=== PATIENT | female | born 1930 | race Caucasian/White ===

== ENCOUNTER 2017-01-31 10:33 | Emergency (ER) | payer OTHER, MEDICARE ==
[2017-01-31 10:44] VITALS: TEMP 97.4; BMI 20.2
[2017-01-31] MEDS ORDERED: morphine CARPU-JECT 4 MG/1 ML DISP.SYRIN IVPUSH ONE (10:47)
[2017-01-31] MEDS ORDERED: morphine CARPU-JECT 2 MG/1 ML DISP.SYRIN ONE (11:38)
--- NOTE | 2017-01-31 11:46 | PDOC ---
History of Present Illness - History of Present Illness Initial Comments: 01/31/17 11:49 The patient is an 86 year old female with a past medical history of HLD, dementia, presents to the emergency department with a complaint of left arm pain after an unwitnessed fall roughly 30 minutes prior to arrival. Patient deneis dizziness prior to fall. She states she lost her balance, possibly tripping over the table leg. Patients daughter heard the fall and came to her immediately. Daughter states she was found lying on her side. Patient reports difficulty moving her with left arm secondary to pain. Pain is on the left upper arm and upper side. No head trauma or loss of consciousness. Denies heart disease of lung disease. PCP: Prasad Golden Office: Surgical history: hysterectomy, pelvis fracture <Andres Gaitan - Last Filed: 01/31/17 11:53> <Rere Adame - Last Filed: 01/31/17 13:41> <Tennille Gann - Last Filed: 02/01/17 19:48> - General Chief Complaint: Injury Stated Complaint: ? LONG BONE FX FALL Time Seen by Provider: 01/31/17 10:47 Past History <Andres Gaitan - Last Filed: 01/31/17 11:53> <Rere Adame - Last Filed: 01/31/17 13:41> - Past Medical History Anemia: No Asthma: No Cancer: No Cardiac Disorders: No CVA: No COPD: No CHF: No Dementia: No Diabetes: No GI Disorders: Yes (COLONIC POLYPS) Disorders: No HTN: No Hypercholesterolemia: Yes Liver Disease: No Suicide Attempt (Hx): No Seizures: No Thyroid Disease: No Other medical history: GLUCOMA,OP,PLEVIS FX - Surgical History Abdominal Surgery: No Appendectomy: No Cardiac Surgery: No Cholecystectomy: No Lung Surgery: No Orthopedic Surgery: No - Immunization History Immunization Up to Date: No - Psycho/Social/Smoking Cessation Hx Anxiety: No Suicidal Ideation: No Smoking Status: No Smoking History: Never smoked Have you smoked in the past 12 months: No Number of Cigarettes Smoked Daily: 0 Information on smoking cessation initiated: No Hx Alcohol Use: No Drug/Substance Use Hx: No Substance Use Type: None Hx Substance Use Treatment: No <Tennille Gann - Last Filed: 02/01/17 19:48> - Past Medical History Allergies/Adverse Reactions: Allergies Allergy/AdvReac Type Severity Reaction Status Date / Time No Known Allergies Allergy Verified 01/31/17 10:37 Home Medications: Ambulatory Orders Atorvastatin Ca [Lipitor] 20 mg PO HS #0 tablet 06/08/13 Docusate Sodium [Colace -] 100 mg PO BID #0 capsule 06/08/13 Patient's Own Medication [Patient's Own Med (Nf) -] 1 each OU BID #0 med Alendronate Na [Fosamax (Weekly)] 70 mg PO Q7D 04/27/14 Aspirin [ASA -] 81 mg PO DAILY 04/27/14 Review of Systems - Review of Systems Able to Perform ROS?: Yes Comments:: 01/31/17 11:53 GENERAL/CONSTITUTIONAL: No fever or chills. No weakness. HEAD, EYES, EARS, NOSE AND THROAT: No change in vision. No ear pain or discharge. No sore throat. CARDIOVASCULAR: No chest pain or shortness of breath. RESPIRATORY: No cough, wheezing, or hemoptysis. GASTROINTESTINAL: No nausea, vomiting, diarrhea or constipation. GENITOURINARY: No dysuria, frequency, or change in urination. MUSCULOSKELETAL: Yes: left upper arm and shoulder pain. No neck or back pain. SKIN: No rash NEUROLOGIC: No headache, vertigo, loss of consciousness, or change in strength/ sensation. ENDOCRINE: No increased thirst. No abnormal weight change. HEMATOLOGIC/LYMPHATIC: No anemia, easy bleeding, or history of blood clots. ALLERGIC/IMMUNOLOGIC: No hives or skin allergy. Is the patient limited Indonesian proficient: No <Andres Gaitan - Last Filed: 01/31/17 11:53> *Physical Exam - Vital Signs Last Vital Signs Temp Pulse Resp BP Pulse Ox 97.4 F L 74 18 178/86 100 01/31/17 10:40 01/31/17 10:40 01/31/17 10:40 01/31/17 10:40 01/31/17 10:40 <Andres Gaitan - Last Filed: 01/31/17 11:53> - Vital Signs Last Vital Signs Temp Pulse Resp BP Pulse Ox 97.4 F L 74 18 178/86 100 01/31/17 10:40 01/31/17 10:40 01/31/17 10:40 01/31/17 10:40 01/31/17 10:40 - Physical Exam Comments: 01/31/17 12:29 GENERAL: The patient is in no acute distress. HEAD: Normal with no obvious signs of trauma. EYES: PERRLA, EOMI, sclera anicteric, conjunctiva clear. ENT: Ears normal, nares patent, oropharynx clear without exudates. Moist mucous membranes. NECK: Normal range of motion, supple without lymphadenopathy, JVD, or masses. LUNGS: Breath sounds equal, clear to auscultation bilaterally. No wheezes, and no crackles. HEART:Regular rate and rhythm, normal S1 and S2 without murmur, rub or gallop. ABDOMEN: Soft, nontender, normoactive bowel sounds. No guarding, no rebound. EXTREMITIES: Left shoulder appears dislocated, with decerased range of movement of left arm. No edema. No clubbing or cyanosis. No erythema, or tenderness. NEUROLOGICAL: Cranial nerves II through XII grossly intact. Normal speech. No focal neurological deficits. MUSCULOSKELETAL: Back non-tender to palpation, no CVA tenderness SKIN: Warm, Dry, normal turgor, no rashes or lesions noted. <[employer],Rere - Last Filed: 01/31/17 13:41> - Vital Signs Last Vital Signs Temp Pulse Resp BP Pulse Ox 97.4 F L 74 18 178/86 100 01/31/17 10:40 01/31/17 10:40 01/31/17 10:40 01/31/17 10:40 01/31/17 10:40 <Tennille Gann - Last Filed: 02/01/17 19:48> Procedures - Joint Reduction Left Progress: 01/31/17 13:43 Successful reduction with external rotation adduction and slight traction. Axillary intact. AIN, PIN, ulnar intact, radial pulse 2\4. Finger flexion and other hand motion strength 5/5. <Uts,Rere - Last Filed: 01/31/17 13:41> - Joint Reduction Left Joint Reduction Site: left: Shoulder Pre-Procedure NV Exam: normal Conscious Sedation: No Reduction Attempts: 1 Complications: No Post Joint Reduction Film: joint reduced Immobilized: Yes <Tennille Gann - Last Filed: 02/01/17 19:48> Heart Score/ECG Review #1 ECG reviewed & interpreted by me at: 13:19 01/31/17 13:19 Twelve-lead EKG was performed and reviewed by me. There is normal sinus rhythm with a normal rate of 73bpm. The axis is normal. The intervals are abnormal - pr : 138ms, QRS:82ms, QTc:500ms (prolonged). There are no ST elevations or depressions. T wave inversions inferior-laterally. <Tennille Gann - Last Filed: 02/01/17 19:48> ED Treatment Course - Medications Given in the ED: ED Medications Discontinued Medications Generic Name Dose Route Start Last Admin Trade Name Freq PRN Reason Stop Dose Admin Morphine Sulfate 2 mg 01/31/17 10:47 01/31/17 11:43 Morphine Injection - IVPUSH 01/31/17 10:48 2 mg ONCE ONE Administration <Andres Gaitan - Last Filed: 01/31/17 11:53> - LABORATORY CBC & Chemistry Diagram: 01/31/17 11:50 01/31/17 11:50 - ADDITIONAL ORDERS Additional order review: 01/31/17 11:50 RBC 4.41 MCV 91.4 MCHC 33.3 RDW 15.5 MPV 7.4 L Neutrophils % 59.2 Lymphocytes % 32.9 Monocytes % 5.8 Eosinophils % 1.2 D Basophils % 0.9 - RADIOLOGY Radiograph Interpretation: 01/31/17 13:42 Left humerus and shoulder XR impression reported by Dr. Cherry: No acute fracture identified. Findings consistent with anterior dislocation of the left shoulder joint. Head CT impression reported by Dr. Cherry: No significant interval change or acute intracranial pathology is identified - Medications Given in the ED: ED Medications Discontinued Medications Generic Name Dose Route Start Last Admin Trade Name Freq PRN Reason Stop Dose Admin Morphine Sulfate 2 mg 01/31/17 10:47 01/31/17 11:43 Morphine Injection - IVPUSH 01/31/17 10:48 2 mg ONCE ONE Administration <Rere Adame - Last Filed: 01/31/17 13:41> - LABORATORY CBC & Chemistry Diagram: 01/31/17 11:50 01/31/17 11:50 <Tennille Gann - Last Filed: 02/01/17 19:48> Medical Decision Making - Medical Decision Making A portion of this note was documented by scribe services under my direction. I have reviewed the details of the note, within reason, and agree with the documentation with the following case summary and management plan written by me. Nursing documentation reviewed and incorporated into medical decision making this is an 86 yo F h/o dementia and osteopenia She presents to the ER s/p fall Pt states she was in the kitchen and fell She denies chest pain, shortness of breath, palpitations, focal weakness or numbness He daughter was at home and was readily available to assist this patient She noted no seizure like activities and NO alterations in mentation On examination Pt is pleasant RRR Lungs clear Left shoulder dislocation Radial, medial, ulnar motor and sensation intact 2+ RP and UP 01/31/17 13:19 Laboratory Tests 01/31/17 01/31/17 11:50 11:50 WBC 8.1 D Hgb 13.4 Hct 40.3 Plt Count 223 Neutrophils % 59.2 Lymphocytes % 32.9 BUN 8 Creatinine 0.5 L Random Glucose 104 Creatine Kinase 122 Troponin I < 0.02 01/31/17 13:41 Shoulder reduced at bedside WITHOUT sedation Head CT: no acute ICH 01/31/17 13:46 Will repeat X ray Discharge to home in sling Follow up with Ortho Fall from standing Shoulder dislocation and subsequent reduction <Tennille Gann - Last Filed: 02/01/17 19:48> *DC/Admit/Observation/Transfer - Attestations Scribe Attestion: 01/31/17 11:53 Documentation prepared by Andres Gaitan, acting as medical staff services manager for Tennille Gann MD <Andres Gaitan - Last Filed: 01/31/17 11:53> - Attestations Scribe Attestion: 01/31/17 12:30 Documentation prepared by Rere Adame, acting as medical staff services manager for Tennille Gann MD/DO. <Rere Adame - Last Filed: 01/31/17 13:41> - Discharge Dispostion Admit: No <Tennille Gann - Last Filed: 02/01/17 19:48> Diagnosis at time of Disposition: Fall from standing Qualifiers: Encounter type: initial encounter Qualified Code(s): W19.XXXA - Unspecified fall, initial encounter Dislocation, shoulder, anterior Qualifiers: Encounter type: initial encounter Laterality: left Qualified Code(s): S43.015A - Anterior dislocation of left humerus, initial encounter - Discharge Dispostion Disposition: HOME Condition at time of disposition: Stable - Referrals Referrals: Prasad Golden MD [Primary Care Provider] - Saud Fisher MD [Staff Physician] - - Patient Instructions Printed Discharge Instructions: How to Prevent Falls, DI for Shoulder Dislocation Additional Instructions: Angela Thank you for coming in to the ER today Please be careful when walking Please wear sling for the next 48 hours After that please start range of motion exercises You can follow up with orthopedics in 1 week
[2017-01-31 11:58] LABS: BASOPHIL 0.9 % (0-2.0); EOSINOPHIL 1.2 % (0-4.5); MCH 30.4 pg (25.7-33.7); MCHC 33.3 g/dl (32.0-36.0); MEAN CELL VOLUME 91.4 fl (80-96); MEAN PLT VOLUME 7.4 fl (7.5-11.1); NEUTROPHILS 59.2 % (42.8-82.8); PLATELET COUNT 223 K/MM3 (134-434); RDW 15.5 % (11.6-15.6); WHITE BLOOD COUNT 8.1 K/mm3 (4.0-10.0)
[2017-01-31 12:27] LABS: ALBUMIN 3.6 g/dl (3.4-5.0); ALK PHOS 76 U/L (45-117); ANION GAP 11 (8-16); BILIRUBIN,TOTAL 0.8 mg/dL (0.2-1.0); CALCIUM 8.5 mg/dL (8.5-10.1); CO2 24 mmol/L (21-32); COCKROFT - GAULT 57.1285; CREATININE 0.5 mg/dL (0.55-1.02); GLUCOSE,RANDOM 104 mg/dL (74-106); SGOT/AST 26 U/L (15-37); SGPT/ALT 23 U/L (12-78); TOT PROT 7.2 g/dl (6.4-8.2)
[2017-01-31 12:29] LABS: TROPONIN I < 0.02 ng/ml (0.00-0.05)
[2017-01-31 14:48] VITALS: BP 152/85; PULSE 78
--- NOTE | 2017-02-01 13:38 | EKG ---
Test Reason : Blood Pressure : / mmHG Vent. Rate : 073 BPM Atrial Rate : 073 BPM P-R Int : 138 ms QRS Dur : 082 ms QT Int : 454 ms P-R-T Axes : 078 043 -63 degrees QTc Int : 500 ms NORMAL SINUS RHYTHM POSSIBLE LEFT ATRIAL ENLARGEMENT LEFT VENTRICULAR HYPERTROPHY WITH REPOLARIZATION ABNORMALITY PROLONGED QT ABNORMAL ECG WHEN COMPARED WITH ECG OF 08-JUN-2013 09:35, INVERTED T WAVES HAVE REPLACED NONSPECIFIC T WAVE ABNORMALITY IN INFERIOR LEADS T WAVE INVERSION MORE EVIDENT IN ANTERIOR LEADS CLINICAL CORRELATION IS RECOMMENDED Confirmed by KEYONA BENSON, AMY ([id number]) on 02/01/2017 1:38:20 PM Referred By: Confirmed By:AMY RAND MD
== END 2017-01-31 15:03 | disposition home or self-care (01) ==
LOC: JER 10:33
PROC: 0RSKXZZ Reposition Left Shoulder Joint, External Approach (ICD-10-PCS; principal; 2017-01-31)
PROC: 3E033NZ Introduction of Analgesics, Hypnotics, Sedatives into Peripheral Vein, Percutaneous Approach (ICD-10-PCS; 2017-01-31)
DX: S43.015A Anterior dislocation of left humerus, initial encounter (principal); W18.39XA Other fall on same level, initial encounter; Y93.89 Activity, other specified; Y92.018 Other place in single-family (private) house as the place of occurrence of the external cause; E78.00 Pure hypercholesterolemia, unspecified; Z86.010 Personal history of colon polyps
CPT/HCPCS: 23650; 36415; 70450-TC; 73030-TC-LT; 73060-TC-LT; 80053; 82550; 84484; 85025; 93005; 93010; 96374; 99283-25

== ENCOUNTER 2017-02-02 22:40 | Emergency (ER) | payer OTHER, MEDICARE ==
[2017-02-02 22:53] VITALS: BP 136/60; PULSE 88; BMI 20.5
--- NOTE | 2017-02-03 01:52 | PDOC ---
History of Present Illness - General History Source: Patient <Aman Ochoa - Last Filed: 02/03/17 01:52> - General History Source: Patient, Family Exam Limitations: No Limitations - History of Present Illness Initial Comments: 02/03/17 01:59 The patient is a 86 year old female with significant past medical history of dementia and hyperlipidemia who presents to the ED for swelling of the right hand. Patient was seen in the ER on 01/31 for a unwitnessed fall where she was found to have a left shoulder dislocation. At that time, her left shoulder was reduced in the ER. She returned yesterday after she developed significant swelling and pain to the right hand. An x-ray was done, which revealed a metacarpal fracture mildly displaced at base of right hand. Patient is currently in a thumb spica splint. However, family is concern that the splint is on too tight after noting swelling and some discoloration of the right hand. The patient denies fever, chills, cough, SOB, chest pain, and palpitations. The patient denies abdominal pain, nausea, vomiting, and diarrhea. Allergies: NKDA Social History: No alcohol, tobacco, or drug use reported. Past Surgical History: hysterectomy, pelvis fracture s/p repair PCP: Dr. Prasad Golden <Manuela Garcia - Last Filed: 02/03/17 02:00> - General Chief Complaint: Edema Stated Complaint: R HAND SWOLLEN/PAIN Time Seen by Provider: 02/03/17 01:36 Past History - Past Medical History Anemia: No Asthma: No Cancer: No Cardiac Disorders: No CVA: No COPD: No CHF: No Dementia: No Diabetes: No GI Disorders: Yes (COLONIC POLYPS) Disorders: No HTN: No Hypercholesterolemia: Yes Liver Disease: No Suicide Attempt (Hx): No Seizures: No Thyroid Disease: No - Surgical History Abdominal Surgery: No Appendectomy: No Cardiac Surgery: No Cholecystectomy: No Lung Surgery: No Orthopedic Surgery: No - Immunization History Immunization Up to Date: No - Psycho/Social/Smoking Cessation Hx Anxiety: No Suicidal Ideation: No Smoking Status: No Smoking History: Never smoked Have you smoked in the past 12 months: No Number of Cigarettes Smoked Daily: 0 Hx Alcohol Use: No Drug/Substance Use Hx: No Substance Use Type: None Hx Substance Use Treatment: No <Aman Ochoa - Last Filed: 02/03/17 01:52> <Manueal Garcia - Last Filed: 02/03/17 02:00> - Past Medical History Allergies/Adverse Reactions: Allergies Allergy/AdvReac Type Severity Reaction Status Date / Time No Known Allergies Allergy Verified 02/02/17 22:53 Home Medications: Ambulatory Orders Atorvastatin Ca [Lipitor] 20 mg PO HS #0 tablet 06/08/13 Docusate Sodium [Colace -] 100 mg PO BID #0 capsule 06/08/13 Patient's Own Medication [Patient's Own Med (Nf) -] 1 each OU BID #0 med Alendronate Na [Fosamax (Weekly)] 70 mg PO Q7D 04/27/14 Aspirin [ASA -] 81 mg PO DAILY 04/27/14 Review of Systems - Review of Systems Able to Perform ROS?: Yes Comments:: 02/03/17 02:00 CONSTITUTIONAL: Absent: fever, no chills, no fatigue EYES: Absent: visual changes ENT: Absent: ear pain, no sore throat CARDIOVASCULAR: Absent: chest pain, no palpitations RESPIRATORY: Absent: cough, no SOB GI: Absent: abdominal pain, no nausea, no vomiting, no constipation, no diarrhea GENITOURINARY: Absent: dysuria, no frequency, no hematuria MUSCULOSKELETAL: +right hand swelling Absent: back pain SKIN: Absent: rash NEURO: Absent: headache <Manuela Garcia - Last Filed: 02/03/17 02:00> *Physical Exam - Vital Signs Last Vital Signs Temp Pulse Resp BP Pulse Ox 88 18 136/60 99 02/02/17 22:52 02/02/17 22:52 02/02/17 22:52 02/02/17 22:52 <Aman Ochoa - Last Filed: 02/03/17 01:52> - Vital Signs Last Vital Signs Temp Pulse Resp BP Pulse Ox 88 18 136/60 99 02/02/17 22:52 02/02/17 22:52 02/02/17 22:52 02/02/17 22:52 - Physical Exam Comments: 02/03/17 02:00 GENERAL: Well-appearing, well-nourished. No apparent distress. HEENT: Normocephalic, atraumatic. PERRL, EOM intact. CARDIOVASCULAR: Normal S1, S2. Regular rate and rhythm. PULMONARY: Clear to auscultation bilaterally. ABDOMEN: Soft, non-distended, non-tender. EXTREMITIES: Swelling and ecchymosis to the right hand with good ROM. Splint in place, dry and intact SKIN: Warm, dry. No rash NEUROLOGICAL: No focal neurological deficits. <Manuela Garcia - Last Filed: 02/03/17 02:00> Medical Decision Making - Medical Decision Making 02/03/17 01:53 Dr. Ochoa: The scribe's documentation has been prepared under my direction and personally reviewed by me in its entirery. I confirm that the note above accurately reflects all work, treatment, procedures, and medical decision making performed by me. Pt c/o right hand swelling due to tight thumb spica splint place yesterday. Prosper bandage loosened and now pt feels better. Pt to follow up with Ortho. <Aman Ochoa - Last Filed: 02/03/17 01:52> *DC/Admit/Observation/Transfer - Discharge Dispostion Admit: No <Aman Ochoa - Last Filed: 02/03/17 01:52> - Attestations Scribe Attestion: 02/03/17 02:00 Documentation prepared by Manuela Garcia, acting as medical records assistant for Aman Ochoa MD. <Manuela Garcia - Last Filed: 02/03/17 02:00> Diagnosis at time of Disposition: Fx 1st metacarp base-closed, Swelling of right hand - Discharge Dispostion Disposition: HOME Condition at time of disposition: Improved - Referrals Referrals: Prasad Golden MD [Primary Care Provider] - Kenneth Boo MD [Staff Physician] - - Patient Instructions Printed Discharge Instructions: DI for Hand Injury Additional Instructions: Please follow up with the orthopedist you were referred to. Return if any problesm
== END 2017-02-03 01:58 | disposition home or self-care (01) ==
LOC: JER 22:40
DX: S62.318A Displaced fracture of base of other metacarpal bone, initial encounter for closed fracture (principal); M79.89 Other specified soft tissue disorders; W18.30XA Fall on same level, unspecified, initial encounter; Y93.89 Activity, other specified; Y92.9 Unspecified place or not applicable; F03.90 Unspecified dementia, unspecified severity, without behavioral disturbance, psychotic disturbance, mood disturbance, and anxiety; E78.5 Hyperlipidemia, unspecified
CPT/HCPCS: 73130-TC-RT; 99281-25; 99282-25

== ENCOUNTER 2017-11-26 09:46 | Emergency (ER) | payer OTHER, MEDICARE ==
--- NOTE | 2017-11-26 09:57 | PDOC ---
History of Present Illness - General History Source: Patient Exam Limitations: No Limitations - History of Present Illness Initial Comments: 11/26/17 10:35 The patient is a 87-year-old female with a significant past medical history of osteoporosis, HLD, and dementia, who presents to the emergency department with right knee pain and swelling since this morning. She states she was at home and took a step when her knee buckled. She states it felt like her knee twisted. She denies any fall or syncope. She reports difficulty walking and bending the knee afterwards. She states her pain is located mostly at the anteromedial aspect of the knee. She did not take any pain medication. She denies any previous injury or acute trauma to his knee. She denies calf or ankle pain. She denies any locking, catching, or numbness and tingling. The patient denies chest pain, shortness of breath, headache and dizziness. The patient denies fever, chills, nausea, vomit, diarrhea and constipation. The patient denies dysuria, frequency, urgency and hematuria. Allergies: NKDA Past Surgical History: hysterectomy, pelvis fracture s/p repair Social History: No toxic habits reported <January De La Rosa - Last Filed: 11/26/17 10:35> <Marzena Forte - Last Filed: 11/26/17 11:41> - General Stated Complaint: INJURY Time Seen by Provider: 11/26/17 09:56 Past History <Januayr De La Rosa - Last Filed: 11/26/17 10:35> - Past Medical History Anemia: No Asthma: No Cancer: No Cardiac Disorders: No CVA: No COPD: No CHF: No Dementia: No Diabetes: No GI Disorders: Yes (COLONIC POLYPS) Disorders: No HTN: No Hypercholesterolemia: Yes Liver Disease: No Seizures: No Thyroid Disease: No - Surgical History Abdominal Surgery: No Appendectomy: No Cardiac Surgery: No Cholecystectomy: No Lung Surgery: No Orthopedic Surgery: No - Immunization History Immunization Up to Date: No - Suicide/Smoking/Psychosocial Hx Smoking Status: No Smoking History: Never smoked Have you smoked in the past 12 months: No Number of Cigarettes Smoked Daily: 0 Hx Alcohol Use: No Drug/Substance Use Hx: No Substance Use Type: None Hx Substance Use Treatment: No <Marzena Forte - Last Filed: 11/26/17 11:41> - Past Medical History Allergies/Adverse Reactions: Allergies Allergy/AdvReac Type Severity Reaction Status Date / Time No Known Allergies Allergy Verified 11/26/17 10:22 Home Medications: Ambulatory Orders Cane 1 each DAILY #1 each 11/26/17 Review of Systems - Review of Systems Able to Perform ROS?: Yes Comments:: 11/26/17 10:35 GENERAL/CONSTITUTIONAL: No fever or chills. No weakness. HEAD, EYES, EARS, NOSE AND THROAT: No change in vision. No ear pain or discharge. No sore throat. CARDIOVASCULAR: No chest pain or shortness of breath. RESPIRATORY: No cough, wheezing, or hemoptysis. GASTROINTESTINAL: No nausea, vomiting, diarrhea or constipation. GENITOURINARY: No dysuria, frequency, or change in urination. MUSCULOSKELETAL: (+) Right knee pain and swelling. No muscle swelling or pain. No neck or back pain. SKIN: No rash NEUROLOGIC: No headache, vertigo, loss of consciousness, or change in strength/ sensation. ENDOCRINE: No increased thirst. No abnormal weight change. HEMATOLOGIC/LYMPHATIC: No anemia, easy bleeding, or history of blood clots. ALLERGIC/IMMUNOLOGIC: No hives or skin allergy. <RjJanuary - Last Filed: 11/26/17 10:35> *Physical Exam - Vital Signs Last Vital Signs Temp Pulse Resp BP Pulse Ox 98.4 F 84 18 170/86 100 11/26/17 10:17 11/26/17 10:17 11/26/17 10:17 11/26/17 10:17 11/26/17 10:17 - Physical Exam Comments: 11/26/17 10:36 GENERAL: Awake, alert, and fully oriented, in no acute distress HEAD: No signs of trauma EYES: PERRLA, EOMI, sclera anicteric, conjunctiva clear ENT: Auricles normal inspection, hearing grossly normal, nares patent, oropharynx clear without exudates. Moist mucosa NECK: Normal ROM, supple, no lymphadenopathy, JVD, or masses LUNGS: Breath sounds equal, clear to auscultation bilaterally. No wheezes, and no crackles HEART: Regular rate and rhythm, normal S1 and S2, no murmurs, rubs or gallops ABDOMEN: Soft, nontender, normoactive bowel sounds. No guarding, no rebound. No masses EXTREMITIES: (+) Right knee swollen, effusion and tenderness all along the medial aspect. (+) Limited ROM secondary to pain. No warmth or erythema. Pulses intact. No clubbing or cyanosis. No cords or erythema. NEUROLOGICAL: Cranial nerves II through XII grossly intact. Normal speech SKIN: Warm, Dry, normal turgor, no rashes or lesions noted. <January De La Rosa - Last Filed: 11/26/17 10:35> ED Treatment Course - Medications Given in the ED: ED Medications Discontinued Medications Generic Name Dose Route Start Last Admin Trade Name Katie PRN Reason Stop Dose Admin Acetaminophen 975 mg 11/26/17 10:06 11/26/17 10:20 Tylenol - PO 11/26/17 10:07 975 mg ONCE ONE Administration <January De La Rosa - Last Filed: 11/26/17 10:35> Medical Decision Making - Medical Decision Making 11/26/17 10:07 a/p: 87yo female with R knee pain -no fall -states it buckled under her when she was bending over -will obtain xrays -limited ROM secondary to pain and swelling -no warmth -no signs of septic joint -no erythema -will obtain xrays -tylenol for pain 11/26/17 11:36 xrays reviewed that show degenerative changes ambulatory in the ED will send Rx for a cane to assist with ambulation case discussed with the daughter - Isis who states mother has dementia discussed xray findings at baseline MS lives at home with daughter and stable for d/c to home <Marzena Forte - Last Filed: 11/26/17 11:41> *DC/Admit/Observation/Transfer - Attestations Scribe Attestion: 11/26/17 10:36 Documentation prepared by January De La Rosa, acting as medical receptionist biller for Marzena Forte DO, MD/. <January De La Rosa - Last Filed: 11/26/17 10:35> - Discharge Dispostion Admit: No - Attestations Physician Attestion: 11/26/17 11:40 I, Dr. Marzena Forte DO, attest that this document has been prepared under my direction and personally reviewed by me in its entirety. I further attest, that it accurately reflects all work, treatment, procedures and medical decision -making performed by me. <ReannaMarzena - Last Filed: 11/26/17 11:41> Diagnosis at time of Disposition: Knee pain, right - Discharge Dispostion Disposition: HOME Condition at time of disposition: Stable - Prescriptions Prescriptions: Cane 1 each MC DAILY #1 each - Referrals Referrals: Wilberto Dukes MD [Staff Physician] - Adal Cardozo MD [Staff Physician] - - Patient Instructions Printed Discharge Instructions: DI for Knee Pain Additional Instructions: Please take tylenol or motrin for the pain. Please walk with the cane to assist with walking. Please make a follow up appointment with your PMD and also the orthopedist for this week. Please return to the ED with any further concerns.
[2017-11-26] MEDS ORDERED: ACETAMINOPHEN 325 MG TABLET (FP) PO ONE (10:06)
[2017-11-26 10:22] VITALS: TEMP 98.4; BMI 18.5
[2017-11-26] MEDS ORDERED: ACETAMINOPHEN 325 MG TABLET (FP) ONE (10:23)
[2017-11-26 11:53] VITALS: BP 156/93; PULSE 82
== END 2017-11-26 12:00 | disposition home or self-care (01) ==
LOC: JER 09:46
DX: M25.461 Effusion, right knee (principal); R26.89 Other abnormalities of gait and mobility
CPT/HCPCS: 73564-TC-RT; 99283-25

== ENCOUNTER 2018-01-03 23:30 | Inpatient (IN) | payer OTHER, MEDICARE ==
[2018-01-03 23:34] VITALS: BMI 19.5
--- NOTE | 2018-01-03 23:47 | PDOC ---
History of Present Illness - General History Source: Patient Exam Limitations: No Limitations - History of Present Illness Initial Comments: 01/03/18 23:53 The patient is an 87 year old female with a significant PMH of dementia, hyperlipidemia, and osteoporosis who presents to the emergency department with left hip and left knee pain s/p unwitnessed fall just prior to arrival. The patient reports getting out of bed to turn off her light when her 'legs gave out ' and she landed in a seated position. The patient reports her left hip and left knee pain is alleviated by extending her legs. The patient denies chest pain, shortness of breath, headache and dizziness. Denies fever, chills, nausea, vomit, diarrhea and constipation. Denies dysuria, frequency, urgency and hematuria. Allergies: NKDA Past surgical history: Hysterectomy. Pelvis fracture repair. Social history: No reported cigarette, alcohol, or drug use. PCP: Dr. Prasad Golden. <Manpreet Moraes - Last Filed: 01/04/18 02:14> - General History Source: Patient <Aman Ochoa - Last Filed: 01/04/18 19:27> - General Chief Complaint: Pain Stated Complaint: LT HIP PAIN Time Seen by Provider: 01/03/18 23:42 Past History <Manpreet Moraes - Last Filed: 01/04/18 02:14> - Past Medical History Anemia: No Asthma: No Cancer: No Cardiac Disorders: No CVA: No COPD: No CHF: No Dementia: No Diabetes: No GI Disorders: Yes (COLONIC POLYPS) Disorders: No HTN: No Hypercholesterolemia: Yes Liver Disease: No Seizures: No Thyroid Disease: No - Surgical History Abdominal Surgery: No Appendectomy: No Cardiac Surgery: No Cholecystectomy: No Lung Surgery: No Orthopedic Surgery: No - Immunization History Immunization Up to Date: No - Suicide/Smoking/Psychosocial Hx Smoking Status: No Smoking History: Never smoked Have you smoked in the past 12 months: No Number of Cigarettes Smoked Daily: 0 Information on smoking cessation initiated: No Hx Alcohol Use: No Drug/Substance Use Hx: No Substance Use Type: None Hx Substance Use Treatment: No <Aman Ochoa - Last Filed: 01/04/18 19:27> - Past Medical History Allergies/Adverse Reactions: Allergies Allergy/AdvReac Type Severity Reaction Status Date / Time No Known Allergies Allergy Verified 01/03/18 23:32 Home Medications: Ambulatory Orders Cane 1 each MC DAILY #1 each 11/26/17 Aspirin [Ecotrin] 81 mg PO DAILY 01/04/18 Lisinopril [Zestril] 2.5 mg PO DAILY 01/04/18 Simvastatin [Zocor] 10 mg PO HS 01/04/18 Review of Systems - Review of Systems Able to Perform ROS?: Yes Comments:: 01/03/18 23:53 CONSTITUTIONAL: Absent: fever, chills, diaphoresis, generalized weakness, malaise, loss of appetite HEENT: Absent: rhinorrhea, nasal congestion, throat pain, throat swelling, difficulty swallowing, mouth swelling, ear pain, eye pain, visual Changes CARDIOVASCULAR: Absent: chest pain, syncope, palpitations, irregular heart rate, lightheadedness , peripheral edema RESPIRATORY: Absent: cough, shortness of breath, dyspnea with exertion, orthopnea, wheezing, stridor, hemoptysis GASTROINTESTINAL: Absent: abdominal pain, abdominal distension, nausea, vomiting, diarrhea, constipation, melena, hematochezia GENITOURINARY: Absent: dysuria, frequency, urgency, hesitancy, hematuria, flank pain, genital pain MUSCULOSKELETAL: (+) Left hip pain. (+) Left knee pain. Absent: joint swelling SKIN: Absent: rash, itching, pallor HEMATOLOGIC/IMMUNOLOGIC: Absent: easy bleeding, easy bruising, lymphadenopathy, frequent infections ENDOCRINE: Absent: unexplained weight gain, unexplained weight loss, heat intolerance, cold intolerance NEUROLOGIC: Absent: headache, focal weakness or paresthesias, dizziness, unsteady gait, seizure, mental status changes, bladder or bowel incontinence PSYCHIATRIC: Absent: anxiety, depression, suicidal or homicidal ideation, hallucinations. <Manpreet Moraes - Last Filed: 01/04/18 02:14> *Physical Exam - Vital Signs Last Vital Signs Temp Pulse Resp BP Pulse Ox 76 14 123/48 98 01/03/18 23:33 01/03/18 23:33 01/03/18 23:33 01/03/18 23:33 - Physical Exam Comments: 01/03/18 23:54 GENERAL: Well developed, well nourished. Awake and alert. No acute distress. HEENT: Normocephalic, atraumatic. PERRLA, EOMI. No conjunctival pallor. Sclera are non- icteric. Moist mucous membranes. Oropharynx is clear. NECK: Supple. Full ROM. No JVD. Carotid pulses 2+ and symmetric, without bruits. No thyromegaly. No lymphadenopathy. CARDIOVASCULAR: Regular rate and rhythm. No murmurs, rubs, or gallops. Distal pulses are 2+ and symmetric. PULMONARY: No evidence of respiratory distress. Lungs clear to auscultation bilaterally. No wheezing, rales or rhonchi. ABDOMINAL: Soft. Non-tender. Non-distended. No rebound or guarding. No organomegaly. Normoactive bowel sounds. MUSCULOSKELETAL:No bony deformities or tenderness.. Pelvis stable, no rock. Hips appear stable. Femurs stable. Both knees stable. Normal range of motion at all joints. No CVA tenderness. EXTREMITIES: No cyanosis. No clubbing. No edema. No calf tenderness. SKIN: Warm and dry. Normal capillary refill. No rashes. No jaundice. NEUROLOGICAL: Alert, awake, appropriate. Cranial nerves 2-12 intact. No deficits to light touch and temperature in face, upper extremities and lower extremities. No motor deficits in the in face, upper extremities and lower extremities. Normoreflexic in the upper and lower extremities. Normal speech. Toes are downgoing bilaterally. Gait is normal without ataxia. PSYCHIATRIC: Cooperative. Good eye contact. Appropriate mood and affect. <Manpreet Moraes - Last Filed: 01/04/18 02:14> - Vital Signs Last Vital Signs Temp Pulse Resp BP Pulse Ox 76 14 123/48 98 01/03/18 23:33 01/03/18 23:33 01/03/18 23:33 01/03/18 23:33 <Aman Ochoa - Last Filed: 01/04/18 19:27> ED Treatment Course - LABORATORY CBC & Chemistry Diagram: 01/04/18 00:59 01/04/18 00:59 <Manpreet Moraes - Last Filed: 01/04/18 02:14> - LABORATORY CBC & Chemistry Diagram: 01/04/18 06:20 01/04/18 06:20 <Aman Ochoa - Last Filed: 01/04/18 19:27> Medical Decision Making - Medical Decision Making 01/04/18 19:27 Dr. Ochoa: The scribe's documentation has been prepared under my direction and personally reviewed by me in its entirery. I confirm that the note above accurately reflects all work, treatment, procedures, and medical decision making performed by me. <Aman Ochoa - Last Filed: 01/04/18 19:27> *DC/Admit/Observation/Transfer - Attestations Scribe Attestion: 01/03/18 23:54 Documentation prepared by Manpreet Moraes, acting as electromedical service engineer for Aman Ochoa DO. <Manpreet Moraes - Last Filed: 01/04/18 02:14> - Discharge Dispostion Admit: Yes <Aman Ochoa - Last Filed: 01/04/18 19:27> Diagnosis at time of Disposition: Closed left hip fracture Qualifiers: Encounter type: initial encounter Qualified Code(s): S72.002A - Fracture of unspecified part of neck of left femur, initial encounter for closed fracture - Discharge Dispostion Condition at time of disposition: Stable
[2018-01-04 01:10] LABS: BASO % 0.7 % (0-2.0); EOS % 0.8 % (0-4.5); HEMATOCRIT 38.7 % (32.4-45.2); HEMOGLOBIN 13.1 GM/dL (10.7-15.3); MCH 30.9 pg (25.7-33.7); MCHC 33.7 g/dl (32.0-36.0); MEAN CELL VOLUME 91.7 fl (80-96); MEAN PLT VOLUME 7.3 fl (7.5-11.1); MONO % 6.8 % (3.8-10.2); NEUT % 58.7 % (42.8-82.8); PLATELET COUNT 238 K/MM3 (134-434); RBC 4.22 M/mm3 (3.60-5.2); RDW 15.5 % (11.6-15.6); WHITE BLOOD COUNT 8.1 K/mm3 (4.0-10.0)
[2018-01-04 01:21] LABS: INR 0.96 (0.82-1.09); PROTHROMBIN TIME (PATIENT) 10.8 SEC (9.98-11.88)
[2018-01-04] MEDS: SODIUM CHLORIDE 1,000 ML IV SCH ×2 (01:29→10:34)
[2018-01-04 01:30] LABS: URINE APPEARANCE SLCLOUDY; URINE BILIRUBIN NEGATIVE (NEGATIVE); URINE BLOOD NEGATIVE (NEGATIVE); URINE COLOR LTYELLOW; URINE GLUCOSE (UA) NEGATIVE (NEGATIVE); URINE KETONE NEGATIVE (NEGATIVE); URINE LEUK ESTERASE TRACE (NEGATIVE); URINE NITRITE NEGATIVE (NEGATIVE); URINE PROTEIN NEGATIVE (NEGATIVE); URINE UROBILINOGEN NEGATIVE mg/dL (0.2-1.0)
[2018-01-04 01:32] LABS: ALBUMIN 3.4 g/dl (3.4-5.0); ALK PHOS 75 U/L (45-117); ANION GAP 11 (8-16); BILIRUBIN,TOTAL 0.6 mg/dL (0.2-1.0); BLOOD UREA NITROGEN 16 mg/dL (7-18); CALCIUM 8.7 mg/dL (8.5-10.1); CHLORIDE 104 mmol/L (98-107); CO2 24 mmol/L (21-32); CREATININE 0.5 mg/dL (0.55-1.02); GLUCOSE,RANDOM 116 mg/dL (74-106); SGPT/ALT 21 U/L (12-78); SODIUM 139 mmol/L (136-145); TOT PROT 6.8 g/dl (6.4-8.2)
[2018-01-04 01:35] LABS: URINE BACTERIA MANY /hpf (NONE SEEN); URINE MUCUS RARE
[2018-01-04 01:37] LABS: POTASSIUM 4.7 mmol/L (3.5-5.1); SGOT/AST 34 U/L (15-37)
--- NOTE | 2018-01-04 02:18 | PN ---
Teaching Attending Note Name of Resident: Suzanne Angel ATTENDING PHYSICIAN STATEMENT I saw and evaluated the patient. I reviewed the resident's note and discussed the case with the resident. I agree with the resident's findings and plan as documented. SUBJECTIVE: 87 yo F with pmhx of dementia, hld, and osteoporosis who presents with l. hip, knee pain s/p unwitnessed fall. Pt. was getting up to turn off her light when her "legs gave out" and she landed on her buttocks. No chest pain, pressure or shortness of breath. She denies any pain. IS not sure how she fell, but denies loss of consciousness. OBJECTIVE: Physical: VS: Vital Signs Period Temp Pulse Resp BP Sys/Pulido Pulse Ox Last 24 Hr 69-76 14-15 114-123/48-62 98 GEN: NAD, Resting in bed, AA0 X(1-2) HEENT: NCAT, PERRL, Throat without erythema or exudates CARD: RRR S1, S2 RESP: CTAB ABD: Bsx4, NTD to Palpation EXT: - C/C/E, DP pulses intact CBCD WBC 8.1 K/mm3 (4.0-10.0) 01/04/18 00:59 RBC 4.22 M/mm3 (3.60-5.2) 01/04/18 00:59 Hgb 13.1 GM/dL (10.7-15.3) 01/04/18 00:59 Hct 38.7 % (32.4-45.2) 01/04/18 00:59 MCV 91.7 fl (80-96) 01/04/18 00:59 MCHC 33.7 g/dl (32.0-36.0) 01/04/18 00:59 RDW 15.5 % (11.6-15.6) 01/04/18 00:59 Plt Count 238 K/MM3 (134-434) 01/04/18 00:59 MPV 7.3 fl (7.5-11.1) L 01/04/18 00:59 CMP Sodium 139 mmol/L (136-145) 01/04/18 00:59 Potassium 4.7 mmol/L (3.5-5.1) 01/04/18 00:59 Chloride 104 mmol/L (98-107) 01/04/18 00:59 Carbon Dioxide 24 mmol/L (21-32) 01/04/18 00:59 Anion Gap 11 (8-16) 01/04/18 00:59 BUN 16 mg/dL (7-18) 01/04/18 00:59 Creatinine 0.5 mg/dL (0.55-1.02) L 01/04/18 00:59 Creat Clearance w eGFR > 60 (>60) 01/04/18 00:59 Random Glucose 116 mg/dL (74-106) H 01/04/18 00:59 Calcium 8.7 mg/dL (8.5-10.1) 01/04/18 00:59 Total Bilirubin 0.6 mg/dL (0.2-1.0) D 01/04/18 00:59 AST 34 U/L (15-37) 01/04/18 00:59 ALT 21 U/L (12-78) 01/04/18 00:59 Alkaline Phosphatase 75 U/L (45-117) 01/04/18 00:59 Total Protein 6.8 g/dl (6.4-8.2) 01/04/18 00:59 Albumin 3.4 g/dl (3.4-5.0) 01/04/18 00:59 Urine Test Results Urine Color Ltyellow 01/04/18 01:20 Urine Appearance Slcloudy 01/04/18 01:20 Urine pH 8.0 (5.0-8.0) 01/04/18 01:20 Ur Specific [place] 1.010 (1.001-1.035) 01/04/18 01:20 Urine Protein Negative (NEGATIVE) 01/04/18 01:20 Urine Glucose (UA) Negative (NEGATIVE) 01/04/18 01:20 Urine Ketones Negative (NEGATIVE) 01/04/18 01:20 Urine Blood Negative (NEGATIVE) 01/04/18 01:20 Urine Nitrite Negative (NEGATIVE) 01/04/18 01:20 Urine Bilirubin Negative (NEGATIVE) 01/04/18 01:20 Ur Leukocyte Esterase Trace (NEGATIVE) 01/04/18 01:20 Urine Bacteria Many /hpf (NONE SEEN) 01/04/18 01:20 Urine Mucus Rare 01/04/18 01:20 Home Medications Medication Instructions Recorded Cane 1 each MC DAILY #1 each 11/26/17 Hip L: L. Femoral Neck Fx EKG:PENDING ASSESSMENT AND PLAN: 87 yo F with pmhx of dementia, hld, and osteoporosis who presents with l. hip, knee pain s/p unwitnessed fall. 1.) Mechanical Fall - Poor historian- CT HEAD - L. Femoral Neck Fx - Ortho consult - Type & Screen - NPO - Coags, rpt. CBC - EKG - Gentle IVF 2.) Dementia - Get home meds from pharmacy in a, 3.) HLD - Pt. unsure what home meds 4.) Dvt Ppx - As per ortho Place in Med-Sx
[2018-01-04] MEDS ORDERED: ACETAMINOPHEN 325 MG TABLET (FP) PO PRN (02:27)
[2018-01-04] MEDS ORDERED: HEPARIN NA (PORCINE) 5,000 UNITS/ML 1ML VIAL SQ SCH (02:30)
--- NOTE | 2018-01-04 03:02 | HP ---
CHIEF COMPLAINT: fall HISTORY OF PRESENT ILLNESS: 87 year old female with a history of HLD, osteoporosis, and dementia presented to the hospital s/p unwitnessed fall. Patient is a poor historian but is able to answer questions. She believes she tripped while getting up out of bed and hit her left side. Denies hitting her head, but is unsure. Patient reports not feeling lightheaded, not having any chest pain, palpitations, or shortness of breath. States that she is not in very much pain (3-4/10) and wishes to go home. Denies dysuria. ER course was notable for: (1) pelvis xray (+) for L femoral neck fracture (2) UA many bacteria (3) PAST MEDICAL HISTORY: HLD, osteoporosis, and dementia PAST SURGICAL HISTORY: unknown Social History: Smoking: unknown Alcohol: unknown Drugs: unknown Family History: Allergies No Known Allergies Allergy (Verified 01/03/18 23:32) HOME MEDICATIONS: Home Medications Medication Instructions Recorded Cane 1 each DAILY #1 each 11/26/17 REVIEW OF SYSTEMS CONSTITUTIONAL: Absent: fever, chills, diaphoresis, generalized weakness, malaise, loss of appetite, weight change HEENT: Absent: rhinorrhea, nasal congestion, throat pain, throat swelling, difficulty swallowing, mouth swelling, ear pain, eye pain, visual changes CARDIOVASCULAR: Absent: chest pain, syncope, palpitations, irregular heart rate, lightheadedness , peripheral edema RESPIRATORY: Absent: cough, shortness of breath, dyspnea with exertion, orthopnea, wheezing, stridor, hemoptysis GASTROINTESTINAL: Absent: abdominal pain, abdominal distension, nausea, vomiting, diarrhea, constipation, melena, hematochezia GENITOURINARY: Absent: dysuria, frequency, urgency, hesitancy, hematuria, flank pain, genital pain MUSCULOSKELETAL: Absent: myalgia, arthralgia, joint swelling, back pain, neck pain SKIN: Absent: rash, itching, pallor HEMATOLOGIC/IMMUNOLOGIC: Absent: easy bleeding, easy bruising, lymphadenopathy, frequent infections ENDOCRINE: Absent: unexplained weight gain, unexplained weight loss, heat intolerance, cold intolerance NEUROLOGIC: Absent: headache, focal weakness or paresthesias, dizziness, unsteady gait, seizure, mental status changes, bladder or bowel incontinence PSYCHIATRIC: Absent: anxiety, depression, suicidal or homicidal ideation, hallucinations. PHYSICAL EXAMINATION Vital Signs - 24 hr 01/03/18 01/04/18 23:33 02:11 Pulse Rate 76 Pulse Rate [ 69 Apical] Respiratory 14 15 Rate Blood Pressure 123/48 Blood Pressure 114/62 [Left Arm] O2 Sat by Pulse 98 Oximetry (%) GENERAL: A&O x 2, no acute distress HEAD: Normal with no signs of trauma. EYES: PERRLA, EOMI ENT: moist membranes LUNGS: CTA HEART: RRR, no murmurs ABDOMEN: soft, nontender, nondistended MUSCULOSKELETAL: decreased ROM of LLE due to pain, LLE is externally rotated at the hip, 2+ pulses bilaterally, no paresthesias NEUROLOGICAL: Cranial nerves II-XII intact, muscle strength 5/5 RLE, 2/5 LLE restricted due to pain, sensation intact b/l, reflexes intact Laboratory Results - last 24 hr 01/04/18 01/04/18 01/04/18 00:59 00:59 00:59 WBC 8.1 RBC 4.22 Hgb 13.1 Hct 38.7 MCV 91.7 MCH 30.9 MCHC 33.7 RDW 15.5 Plt Count 238 MPV 7.3 L Neutrophils % 58.7 Lymphocytes % 33.0 Monocytes % 6.8 Eosinophils % 0.8 Basophils % 0.7 PT with INR 10.80 INR 0.96 Sodium 139 Potassium 4.7 Chloride 104 Carbon Dioxide 24 Anion Gap 11 BUN 16 Creatinine 0.5 L Creat Clearance w eGFR > 60 Random Glucose 116 H Calcium 8.7 Total Bilirubin 0.6 D AST 34 ALT 21 Alkaline Phosphatase 75 Total Protein 6.8 Albumin 3.4 Urine Color Urine Appearance Urine pH Ur Specific [place] Urine Protein Urine Glucose (UA) Urine Ketones Urine Blood Urine Nitrite Urine Bilirubin Urine Urobilinogen Ur Leukocyte Esterase Urine WBC (Auto) Urine RBC (Auto) Urine Bacteria Urine Mucus 01/04/18 01:20 WBC RBC Hgb Hct MCV MCH MCHC RDW Plt Count MPV Neutrophils % Lymphocytes % Monocytes % Eosinophils % Basophils % PT with INR INR Sodium Potassium Chloride Carbon Dioxide Anion Gap BUN Creatinine Creat Clearance w eGFR Random Glucose Calcium Total Bilirubin AST ALT Alkaline Phosphatase Total Protein Albumin Urine Color Ltyellow Urine Appearance Slcloudy Urine pH 8.0 Ur Specific [place] 1.010 Urine Protein Negative Urine Glucose (UA) Negative Urine Ketones Negative Urine Blood Negative Urine Nitrite Negative Urine Bilirubin Negative Urine Urobilinogen Negative Ur Leukocyte Esterase Trace Urine WBC (Auto) 3 Urine RBC (Auto) 1 Urine Bacteria Many Urine Mucus Rare ASSESSMENT/PLAN: 87 year old female with a hx of dementia, HLD, osteoporosis, admitted to the hospital s/p unwitnessed fall #L Hip Fracture: acute, not in distress -Dr. Cardozo consult appreciated -pain control, tylenol for now, not in acute distress -NPO for now -f/u official reads of xrays hip/knees -CT head to r/o head trauma -fluid hydration NS -bedrest -Physical therapy #Asymptomatic Bacteriuria: stable -no indication to treat -araiza in place draining clear, yellow urine #Hyperlipidemia: not an acute issue -need to confirm home medications, patient is unsure what she takes at home #FEN: -NS @ 83cc/hr -replete lytes in AM -NPO until ortho sees patient #Prophylaxis: -heparin 5000 subQ #Disposition: -admit to med surg Visit type - Emergency Visit Emergency Visit: Yes Care time: The patient presented to the Emergency Department on the above date and was hospitalized for further evaluation of their emergent condition. - New Patient This patient is new to me today: Yes Date on this admission: 01/04/18 - Critical Care Critical Care patient: No Hospitalist Screening - Colonoscopy Questionnaire Colonoscopy Questionnaire: Colonoscopy Questionnaire - Patient: 50 - 75 years old and never had a screening colonoscopy: Unknown History of colon or rectal polyps, or CA: Unknown History of IBD, Crohn's disease or UC: Unknown History of abdominal radiation therapy as a child: Unknown - Relative: 1 with colon or rectal CA, or polyps at age 60 or younger: Unknown Colon or rectal CA diagnosed at age 45 or younger: Unknown Multiple relatives with colon or rectal CA: Unknown - Outcome: Screening Result: Negative Screen
--- NOTE | 2018-01-04 07:32 | PN ---
Physical Exam: SUBJECTIVE: Patient seen and examined by me this AM - No overnight events. No f/c/n/v. No SOB, cough, CP, abdominal pain, dizziness , vision changes. Endorses pain in R arm and L hip. Denies any numbness or weakness peripherally. States that she fell on her L side when "changing elevators at [facility]". OBJECTIVE: Vital Signs Intake & Output 01/01/18 01/02/18 01/03/18 01/04/18 23:59 23:59 23:59 23:59 Intake Total 250 Output Total 18 Balance 232 Weight 45.359 kg 45.359 kg Period Temp Pulse Resp BP Sys/Pulido Pulse Ox Last 24 Hr 97.6 F-97.6 F 69-76 14-18 114-157/48-83 98-98 GENERAL: Elderly woman, NAD, A&Ox2 HEAD: Normal with no signs of trauma. EYES: PERRL, extraocular movements intact, sclera anicteric, conjunctiva clear. No ptosis. ENT: Ears normal, nares patent, oropharynx clear without exudates, moist mucous membranes. NECK: Trachea midline, full range of motion, supple. LUNGS: Breath sounds equal, clear to auscultation bilaterally, no wheezes, no crackles, no accessory muscle use. HEART: 2/6 systolic ejection murmur at RUSB. Regular rate and rhythm, S1, S2 without murmur, rub or gallop. ABDOMEN: Soft, nontender, nondistended, normoactive bowel sounds, no guarding, no rebound, no hepatosplenomegaly, no masses. EXTREMITIES: L leg externally rotated. 2+ pulses, warm, well-perfused, no edema. 5/5 strength in UEs, 2+ radial pulses. 5/5 strength in RLE, 5/5 strength distally in L distal LE, decreased ROM at hip due to pain. No sensory deficits in any extremity. No gross deformity, ecchymoses or crepitus in L hip. NEUROLOGICAL: Cranial nerves II through XII grossly intact. Normal speech, gait not observed. 2+ DP, PT pulses BL. Minimal pain to palpation at L hip. PSYCH: Normal mood, normal affect. SKIN: Warm, dry, normal turgor, no rashes or lesions noted Laboratory Results - last 24 hr CBC, BMP 01/04/18 06:20 03/14/18 06:20 01/04/18 01/04/18 01/04/18 00:59 00:59 00:59 WBC 8.1 RBC 4.22 Hgb 13.1 Hct 38.7 MCV 91.7 MCH 30.9 MCHC 33.7 RDW 15.5 Plt Count 238 MPV 7.3 L Neutrophils % 58.7 Lymphocytes % 33.0 Monocytes % 6.8 Eosinophils % 0.8 Basophils % 0.7 PT with INR 10.80 INR 0.96 Sodium 139 Potassium 4.7 Chloride 104 Carbon Dioxide 24 Anion Gap 11 BUN 16 Creatinine 0.5 L Creat Clearance w eGFR > 60 Random Glucose 116 H Calcium 8.7 Total Bilirubin 0.6 D AST 34 ALT 21 Alkaline Phosphatase 75 Total Protein 6.8 Albumin 3.4 Urine Color Urine Appearance Urine pH Ur Specific [place] Urine Protein Urine Glucose (UA) Urine Ketones Urine Blood Urine Nitrite Urine Bilirubin Urine Urobilinogen Ur Leukocyte Esterase Urine WBC (Auto) Urine RBC (Auto) Urine Bacteria Urine Mucus Blood Type Antibody Screen 01/04/18 01/04/18 00:59 01:20 WBC RBC Hgb Hct MCV MCH MCHC RDW Plt Count MPV Neutrophils % Lymphocytes % Monocytes % Eosinophils % Basophils % PT with INR INR Sodium Potassium Chloride Carbon Dioxide Anion Gap BUN Creatinine Creat Clearance w eGFR Random Glucose Calcium Total Bilirubin AST ALT Alkaline Phosphatase Total Protein Albumin Urine Color Ltyellow Urine Appearance Slcloudy Urine pH 8.0 Ur Specific [place] 1.010 Urine Protein Negative Urine Glucose (UA) Negative Urine Ketones Negative Urine Blood Negative Urine Nitrite Negative Urine Bilirubin Negative Urine Urobilinogen Negative Ur Leukocyte Esterase Trace Urine WBC (Auto) 3 Urine RBC (Auto) 1 Urine Bacteria Many Urine Mucus Rare Blood Type A POSITIVE Antibody Screen Negative Active Medications Generic Name Dose Route Start Last Admin Trade Name Freq PRN Reason Stop Dose Admin Acetaminophen 650 mg 01/04/18 02:27 Tylenol - PO Q4H PRN PAIN Sodium Chloride 1,000 mls @ 125 mls/hr 01/04/18 00:45 01/04/18 01:29 Normal Saline - IV 125 mls/hr ASDIR DENISA Administration pelvic XR 01/04 - Impression. Acute intertrochanteric fracture of the left hip. Normal relationship of the femoral head to the acetabulum. Head CT 01/04 - Impression. No evidence of acute intracranial hemorrhage, edema, midline shift, mass effect, or skull fracture. No CT evidence of acute territorial ischemic changes. BL Knee XR 01/04 -External rotational displacement of L femur relative to acetabulum. No other fx's noted. ASSESSMENT/PLAN: 87 year old female with a hx of dementia, HLD, osteoporosis, admitted to the hospital s/p unwitnessed fall, now w/ L intertrochanteric fx, plan for Gamma Nail tomorrow with Dr. Wiley. #L Hip Fracture/mechanical fall - -Ortho consulted, plan for Gamma Nail tomorrow w/ Dr. Wiley -pain control w/ tylenol, morphine for breakthrough pain; well controlled currently -NPO at midnight -CT head negative -IVFs -Bedrest -PT - Hold home ASA - O2 support prn - Hold Heparin prior to surgery per standard ortho recs #Asymptomatic Bacteriuria - stable -no need for tx -araiza #Hyperlipidemia- chronic -Lipitor 10mg #FEN: -NS, 83cc/hr -Daily lytes -regular diet, NPO after midnight #Prophylaxis: - Will restart heparin after surgery #Disposition: M/S Plan discussed with attending, Dr. Jovani Archibald, PGY1 Visit type - Emergency Visit Emergency Visit: Yes ED Registration Date: 01/04/18 Care time: The patient presented to the Emergency Department on the above date and was hospitalized for further evaluation of their emergent condition. - New Patient This patient is new to me today: Yes Date on this admission: 01/04/18 - Critical Care Critical Care patient: No
[2018-01-04 07:57] LABS: ANION GAP 13 (8-16); BLOOD UREA NITROGEN 12 mg/dL (7-18); CALCIUM 8.1 mg/dL (8.5-10.1); CHLORIDE 106 mmol/L (98-107); CO2 20 mmol/L (21-32); CREATININE 0.5 mg/dL (0.55-1.02); GLUCOSE,RANDOM 120 mg/dL (74-106); POTASSIUM 3.6 mmol/L (3.5-5.1); SODIUM 139 mmol/L (136-145)
[2018-01-04 08:53] LABS: HEMATOCRIT 35.7 % (32.4-45.2); HEMOGLOBIN 12.2 GM/dL (10.7-15.3); MCH 31.1 pg (25.7-33.7); MCHC 34.3 g/dl (32.0-36.0); MEAN CELL VOLUME 90.6 fl (80-96); MEAN PLT VOLUME 7.8 fl (7.5-11.1); PLATELET COUNT 263 K/MM3 (134-434); RBC 3.94 M/mm3 (3.60-5.2); RDW 15.3 % (11.6-15.6); WHITE BLOOD COUNT 10.2 K/mm3 (4.0-10.0)
--- NOTE | 2018-01-04 10:09 | CONSULT ---
Consult - text type - Consultation Consultation Note: Asked to eval this 84F who sustained a left hip fracture after unwitnessed fall. Has history of dementia. PMH: Dementia/Hyperlipidemia/osteoporosis (history obtained from chart) Meds: reviewed in chart All: NKDA FH: unable to obtain SH: lives with and daughter. No reported cig/etoh/ivda PE: awake, alert, not oriented to place and time skin intact, well nourished b/l ue rom without pain LLE shortened, ER, DP 2+, no edema RLE PROM without pain, no peripheral edema, DP 2+ neurologic grossly intact but focused exam not possible due to dementia Xrays: Left basicervical femoral neck fracture Imp: Left unstable hip fracture, patient is home ambulator -will need IMN fixation -await medical clearance -NPO p midnight -ok for pharmacologic dvt prophylaxix today, discontinue 12 hrs prior to surgery unless long acting agent -discussed diagnosis and plan with daughter Isis (cell [phone]) and Emile (home: [phone]). is health care proxy. He understands R/B/A of the surgery. Risks include but not limited to infection, neurovascular injury, non union, mal union, hardware failure, malrotation, limb shortening, anesthesia complications including . Informed consent obtained over the phone. Despite risks, given pre injury ambulatory status, surgery is indicated. Will plan for OR tomorrow pending medical clearance and OR availability.
--- NOTE | 2018-01-04 10:48 | EKG ---
Test Reason : Blood Pressure : / mmHG Vent. Rate : 078 BPM Atrial Rate : 078 BPM P-R Int : 128 ms QRS Dur : 080 ms QT Int : 466 ms P-R-T Axes : 079 048 251 degrees QTc Int : 531 ms SINUS RHYTHM WITH OCCASIONAL PREMATURE VENTRICULAR COMPLEXES POSSIBLE LEFT ATRIAL ENLARGEMENT LEFT VENTRICULAR HYPERTROPHY WITH REPOLARIZATION ABNORMALITY cannot r/o anteriolateral ischemia PROLONGED QT ABNORMAL ECG WHEN COMPARED WITH ECG OF 31-JAN-2017 12:40, PREMATURE VENTRICULAR COMPLEXES ARE NOW PRESENT Confirmed by REY BENSON, ALMA DELIA ([id number]) on 01/04/2018 10:48:15 AM Referred By: Confirmed By:ALMA DELIA LE MD
--- NOTE | 2018-01-04 17:39 | PN ---
Teaching Attending Note Name of Resident: Joselo Archibald ATTENDING PHYSICIAN STATEMENT I saw and evaluated the patient. I reviewed the resident's note and discussed the case with the resident. I agree with the resident's findings and plan as documented. SUBJECTIVE: Patient is confused. She reports mild left hip pain. OBJECTIVE: Vital Signs Period Temp Pulse Resp BP Sys/Pulido Pulse Ox Last 24 Hr 97.6 F-98.1 F 69-105 14-18 114-157/48-83 98-98 HEART: S1S2, RRR LUNGS: Clear ABDOMEN: Soft, non-tender, non-distended, normal BS EXTREMITIES: No edema. Left leg externally rotated Laboratory Results - last 24 hr 01/04/18 01/04/18 01/04/18 00:59 00:59 00:59 WBC 8.1 RBC 4.22 Hgb 13.1 Hct 38.7 MCV 91.7 MCH 30.9 MCHC 33.7 RDW 15.5 Plt Count 238 MPV 7.3 L Neutrophils % 58.7 Lymphocytes % 33.0 Monocytes % 6.8 Eosinophils % 0.8 Basophils % 0.7 PT with INR 10.80 INR 0.96 Sodium 139 Potassium 4.7 Chloride 104 Carbon Dioxide 24 Anion Gap 11 BUN 16 Creatinine 0.5 L Creat Clearance w eGFR > 60 Random Glucose 116 H Calcium 8.7 Total Bilirubin 0.6 D AST 34 ALT 21 Alkaline Phosphatase 75 Total Protein 6.8 Albumin 3.4 Urine Color Urine Appearance Urine pH Ur Specific [place] Urine Protein Urine Glucose (UA) Urine Ketones Urine Blood Urine Nitrite Urine Bilirubin Urine Urobilinogen Ur Leukocyte Esterase Urine WBC (Auto) Urine RBC (Auto) Urine Bacteria Urine Mucus Blood Type Antibody Screen 01/04/18 01/04/18 01/04/18 00:59 01:20 06:20 WBC 10.2 H RBC 3.94 Hgb 12.2 Hct 35.7 MCV 90.6 MCH 31.1 MCHC 34.3 RDW 15.3 Plt Count 263 MPV 7.8 Neutrophils % Lymphocytes % Monocytes % Eosinophils % Basophils % PT with INR INR Sodium Potassium Chloride Carbon Dioxide Anion Gap BUN Creatinine Creat Clearance w eGFR Random Glucose Calcium Total Bilirubin AST ALT Alkaline Phosphatase Total Protein Albumin Urine Color Ltyellow Urine Appearance Slcloudy Urine pH 8.0 Ur Specific [place] 1.010 Urine Protein Negative Urine Glucose (UA) Negative Urine Ketones Negative Urine Blood Negative Urine Nitrite Negative Urine Bilirubin Negative Urine Urobilinogen Negative Ur Leukocyte Esterase Trace Urine WBC (Auto) 3 Urine RBC (Auto) 1 Urine Bacteria Many Urine Mucus Rare Blood Type A POSITIVE Antibody Screen Negative 01/04/18 06:20 WBC RBC Hgb Hct MCV MCH MCHC RDW Plt Count MPV Neutrophils % Lymphocytes % Monocytes % Eosinophils % Basophils % PT with INR INR Sodium 139 Potassium 3.6 Chloride 106 Carbon Dioxide 20 L Anion Gap 13 BUN 12 Creatinine 0.5 L Creat Clearance w eGFR Random Glucose 120 H Calcium 8.1 L Total Bilirubin AST ALT Alkaline Phosphatase Total Protein Albumin Urine Color Urine Appearance Urine pH Ur Specific [place] Urine Protein Urine Glucose (UA) Urine Ketones Urine Blood Urine Nitrite Urine Bilirubin Urine Urobilinogen Ur Leukocyte Esterase Urine WBC (Auto) Urine RBC (Auto) Urine Bacteria Urine Mucus Blood Type Antibody Screen Current Medications Generic Name Dose Route Start Last Admin Trade Name Freq PRN Reason Stop Dose Admin Acetaminophen 650 mg 01/04/18 02:27 Tylenol - PO Q4H PRN PAIN Sodium Chloride 1,000 mls @ 125 mls/hr 01/04/18 00:45 01/04/18 10:34 Normal Saline - IV 125 mls/hr ASDIR DENISA Administration ASSESSMENT AND PLAN: This is an 87 year old woman with a history of dementia, HTN, hyperlipidemia, osteoporosis who presented to the ED with left hip and left knee pain after a fall. 1. Intertrochanteric left femur fracture - Plan for repair tomorrow - Hold aspirin 2. Dementia 3. HTN - Continue Lisinopril 4. Hyperlipidemia - Continue Zocor
[2018-01-04] MEDS ORDERED: ATORVASTATIN CA 10 MG TABLET (FP) PO SCH (22:00)
[2018-01-04] MEDS ORDERED: morphine SULFATE 4 MG/ML VIAL IVPUSH PRN (23:22)
[2018-01-05] MEDS: SODIUM CHLORIDE 1,000 ML IV SCH (01:24)
--- NOTE | 2018-01-05 07:01 | PN ---
Physical Exam: SUBJECTIVE: Patient seen and examined - Pt agitated overnight, removing clothes/bedsheets, intermittently confused. Morphine given for pain control. Pt NPO for gamma nail procedure this AM. - Oriented only to name; pt removed araiza overnight, voiding freely in diaper; No f/c/n/v/d, no sob, cough, CP, abdominal pain; pt endorse mild pain in L hip; - Pt PCP contacted yesterday, denied any significant cardiac hx or adverse reaction to anesthesia; pt is moderate risk for this moderate risk, urgent surgery; will go to OR today w/ Dr. Veda harrison this AM 3.3, repleted PO OBJECTIVE: Vital Signs Intake & Output 01/02/18 01/03/18 01/04/18 01/05/18 23:59 23:59 23:59 23:59 Intake Total 1625 Output Total 818 Balance 807 Weight 45.359 kg 45.359 kg Period Temp Pulse Resp BP Sys/Pulido Pulse Ox Last 24 Hr 98.0 F-98.2 F 105-108 16-20 139-157/81-94 98 GENERAL: Elderly woman, NAD, A&Ox1, laying in bed HEAD: Normal with no signs of trauma. EYES: PERRL, extraocular movements intact, sclera anicteric, conjunctiva clear. No ptosis. ENT: Ears normal, nares patent, oropharynx clear without exudates, moist mucous membranes. NECK: Trachea midline, full range of motion, supple. LUNGS: Breath sounds equal, clear to auscultation bilaterally, no wheezes, no crackles, no accessory muscle use. HEART: 2/6 systolic ejection murmur at RUSB. Regular rate and rhythm, S1, S2 without murmur, rub or gallop. ABDOMEN: Soft, nontender, nondistended, normoactive bowel sounds, no guarding, no rebound, no hepatosplenomegaly, no masses. EXTREMITIES: L leg externally rotated. 2+ pulses, warm, well-perfused, no edema. Extremity exam unchange -> 5/5 strength in UEs, 2+ radial pulses. 5/5 strength in RLE, 5/5 strength distally in L distal LE, decreased ROM at hip due to pain. No sensory deficits in any extremity. No gross deformity, ecchymoses or crepitus in L hip. Minimal pain to palpation at L hip. NEUROLOGICAL: Cranial nerves II through XII grossly intact. Normal speech, gait not observed. 2+ DP, PT pulses BL. PSYCH: Normal mood, normal affect. SKIN: Warm, dry, normal turgor, no rashes or lesions noted Laboratory Results - last 24 hr CBC, BMP 01/05/18 06:30 01/05/18 06:30 01/04/18 06:20 01/04/18 06:20 01/04/18 01/04/18 06:20 06:20 WBC 10.2 H RBC 3.94 Hgb 12.2 Hct 35.7 MCV 90.6 MCH 31.1 MCHC 34.3 RDW 15.3 Plt Count 263 MPV 7.8 Sodium 139 Potassium 3.6 Chloride 106 Carbon Dioxide 20 L Anion Gap 13 BUN 12 Creatinine 0.5 L Random Glucose 120 H Calcium 8.1 L Active Medications Generic Name Dose Route Start Last Admin Trade Name Freq PRN Reason Stop Dose Admin Acetaminophen 650 mg 01/04/18 02:27 Tylenol - PO Q4H PRN PAIN LEVEL 1-5 Atorvastatin Calcium 10 mg 01/04/18 22:00 01/04/18 22:53 Lipitor - PO 10 mg HS DENISA Administration Sodium Chloride 1,000 mls @ 125 mls/hr 01/04/18 00:45 01/05/18 01:24 Normal Saline - IV 125 mls/hr ASDIR DENISA Administration Lisinopril 2.5 mg 01/05/18 10:00 Prinivil PO DAILY DENISA Morphine Sulfate 4 mg 01/04/18 23:22 01/05/18 01:23 Morphine Sulfate IVPUSH 4 mg Q4H PRN Administration PAIN LEVEL 6-10 no micro pelvic XR 01/04 - Impression. Acute intertrochanteric fracture of the left hip. Normal relationship of the femoral head to the acetabulum. Head CT 01/04 - Impression. No evidence of acute intracranial hemorrhage, edema, midline shift, mass effect, or skull fracture. No CT evidence of acute territorial ischemic changes. BL Knee XR 01/04 -External rotational displacement of L femur relative to acetabulum. No other fx's noted. ASSESSMENT/PLAN: 87 year old female with a hx of dementia, HLD, osteoporosis, admitted to the hospital s/p unwitnessed fall, now w/ L intertrochanteric fx, plan for Gamma Nail today with Dr. Wiley. Pt agitated, confused overnight; likely due to dementia. Pulled araiza out, now voiding in diaper. #L Hip Fracture/mechanical fall - -Ortho consulted, plan for Gamma Nail today -pain control w/ tylenol, morphine for breakthrough pain -NPO -CT head negative -IVFs -Bedrest -PT - Hold home ASA - O2 support prn - post-op care per surgical team recs #Dementia - agitated, confused overnight - trend MS #Asymptomatic Bacteriuria - stable -no need for tx -araiza pulled by pt overnight; voiding in diaper #Hyperlipidemia- chronic -Lipitor 10mg #FEN: -1/2NS, 83cc/hr -Daily lytes -NPO, restart regular diet after midnight #Prophylaxis: - Will restart heparin after surgery #Disposition: M/S Plan discussed with attending, Dr. Jovani Archibald, PGY1 Visit type - Emergency Visit Emergency Visit: Yes ED Registration Date: 01/04/18 Care time: The patient presented to the Emergency Department on the above date and was hospitalized for further evaluation of their emergent condition. - New Patient This patient is new to me today: No - Critical Care Critical Care patient: No
[2018-01-05 08:09] LABS: BASO % 0.2 % (0-2.0); HEMATOCRIT 34.5 % (32.4-45.2); HEMOGLOBIN 11.7 GM/dL (10.7-15.3); LYMPH % 17.3 % (8-40); MCH 30.7 pg (25.7-33.7); MCHC 33.8 g/dl (32.0-36.0); MEAN CELL VOLUME 90.8 fl (80-96); MEAN PLT VOLUME 7.5 fl (7.5-11.1); MONO % 9.6 % (3.8-10.2); NEUT % 72.9 % (42.8-82.8); PLATELET COUNT 227 K/MM3 (134-434); RDW 15.1 % (11.6-15.6); WHITE BLOOD COUNT 10.4 K/mm3 (4.0-10.0)
[2018-01-05 08:21] LABS: INR 1.08 (0.82-1.09); PROTHROMBIN TIME (PATIENT) 12.2 SEC (9.98-11.88)
[2018-01-05 08:33] LABS: ANION GAP 11 (8-16); BLOOD UREA NITROGEN 8 mg/dL (7-18); CALCIUM 7.3 mg/dL (8.5-10.1); CHLORIDE 106 mmol/L (98-107); CO2 21 mmol/L (21-32); GLUCOSE,RANDOM 124 mg/dL (74-106); POTASSIUM 3.3 mmol/L (3.5-5.1); SODIUM 138 mmol/L (136-145)
[2018-01-05 08:36] LABS: ALK PHOS 71 U/L (45-117); BILIRUBIN,TOTAL 1.3 mg/dL (0.2-1.0); CREATININE 0.5 mg/dL (0.55-1.02); SGOT/AST 25 U/L (15-37); SGPT/ALT 18 U/L (12-78)
[2018-01-05] MEDS ORDERED: SODIUM CHLORIDE 1,000 ML IV SCH (08:39)
[2018-01-05] MEDS ORDERED: POTASSIUM CHLORIDE TABS 20 MEQ TABLET.ER (FP) PO ONE (09:14)
[2018-01-05] MEDS ORDERED: LISINOPRIL 5 MG TABLET (FP) PO SCH (10:00)
--- NOTE | 2018-01-05 13:06 | PN ---
Teaching Attending Note Name of Resident: Joselo Archibald ATTENDING PHYSICIAN STATEMENT I saw and evaluated the patient. I reviewed the resident's note and discussed the case with the resident. I agree with the resident's findings and plan as documented. SUBJECTIVE: Patient is confused. She denies pain. OBJECTIVE: Vital Signs Period Temp Pulse Resp BP Sys/Pulido Pulse Ox Last 24 Hr 97.6 F-98.2 F 90-108 16-20 136-157/78-94 99 HEART: S1S2, RRR LUNGS: Clear ABDOMEN: Soft, non-tender, non-distended, normal BS EXTREMITIES: No edema. Left leg externally rotated Laboratory Results - last 24 hr 01/05/18 01/05/18 01/05/18 06:30 06:30 06:30 WBC 10.4 H RBC 3.80 Hgb 11.7 Hct 34.5 MCV 90.8 MCH 30.7 MCHC 33.8 RDW 15.1 Plt Count 227 MPV 7.5 Neutrophils % 72.9 D Lymphocytes % 17.3 D Monocytes % 9.6 Eosinophils % 0.0 D Basophils % 0.2 PT with INR 12.20 H INR 1.08 Sodium 138 Potassium 3.3 L Chloride 106 Carbon Dioxide 21 Anion Gap 11 BUN 8 Creatinine 0.5 L Creat Clearance w eGFR > 60 Random Glucose 124 H Calcium 7.3 L Total Bilirubin 1.3 H D AST 25 ALT 18 Alkaline Phosphatase 71 Total Protein 6.0 L Albumin 3.0 L Current Medications Generic Name Dose Route Start Last Admin Trade Name Freq PRN Reason Stop Dose Admin Acetaminophen 650 mg 01/04/18 02:27 Tylenol - PO Q4H PRN PAIN LEVEL 1-5 Atorvastatin Calcium 10 mg 01/04/18 22:00 01/04/18 22:53 Lipitor - PO 10 mg HS DENISA Administration Sodium Chloride 1,000 mls @ 42 mls/hr 01/05/18 08:39 01/05/18 09:30 Normal Saline - IV 42 mls/hr ASDIR DENISA Administration Lisinopril 2.5 mg 01/05/18 10:00 01/05/18 10:54 Prinivil PO 2.5 mg DAILY DENISA Administration Morphine Sulfate 4 mg 01/04/18 23:22 01/05/18 01:23 Morphine Sulfate IVPUSH 4 mg Q4H PRN Administration PAIN LEVEL 6-10 ASSESSMENT AND PLAN: This is an 87 year old woman with a history of dementia, HTN, hyperlipidemia, osteoporosis who presented to the ED with left hip and left knee pain after a fall. 1. Intertrochanteric left femur fracture - Plan for repair today - Aspirin held 2. Dementia 3. HTN - Continue Lisinopril 4. Hyperlipidemia - Continue Zocor
[2018-01-05] MEDS ORDERED: BUPIVACAINE HCL/PF 0.5% (5MG/ML) 10 ML VIAL ONE (14:41)
[2018-01-05] MEDS ORDERED: PROPOFOL 20 ML ONE ×2 (14:50)
[2018-01-05] MEDS ORDERED: ceFAZolin SODIUM 1 GM VIAL ONE ×2 (15:11→17:12)
[2018-01-05] MEDS ORDERED: ceFAZolin SODIUM 1 GM VIAL IVPB ONE (15:12)
[2018-01-05] MEDS ORDERED: ONDANSETRON 4 MG/2 ML VIAL IVPUSH PRN (15:58)
[2018-01-05] MEDS ORDERED: LACTATED RINGERS SOLUTION 1,000 ML IV SCH (16:00)
[2018-01-05] MEDS ORDERED: ACETAMINOPHEN 325 MG TABLET (FP) PO PRN (16:22)
--- NOTE | 2018-01-05 17:08 | OP ---
DATE OF OPERATION: 01/05/2018 PREOPERATIVE DIAGNOSIS: Left basicervical femoral neck fracture. POSTOPERATIVE DIAGNOSIS: Left basicervical femoral neck fracture. PROCEDURE PERFORMED: Operative fixation of left basicervical femoral neck fracture with intramedullary device (Gi Gamma Nail 125 degree x 180 mm x 10 mm, 85-mm lag screw, 32.5-mm distal locking screw). SURGEON: Marcos Wiley MD ANESTHESIA: Spinal. INDICATION: The patient is an 87-year-old female who sustained a fall and a displaced unstable left proximal femur fracture. She is a household ambulator. She is indicated for operative fixation. Risks, benefits, and alternatives of the surgery were discussed in detail with the family, and informed consent was obtained. DESCRIPTION OF PROCEDURE: The patient was brought into the operating room via stretcher, and spinal anesthesia was administered by the anesthesiologist. The patient was then transferred onto the fracture table. Bony prominences were well padded. The left lower extremity was placed in traction and turned rotation on the right lower extremity in flexion and external rotation. Fluoroscopic C-arm showed excellent reduction in both the AP and lateral planes. The left lower extremity was then prepped and draped in the usual sterile fashion. A timeout was performed. An incision was made in line with the proximal femur just proximal to the tip of the greater trochanter. A guidewire was then inserted under fluoroscopy guidance. The entry reamer was then passed over the guidewire, and was then passed into the femoral shaft. Once we proceeded to appropriately level, a guide for the lag screw was then inserted through a stab wound in the thigh. The guidewire was inserted to the center-center position. A cannulated drill was then passed followed by the insertion of an 85-mm lag screw. The set screw was then inserted and tightened all the way ensuring no motion of the lag screw. It was then backed off a quarter turn. The guide for the distal locking screw was then inserted through the jig through a stab wound in the thigh, and the drill was then inserted. A 32.5-mm distal locking screw was then placed. AP and lateral x-rays showed excellent position of the all the implants and excellent reduction. The wounds were then copiously irrigated. The deep fascia was closed with number 1 Vicryl suture. The deep dermal tissue was approximated with 2-0 Vicryl suture. The skin as closed with conor. Sterile dressing was applied. The patient tolerated the procedure well without complications. Donavon RANGEL/[id number]
[2018-01-05] MEDS: CEFAZOLIN 1 GM/D5W 1 GM/50 ML BAG IVPB SCH (17:19)
[2018-01-05] MEDS: SODIUM CHLORIDE 0.45% 1,000 ML IV SCH (17:19)
[2018-01-05] MEDS: morphine SULFATE 4 MG/ML VIAL IVPUSH PRN (20:53)
[2018-01-05] MEDS: DOCUSATE SODIUM 100 MG CAPSULE (FP) PO SCH (21:10)
[2018-01-05] MEDS: ATORVASTATIN CA 10 MG TABLET (FP) PO SCH (21:10)
[2018-01-05 21:26] LABS: ANION GAP 11 (8-16); BLOOD UREA NITROGEN 7 mg/dL (7-18); CALCIUM 7.2 mg/dL (8.5-10.1); CHLORIDE 107 mmol/L (98-107); CO2 20 mmol/L (21-32); CREATININE 0.4 mg/dL (0.55-1.02); GLUCOSE,RANDOM 117 mg/dL (74-106); POTASSIUM 3.6 mmol/L (3.5-5.1); SODIUM 138 mmol/L (136-145)
[2018-01-06] MEDS: CEFAZOLIN 1 GM/D5W 1 GM/50 ML BAG IVPB SCH (01:17)
[2018-01-06] MEDS: morphine SULFATE 4 MG/ML VIAL IVPUSH PRN ×2 (01:58→10:29)
[2018-01-06] MEDS: SODIUM CHLORIDE 0.45% 1,000 ML IV SCH (04:42)
--- NOTE | 2018-01-06 06:39 | PN ---
Physical Exam: SUBJECTIVE: Patient seen and examined - no major events. Alert and confused per nursing. No fever, hemo stable; mild hypotension to 90s sys; copious urination, voiding freely - Pt not cooperating w/ staff; refusing PO medications; Telling staff to leave room when being examined; appears slightly more delirious than admission, neuropsych consulted; OBJECTIVE: Vital Signs Intake & Output 01/03/18 01/04/18 01/05/18 01/06/18 23:59 23:59 23:59 23:59 Intake Total 1625 1325 Output Total 818 0 Balance 807 1325 Weight 45.359 kg 45.359 kg 45.359 kg Period Temp Pulse Resp BP Sys/Pulido Pulse Ox Last 24 Hr 97.5 F-98.4 F 89-112 16-20 97-151/45-92 95-99 GGENERAL: Elderly woman, NAD, A&Ox1, laying in bed HEAD: Normal with no signs of trauma. LUNGS: Breath sounds equal, clear to auscultation bilaterally, no wheezes, no crackles, no accessory muscle use. HEART: 2/6 systolic ejection murmur at RUSB. Regular rate and rhythm, S1, S2 without murmur, rub or gallop. EXTREMITIES: Incisions c/d/i/. mild TTP at L lateral hip. refused further exam NEUROLOGICAL: Cranial nerves II through XII grossly intact. 2+ DP, PT pulses BL. PSYCH: Uncooperative. Tangential Pt refused remainder of exam Laboratory Results - last 24 hr CBC, BMP 01/06/18 06:30 01/06/18 06:30 01/05/18 06:30 01/05/18 19:50 01/05/18 01/05/18 01/05/18 06:30 06:30 06:30 WBC 10.4 H RBC 3.80 Hgb 11.7 Hct 34.5 MCV 90.8 MCH 30.7 MCHC 33.8 RDW 15.1 Plt Count 227 MPV 7.5 Neutrophils % 72.9 D Lymphocytes % 17.3 D Monocytes % 9.6 Eosinophils % 0.0 D Basophils % 0.2 PT with INR 12.20 H INR 1.08 Sodium 138 Potassium 3.3 L Chloride 106 Carbon Dioxide 21 Anion Gap 11 BUN 8 Creatinine 0.5 L Creat Clearance w eGFR > 60 Random Glucose 124 H Calcium 7.3 L Total Bilirubin 1.3 H D AST 25 ALT 18 Alkaline Phosphatase 71 Total Protein 6.0 L Albumin 3.0 L 01/05/18 19:50 WBC RBC Hgb Hct MCV MCH MCHC RDW Plt Count MPV Neutrophils % Lymphocytes % Monocytes % Eosinophils % Basophils % PT with INR INR Sodium 138 Potassium 3.6 Chloride 107 Carbon Dioxide 20 L Anion Gap 11 BUN 7 Creatinine 0.4 L Creat Clearance w eGFR Random Glucose 117 H Calcium 7.2 L Total Bilirubin AST ALT Alkaline Phosphatase Total Protein Albumin Active Medications Generic Name Dose Route Start Last Admin Trade Name Freq PRN Reason Stop Dose Admin Acetaminophen 650 mg 01/05/18 16:22 Tylenol - PO Q4H PRN PAIN LEVEL 1-5 Atorvastatin Calcium 10 mg 01/05/18 22:00 01/05/18 21:10 Lipitor - PO 10 mg HS DENISA Administration Docusate Sodium 100 mg 01/05/18 22:00 01/05/18 21:10 Colace - PO 100 mg BID DENISA Administration Enoxaparin Sodium 40 mg 01/06/18 10:00 Lovenox - SQ DAILY [facility] Fentanyl 25 mcg 01/05/18 15:58 Sublimaze Injection - IVPUSH [id number] PRN PAIN-PACU ORDER X 4 DOSES ONLY Sodium Chloride 1,000 mls @ 83 mls/hr 01/05/18 16:00 01/06/18 04:42 1/2 Normal Saline IV 83 mls/hr ASDIR DENISA Administration Lisinopril 2.5 mg 01/06/18 10:00 Prinivil PO DAILY [facility] Morphine Sulfate 4 mg 01/05/18 16:22 01/06/18 01:58 Morphine Sulfate IVPUSH 4 mg Q4H PRN Administration PAIN LEVEL 6-10 Ondansetron HCl 4 mg 01/05/18 15:58 Zofran Injection IVPUSH Q6H PRN NAUSEA AND/OR VOMITING no micro pelvic XR 01/04 - Impression. Acute intertrochanteric fracture of the left hip. Normal relationship of the femoral head to the acetabulum. Head CT 01/04 - Impression. No evidence of acute intracranial hemorrhage, edema, midline shift, mass effect, or skull fracture. No CT evidence of acute territorial ischemic changes. BL Knee XR 01/04 -External rotational displacement of L femur relative to acetabulum. No other fx's noted. ASSESSMENT/PLAN: 87 year old female with a hx of dementia, HLD, osteoporosis, admitted to the hospital s/p unwitnessed fall, now w/ L intertrochanteric fx, plan for Gamma Nail today with Dr. Wiley. Pt remains agitated, confused overnight; likely due to dementia. voiding in diaper #L Hip Fracture/mechanical fall - -POD1 from gamma nail -pain control w/ tylenol, morphine for breakthrough pain -IVFs -Bedrest -PT - O2 support prn - post-op care per surgical team recs - OOB/WBAT per ortho recs #Dementia - still agitated, combative w/ staff - trend MS - CT head negative - Neuropsych consulted #Asymptomatic Bacteriuria - stable -no need for tx -voiding in diaper #Hyperlipidemia- chronic -Lipitor 10mg #FEN: -D51/2NS + 40 kcl, 100cc/hr -Daily lytes -Regular diet #Prophylaxis: - Lovenox #Disposition: M/S Plan discussed with attending, Dr. Jayant Archibald, PGY1 Visit type - Emergency Visit Emergency Visit: Yes ED Registration Date: 01/04/18 Care time: The patient presented to the Emergency Department on the above date and was hospitalized for further evaluation of their emergent condition. - New Patient This patient is new to me today: No - Critical Care Critical Care patient: No
[2018-01-06 08:03] LABS: HEMATOCRIT 31.4 % (32.4-45.2); HEMOGLOBIN 10.7 GM/dL (10.7-15.3); MCH 31.1 pg (25.7-33.7); MCHC 34.1 g/dl (32.0-36.0); MEAN CELL VOLUME 91.1 fl (80-96); MEAN PLT VOLUME 7.8 fl (7.5-11.1); PLATELET COUNT 211 K/MM3 (134-434); RBC 3.45 M/mm3 (3.60-5.2); RDW 15.3 % (11.6-15.6); WHITE BLOOD COUNT 8.9 K/mm3 (4.0-10.0)
[2018-01-06 08:21] LABS: INR 1.04 (0.82-1.09); PROTHROMBIN TIME (PATIENT) 11.8 SEC (9.98-11.88)
[2018-01-06 08:29] LABS: CHLORIDE 102 mmol/L (98-107); POTASSIUM 3.4 mmol/L (3.5-5.1); SODIUM 137 mmol/L (136-145)
[2018-01-06 08:45] LABS: ALBUMIN 2.6 g/dl (3.4-5.0); ALK PHOS 73 U/L (45-117); ANION GAP 12 (8-16); BILIRUBIN,TOTAL 1.3 mg/dL (0.2-1.0); BLOOD UREA NITROGEN 6 mg/dL (7-18); CALCIUM 7.5 mg/dL (8.5-10.1); CO2 23 mmol/L (21-32); CREATININE 0.4 mg/dL (0.55-1.02); GLUCOSE,RANDOM 109 mg/dL (74-106); PHOSPHOROUS 1.4 mg/dL (2.5-4.9); SGOT/AST 24 U/L (15-37); SGPT/ALT 19 U/L (12-78); TOT PROT 5.8 g/dl (6.4-8.2)
[2018-01-06] MEDS ORDERED: NAPH,MB-DB/K PH,MBDB POWDER PACKET PO ONE (09:01)
[2018-01-06] MEDS: LISINOPRIL 5 MG TABLET (FP) PO SCH (10:29)
[2018-01-06] MEDS: DOCUSATE SODIUM 100 MG CAPSULE (FP) PO SCH ×2 (10:29→22:28)
[2018-01-06] MEDS: ENOXAPARIN NA (PORCINE) 40 MG/0.4 ML DISP.SYRIN SQ SCH (10:30)
--- NOTE | 2018-01-06 10:36 | PN ---
Progress Note (short form) - Note Progress Note: POD #1 - s/p left hip gamma nail under spinal anesthesia. VSS. No acute changes. No apparent anesthetic complications noted. Continue current care.
[2018-01-06] MEDS ORDERED: POTASSIUM CHLORIDE 10 MEQ in SODIUM CHLORIDE 100 ML IVPB SCH (14:30)
[2018-01-06] MEDS ORDERED: D5-1/2NS+40 MEQ KCL - 40 MEQ/1,000 ML INFUS.BAG IV SCH (15:00)
[2018-01-06] MEDS ORDERED: hydrALAZINE HCL 20 MG/ML VIAL IM PRN (16:29)
--- NOTE | 2018-01-06 16:58 | PN ---
Progress Note (short form) - Note Progress Note: lying in bed, cooperative afeb h/h: 08/23 wounds c/d/i POD#1 s/p left hip dave nail -oob/PT/WBAT -DVT prophylaxix -dispo planning
--- NOTE | 2018-01-06 18:36 | CON.NEURO ---
Consult Consult Specialty:: NEUROLOGY FRANCIS BENSON - History of Present Illness History of Present Illness: 87 year old female with a history of HLD, osteoporosis, and dementia presented to the hospital s/p unwitnessed fall. Patient is a poor historian but is able to answer questions. She believes she tripped while getting up out of bed and hit her left side. Denies hitting her head, but is unsure. Patient reports not feeling lightheaded, not having any chest pain, palpitations, or shortness of breath. States that she is not in very much pain (3-4/10) and wishes to go home. Denies dysuria. ER course was notable for: (1) pelvis xray (+) for L femoral neck fracture (2) UA many bacteria (3) -Pt. has a hx. of dementia, refuses to give hx. and refuses exam. She reports cause of fall as"i just tripped". - Alcohol/Substance Use Hx Alcohol Use: No - Smoking History Smoking history: Never smoked Have you smoked in the past 12 months: No Aproximately how many cigarettes per day: 0 Home Medications - Allergies Allergies/Adverse Reactions: Allergies Allergy/AdvReac Type Severity Reaction Status Date / Time No Known Allergies Allergy Verified 01/03/18 23:32 - Home Medications Home Medications: Ambulatory Orders Cane 1 each MC DAILY #1 each 11/26/17 Aspirin [Ecotrin] 81 mg PO DAILY 01/04/18 Lisinopril [Zestril] 2.5 mg PO DAILY 01/04/18 Simvastatin [Zocor] 10 mg PO HS 01/04/18 Physical Exam-Neuro Vital Signs: Vital Signs Temperature 97.6 F 01/06/18 13:15 Pulse Rate 105 H 01/06/18 13:15 Respiratory Rate 22 01/06/18 13:15 Blood Pressure 140/83 01/06/18 13:15 O2 Sat by Pulse Oximetry (%) 98 01/05/18 17:35 Labs: CBC, BMP 01/06/18 06:30 01/06/18 06:30 INR, PTT INR 1.04 (0.82-1.09) 01/06/18 06:30 - Neuro Exam Level Of Consciousness: Yes: Alert, Oriented to Person, Oriented to Place Eyes: Yes: KAILA Dominant Hand: Left (Refuses testing but has impaired att/concentration, uncooperative) Cranial Nerves II-XII Intact: No (old right cent. facial droop) DTR's: 0 Left Achilles, 0 Right Achilles, 1+ Left Bicep, 1+ Right Bicep, 1+ Left Tricep, 1+ Right Tricep, 1+ Left Brachioradialis, 1+ Right Brachioradialis Babinski: Absent Response to light touch: Normal (refuses testing for other modalities) Motor Strength: 5/5: Left Arm, Right Arm (refuses further testing) Gait: Other (unable to stand 2ry to fx.) Imaging - Results Cat Scan: Report Reviewed (Reported without acute changes) Assessment/Plan s/p fall, orif, she has a dementia. Current mental status likely dementia with supervening delirium?? UTI. Would not treat for dementia until further improvement of gen.med.condition. Thank you, Jimmy Arcos MD
--- NOTE | 2018-01-06 18:37 | PN ---
Teaching Attending Note Name of Resident: Joselo Archibald ATTENDING PHYSICIAN STATEMENT I saw and evaluated the patient. I reviewed the resident's note and discussed the case with the resident. I agree with the resident's findings and plan as documented with exceptions mentioned below. SUBJECTIVE: Patient seen and examined. oriented to self, refuses exam, disoriented, able to recall that lives with her who is blind. OBJECTIVE: Vital Signs Period Temp Pulse Resp BP Sys/Pulido Pulse Ox Last 24 Hr 97.5 F-98.4 F 98-112 20-22 125-151/67-90 Intake & Output 01/03/18 01/04/18 01/05/18 01/06/18 23:59 23:59 23:59 23:59 Intake Total 1625 1325 Output Total 818 0 Balance 807 1325 Weight 100 lb 100 lb 100 lb General: confused, oriented to self only, in no acute distress extremities: no obvious swelling moves freely, refused further exam Home Medication List Medication Instructions Recorded Confirmed Type Aspirin [Ecotrin] 81 mg PO DAILY 01/04/18 01/04/18 History Lisinopril [Zestril] 2.5 mg PO DAILY 01/04/18 01/04/18 History Simvastatin [Zocor] 10 mg PO HS 01/04/18 01/04/18 History Active Medications Generic Name Dose Route Start Last Admin Trade Name Freq PRN Reason Stop Dose Admin Acetaminophen 650 mg 01/05/18 16:22 Tylenol - PO Q4H PRN PAIN LEVEL 1-5 Atorvastatin Calcium 10 mg 01/05/18 22:00 01/05/18 21:10 Lipitor - PO 10 mg HS DENISA Administration Docusate Sodium 100 mg 01/05/18 22:00 01/06/18 10:29 Colace - PO Not Given BID DENISA Enoxaparin Sodium 40 mg 01/06/18 10:00 01/06/18 10:30 Lovenox - SQ 40 mg DAILY DENISA Administration Fentanyl 25 mcg 01/05/18 15:58 Sublimaze Injection - IVPUSH [id number] PRN PAIN-PACU ORDER X 4 DOSES ONLY Hydralazine HCl 10 mg 01/06/18 16:29 Apresoline Injection - IM Q8H PRN HYPERTENSION Potassium Chloride 40 meq/ 1,020 mls @ 100 mls/hr 01/06/18 17:45 Dextrose/Sodium Chloride IVPB Q10H DENISA Lisinopril 2.5 mg 01/06/18 10:00 01/06/18 10:29 Prinivil PO Not Given DAILY DENISA Morphine Sulfate 4 mg 01/05/18 16:22 01/06/18 10:29 Morphine Sulfate IVPUSH 4 mg Q4H PRN Administration PAIN LEVEL 6-10 Ondansetron HCl 4 mg 01/05/18 15:58 Zofran Injection IVPUSH Q6H PRN NAUSEA AND/OR VOMITING Laboratory Results - last 24 hr 01/05/18 01/06/18 01/06/18 19:50 06:30 06:30 WBC 8.9 RBC 3.45 L Hgb 10.7 Hct 31.4 L MCV 91.1 MCH 31.1 MCHC 34.1 RDW 15.3 Plt Count 211 MPV 7.8 PT with INR 11.80 INR 1.04 Sodium 138 Potassium 3.6 Chloride 107 Carbon Dioxide 20 L Anion Gap 11 BUN 7 Creatinine 0.4 L Creat Clearance w eGFR Random Glucose 117 H Calcium 7.2 L Phosphorus Magnesium Total Bilirubin AST ALT Alkaline Phosphatase Total Protein Albumin 01/06/18 06:30 WBC RBC Hgb Hct MCV MCH MCHC RDW Plt Count MPV PT with INR INR Sodium 137 Potassium 3.4 L Chloride 102 Carbon Dioxide 23 Anion Gap 12 BUN 6 L Creatinine 0.4 L Creat Clearance w eGFR > 60 Random Glucose 109 H Calcium 7.5 L Phosphorus 1.4 L Magnesium 2.0 Total Bilirubin 1.3 H AST 24 ALT 19 Alkaline Phosphatase 73 Total Protein 5.8 L Albumin 2.6 L ASSESSMENT AND PLAN: 87 yof with PMHx of dementia, HTN, hyperlipidemia, osteoporosis admitted with fall, left hip intertrochanteric fracture -Left hip intertrochanteric fracture, s/p intramedullary nailing 01/05 -AMS, suspect delirium (CT head neg on admission) -Fall, CT head on admission neg -HTN -Hypokalemia -Hypophosphatemia -Asymptomatic bacteruria Plan: Orthopedic input noted, morphine prn, lovenox DVTPPx, PT eval, OOB. Patient pulled araiza, monitor for now. Neuropsych consult with Dr. Arcos. Frequent orientation to environment, OOB, pain control. DVTPPX Dispo anticipate SNF in 1-2 days if improves and more co-operative.
[2018-01-06] MEDS: POTASSIUM CHLORIDE IVPB SCH (18:39)
[2018-01-06] MEDS: [UNRECOGNIZED DRUG - OTHER] IVPB SCH (18:39)
[2018-01-06] MEDS: DEXTROSE IVPB SCH (18:39)
[2018-01-06 20:16] LABS: ANION GAP 7 (8-16); BLOOD UREA NITROGEN 6 mg/dL (7-18); CHLORIDE 102 mmol/L (98-107); CO2 25 mmol/L (21-32); GLUCOSE,RANDOM 118 mg/dL (74-106); POTASSIUM 3.2 mmol/L (3.5-5.1); SODIUM 134 mmol/L (136-145)
[2018-01-06 20:59] LABS: CALCIUM 6.9 mg/dL (8.5-10.1)
[2018-01-06 21:00] LABS: CREATININE 5.7 mg/dL (0.55-1.02)
[2018-01-06] MEDS ORDERED: PT OWN MED DRAWER 7, Y5N ONE (21:55)
[2018-01-06] MEDS: ATORVASTATIN CA 10 MG TABLET (FP) PO SCH (22:28)
[2018-01-06] MEDS ORDERED: CALCIUM (OYSTER SHELL) 500 MG TABLET (FP) PO ONE (22:30)
[2018-01-07] MEDS: morphine SULFATE 4 MG/ML VIAL IVPUSH PRN ×2 (06:52→18:39)
[2018-01-07] MEDS: [UNRECOGNIZED DRUG - OTHER] IVPB SCH ×2 (06:53→18:37)
[2018-01-07] MEDS: POTASSIUM CHLORIDE IVPB SCH ×2 (06:53→18:37)
[2018-01-07] MEDS: DEXTROSE IVPB SCH ×2 (06:53→18:37)
[2018-01-07 08:13] LABS: HEMATOCRIT 31.7 % (32.4-45.2); HEMOGLOBIN 10.7 GM/dL (10.7-15.3); MCH 30.8 pg (25.7-33.7); MCHC 33.7 g/dl (32.0-36.0); MEAN CELL VOLUME 91.3 fl (80-96); MEAN PLT VOLUME 7.9 fl (7.5-11.1); PLATELET COUNT 223 K/MM3 (134-434); RBC 3.47 M/mm3 (3.60-5.2); RDW 15.1 % (11.6-15.6); WHITE BLOOD COUNT 7.2 K/mm3 (4.0-10.0)
[2018-01-07 08:19] LABS: CHLORIDE 103 mmol/L (98-107); POTASSIUM 3.4 mmol/L (3.5-5.1); SODIUM 139 mmol/L (136-145)
[2018-01-07 08:38] LABS: ALBUMIN 2.4 g/dl (3.4-5.0); ALK PHOS 73 U/L (45-117); ANION GAP 12 (8-16); BILIRUBIN,TOTAL 1.3 mg/dL (0.2-1.0); BLOOD UREA NITROGEN 4 mg/dL (7-18); CALCIUM 7.9 mg/dL (8.5-10.1); CO2 24 mmol/L (21-32); CREATININE 0.3 mg/dL (0.55-1.02); GLUCOSE,RANDOM 111 mg/dL (74-106); MAGNESIUM 2.3 mg/dL (1.8-2.4); SGOT/AST 26 U/L (15-37); SGPT/ALT 15 U/L (12-78); TOT PROT 5.4 g/dl (6.4-8.2)
[2018-01-07] MEDS ORDERED: POTASSIUM PHOSPHATE 30 MM in DEXTROSE 5%-WATER - 500 ML IVPB ONE (09:48)
--- NOTE | 2018-01-07 09:55 | PN ---
Teaching Attending Note Name of Resident: Brittnee Carpenter ATTENDING PHYSICIAN STATEMENT I saw and evaluated the patient. I reviewed the resident's note and discussed the case with the resident. I agree with the resident's findings and plan as documented with exceptions mentioned below. SUBJECTIVE: Patient seen and examined. oriented to self, thinks is in the doctor's office, no pain or complaints, less agitated today. OBJECTIVE: Vital Signs Period Temp Pulse Resp BP Sys/Pulido Pulse Ox Last 24 Hr 97.6 F-98.2 F 100-105 20-22 133-140/50-83 Intake & Output 01/04/18 01/05/18 01/06/18 01/07/18 23:59 23:59 23:59 23:59 Intake Total 1625 1616 864 5803 Output Total 818 0 Balance 807 9501 678 8106 Weight 100 lb 100 lb General: lying in bed, less agitated, no acute distress Chest: decreased effort, no rales or wheezing abdomen:soft, NT, positive bowel sounds, ND extremities: no edema noted. Home Medication List Medication Instructions Recorded Confirmed Type Aspirin [Ecotrin] 81 mg PO DAILY 01/04/18 01/04/18 History Lisinopril [Zestril] 2.5 mg PO DAILY 01/04/18 01/04/18 History Simvastatin [Zocor] 10 mg PO HS 01/04/18 01/04/18 History Active Medications Generic Name Dose Route Start Last Admin Trade Name Freq PRN Reason Stop Dose Admin Acetaminophen 650 mg 01/05/18 16:22 Tylenol - PO Q4H PRN PAIN LEVEL 1-5 Atorvastatin Calcium 10 mg 01/05/18 22:00 01/06/18 22:28 Lipitor - PO 10 mg HS DENISA Administration Docusate Sodium 100 mg 01/05/18 22:00 01/06/18 22:28 Colace - PO 100 mg BID DENISA Administration Enoxaparin Sodium 40 mg 01/06/18 10:00 01/06/18 10:30 Lovenox - SQ 40 mg DAILY DENISA Administration Hydralazine HCl 10 mg 01/06/18 16:29 Apresoline Injection - IM Q8H PRN HYPERTENSION Potassium Chloride 40 meq/ 1,020 mls @ 100 mls/hr 01/06/18 17:45 01/07/18 06: 53 Dextrose/Sodium Chloride IVPB 100 mls/hr Q10H DENISA Administration Potassium Phosphate 30 mm/ 260 mls @ 62.5 mls/hr 01/07/18 09:48 Dextrose IVPB 01/07/18 13:57 ONCE ONE Ceftriaxone Sodium 1 gm/ 100 mls @ 200 mls/hr 01/07/18 10:00 Dextrose IVPB DAILY DENISA Lisinopril 2.5 mg 01/06/18 10:00 01/06/18 10:29 Prinivil PO Not Given DAILY DENISA Morphine Sulfate 4 mg 01/05/18 16:22 01/07/18 06:52 Morphine Sulfate IVPUSH 4 mg Q4H PRN Administration PAIN LEVEL 6-10 Ondansetron HCl 4 mg 01/05/18 15:58 Zofran Injection IVPUSH Q6H PRN NAUSEA AND/OR VOMITING Laboratory Results - last 24 hr 01/06/18 01/07/18 01/07/18 19:20 07:00 07:00 WBC 7.2 RBC 3.47 L Hgb 10.7 Hct 31.7 L MCV 91.3 MCH 30.8 MCHC 33.7 RDW 15.1 Plt Count 223 MPV 7.9 Sodium 134 L 139 Potassium 3.2 L 3.4 L Chloride 102 103 Carbon Dioxide 25 24 Anion Gap 7 L 12 BUN 6 L 4 L Creatinine 5.7 H 0.3 L Creat Clearance w eGFR > 60 Random Glucose 118 H 111 H Calcium 6.9 L* 7.9 L Phosphorus 1.0 L* Magnesium 2.3 Total Bilirubin 1.3 H AST 26 ALT 15 Alkaline Phosphatase 73 Total Protein 5.4 L Albumin 2.4 L ASSESSMENT AND PLAN: 87 yof with PMHx of dementia, HTN, hyperlipidemia, osteoporosis admitted with fall, left hip intertrochanteric fracture -Left hip intertrochanteric fracture, s/p intramedullary nailing 01/05 -AMS, suspect delirium (CT head neg on admission) +/- encephalopathy from uncomplicated UTI -Fall, CT head on admission neg -HTN -Hypokalemia -Hypophosphatemia Plan: Orthopedic input noted, morphine prn, lovenox DVTPPx, PT eval, OOB. Patient pulled araiza, monitor for now. Neuropsych consult appreciated. Patient with dementia, limited history. Will send urine cultures and start ceftriaxone. Kphos IV, monitor lytes closely. Frequent orientation to environment, OOB, pain control. DVTPPX Dispo anticipate SNF by Tuesday as improves if no new concerns.
[2018-01-07] MEDS ORDERED: DEXTROSE 5%-WATER - 50 ML IVPB ONE (10:31)
[2018-01-07] MEDS ORDERED: cefTRIAXone SODIUM 1 GM VIAL ONE (10:31)
[2018-01-07] MEDS ORDERED: PT OWN MED DRAWER 7, Y5N ONE (10:31)
[2018-01-07] MEDS: ENOXAPARIN NA (PORCINE) 40 MG/0.4 ML DISP.SYRIN SQ SCH (10:34)
[2018-01-07] MEDS: LISINOPRIL 5 MG TABLET (FP) PO SCH (10:34)
[2018-01-07] MEDS: DOCUSATE SODIUM 100 MG CAPSULE (FP) PO SCH ×2 (10:34→21:36)
--- NOTE | 2018-01-07 12:28 | PN ---
Progress Note, Physician History of Present Illness: Feeling well. Was able to sit up in bed. Pain minimal - Current Medication List Current Medications: Active Medications Acetaminophen (Tylenol -) 650 mg PO Q4H PRN PRN Reason: PAIN LEVEL 1-5 Atorvastatin Calcium (Lipitor -) 10 mg PO HS [facility] Last Admin: 01/06/18 22:28 Dose: 10 mg Docusate Sodium (Colace -) 100 mg PO BID [facility] Last Admin: 01/07/18 10:34 Dose: 100 mg Enoxaparin Sodium (Lovenox -) 40 mg SQ DAILY [facility] Last Admin: 01/07/18 10:34 Dose: 40 mg Hydralazine HCl (Apresoline Injection -) 10 mg IM Q8H PRN PRN Reason: HYPERTENSION Potassium Chloride 40 meq/ (Dextrose/Sodium Chloride) 1,020 mls @ 100 mls/hr IVPB Q10H [facility] Last Admin: 01/07/18 06:53 Dose: 100 mls/hr Potassium Phosphate 30 mm/ (Dextrose) 510 mls @ 62.5 mls/hr IVPB ONCE ONE Stop: 01/07/18 17:57 Ceftriaxone Sodium 1 gm/ (Dextrose) 50 mls @ 100 mls/hr IVPB DAILY [facility] Lisinopril (Prinivil) 2.5 mg PO DAILY [facility] Last Admin: 01/07/18 10:34 Dose: 2.5 mg Morphine Sulfate (Morphine Sulfate) 4 mg IVPUSH Q4H PRN PRN Reason: PAIN LEVEL 6-10 Last Admin: 01/07/18 06:52 Dose: 4 mg Ondansetron HCl (Zofran Injection) 4 mg IVPUSH Q6H PRN PRN Reason: NAUSEA AND/OR VOMITING - Objective Vital Signs: Vital Signs Temperature 98.2 F 01/07/18 07:21 Pulse Rate 100 H 01/06/18 20:44 Respiratory Rate 20 01/06/18 20:44 Blood Pressure 135/50 01/06/18 20:44 O2 Sat by Pulse Oximetry (%) 98 01/05/18 17:35 Constitutional: Yes: Well Nourished, No Distress, Calm Musculoskeletal: Yes: Other (Dressing was off. A new dressing was placed today. Wounds healing nicely. No sign of infection. Compartments soft. NVID.) Labs: CBC, BMP 01/07/18 07:00 01/07/18 07:00 INR, PTT INR 1.04 (0.82-1.09) 01/06/18 06:30 Assessment/Plan #1 POD #2 s/p Left hip ORIF -PT WBAT -Pain control -DVT prophlaxis -Dispo planning
[2018-01-07] MEDS: CEFTRIAXONE 1 GM in DEXTROSE 5%-WATER - 50 ML IVPB SCH (12:30)
--- NOTE | 2018-01-07 17:07 | PN ---
Progress Note (short form) - Note Progress Note: Patient lying in bed, no complaints, no focal findings. Dementia, Fall, intertrochanteric fracture, possible UTI. Will f/u with you.
--- NOTE | 2018-01-07 18:40 | EKG ---
Test Reason : Blood Pressure : / mmHG Vent. Rate : 116 BPM Atrial Rate : 136 BPM P-R Int : 000 ms QRS Dur : 086 ms QT Int : 372 ms P-R-T Axes : 074 033 -77 degrees QTc Int : 517 ms SINUS TACHYCARDIA WITH PREMATURE SUPRAVENTRICULAR COMPLEXES AND WITH OCCASIONAL PREMATURE VENTRICULAR COMPLEXES ABNORMAL ECG WHEN COMPARED WITH ECG OF 04-JAN-2018 01:08, PREMATURE SUPRAVENTRICULAR COMPLEXES ARE NOW PRESENT VENT. RATE HAS INCREASED BY 38 BPM T WAVE INVERSION LESS EVIDENT IN ANTERIOR LEADS Confirmed by LIZ MANZANARES MD ([id number]) on 01/07/2018 6:39:50 PM Referred By: Amber KLEIN Confirmed By:LIZ MANZANARES MD
[2018-01-07] MEDS: ATORVASTATIN CA 10 MG TABLET (FP) PO SCH (21:36)
[2018-01-08] MEDS: [UNRECOGNIZED DRUG - OTHER] IVPB SCH ×2 (01:07→21:47)
[2018-01-08] MEDS: POTASSIUM CHLORIDE IVPB SCH ×2 (01:07→21:47)
[2018-01-08] MEDS: DEXTROSE IVPB SCH ×2 (01:07→21:47)
[2018-01-08 07:19] LABS: BASO % 0.3 % (0-2.0); EOS % 0.4 % (0-4.5); HEMATOCRIT 30.7 % (32.4-45.2); HEMOGLOBIN 10.6 GM/dL (10.7-15.3); LYMPH % 18.9 % (8-40); MCH 31.2 pg (25.7-33.7); MCHC 34.5 g/dl (32.0-36.0); MEAN CELL VOLUME 90.4 fl (80-96); MEAN PLT VOLUME 8.1 fl (7.5-11.1); MONO % 7.7 % (3.8-10.2); NEUT % 72.7 % (42.8-82.8); PLATELET COUNT 266 K/MM3 (134-434); RDW 15.2 % (11.6-15.6); WHITE BLOOD COUNT 8.5 K/mm3 (4.0-10.0)
[2018-01-08 08:01] LABS: CHLORIDE 98 mmol/L (98-107); POTASSIUM 3.9 mmol/L (3.5-5.1); SODIUM 133 mmol/L (136-145)
[2018-01-08 08:14] LABS: ANION GAP 11 (8-16); BLOOD UREA NITROGEN 4 mg/dL (7-18); CALCIUM 7.3 mg/dL (8.5-10.1); CO2 24 mmol/L (21-32); CREATININE 0.3 mg/dL (0.55-1.02); GLUCOSE,RANDOM 139 mg/dL (74-106); MAGNESIUM 1.9 mg/dL (1.8-2.4); PHOSPHOROUS 1.7 mg/dL (2.5-4.9)
--- NOTE | 2018-01-08 09:05 | PN ---
Teaching Attending Note Name of Resident: Anthony Saba SUBJECTIVE: patient seen and examined, having breakfast, awake, pleasant, markedly improved today, denies any pain, dyspnea or discomfort, Re-orientable. OBJECTIVE: Vital Signs Period Temp Pulse Resp BP Sys/Pulido Pulse Ox Last 24 Hr 97.3 F-99.2 F 84-110 16-20 122-165/59-85 98 Intake & Output 01/05/18 01/06/18 01/07/18 01/08/18 23:59 23:59 23:59 23:59 Intake Total 3334 959 6730 1000 Output Total 0 Balance 5959 904 6008 1000 Weight 100 lb general: sitting in bed having breakfast, no acute distress CVS:S1S2 regular Chest: decreased effort, no rales or wheezing abdomen:soft, NT, ND, positive bowel sounds extremities: no edema, Pos DP pulses neuro : AA, co-operative, oriented to self only but redirectable, power 4/5 generalized except LLE limitation by some pain, facial symmetry. Home Medication List Medication Instructions Recorded Confirmed Type Aspirin [Ecotrin] 81 mg PO DAILY 01/04/18 01/04/18 History Lisinopril [Zestril] 2.5 mg PO DAILY 01/04/18 01/04/18 History Simvastatin [Zocor] 10 mg PO HS 01/04/18 01/04/18 History Active Medications Generic Name Dose Route Start Last Admin Trade Name Freq PRN Reason Stop Dose Admin Acetaminophen 650 mg 01/05/18 16:22 Tylenol - PO Q4H PRN PAIN LEVEL 1-5 Atorvastatin Calcium 10 mg 01/05/18 22:00 01/07/18 21:36 Lipitor - PO 10 mg HS DENISA Administration Docusate Sodium 100 mg 01/05/18 22:00 01/07/18 21:36 Colace - PO 100 mg BID DENISA Administration Enoxaparin Sodium 40 mg 01/06/18 10:00 01/07/18 10:34 Lovenox - SQ 40 mg DAILY DENISA Administration Hydralazine HCl 10 mg 01/06/18 16:29 Apresoline Injection - IM Q8H PRN HYPERTENSION Potassium Chloride 40 meq/ 1,020 mls @ 100 mls/hr 01/06/18 17:45 01/08/18 01: 07 Dextrose/Sodium Chloride IVPB Not Given Q10H DENISA Ceftriaxone Sodium 1 gm/ 50 mls @ 100 mls/hr 01/07/18 10:00 01/07/18 12:30 Dextrose IVPB 100 mls/hr DAILY DENISA Administration Sodium Phosphate 15 mm/ 255 mls @ 62.5 mls/hr 01/08/18 08:59 Dextrose IVPB 01/08/18 13:03 ONCE ONE Lisinopril 2.5 mg 01/06/18 10:00 01/07/18 10:34 Prinivil PO 2.5 mg DAILY DENISA Administration Morphine Sulfate 4 mg 01/05/18 16:22 01/07/18 18:39 Morphine Sulfate IVPUSH 4 mg Q4H PRN Administration PAIN LEVEL 6-10 Ondansetron HCl 4 mg 01/05/18 15:58 Zofran Injection IVPUSH Q6H PRN NAUSEA AND/OR VOMITING Laboratory Results - last 24 hr 01/07/18 01/08/18 01/08/18 07:00 06:08 06:08 WBC 8.5 RBC 3.40 L Hgb 10.6 L Hct 30.7 L MCV 90.4 MCH 31.2 MCHC 34.5 RDW 15.2 Plt Count 266 MPV 8.1 Neutrophils % 72.7 Lymphocytes % 18.9 Monocytes % 7.7 Eosinophils % 0.4 D Basophils % 0.3 Sodium 139 133 L Potassium 3.4 L 3.9 Chloride 103 98 Carbon Dioxide 24 24 Anion Gap 12 11 BUN 4 L 4 L Creatinine 0.3 L 0.3 L Creat Clearance w eGFR > 60 Random Glucose 111 H 139 H Calcium 7.9 L 7.3 L Phosphorus 1.0 L* 1.7 L Magnesium 2.3 1.9 Total Bilirubin 1.3 H AST 26 ALT 15 Alkaline Phosphatase 73 Total Protein 5.4 L Albumin 2.4 L Microbiology 01/07/18 12:00 Urine - Urine - Catheterized Urine Culture - Final Contaminated: Please Repeat ASSESSMENT AND PLAN: 87 yof with PMHx of dementia, HTN, hyperlipidemia, osteoporosis admitted with fall, left hip intertrochanteric fracture -Left hip intertrochanteric fracture, s/p intramedullary nailing 01/05 -AMS, suspect delirium (CT head neg on admission) +/- encephalopathy from uncomplicated UTI -Fall, CT head on admission neg -HTN -Hypokalemia -Hypophosphatemia -Lower uncomplicated UTI Plan: Orthopedic input noted, morphine prn, lovenox DVTPPx, PT eval, OOB. Encourage OOB today as patient co-operative Patient pulled araiza, monitor for now. Ceftriaxone day 2, mental status markedly improved, will finish 3 day course, urine cultures noted. Neuropsych consult appreciated. Naphos IV, monitor lytes Frequent orientation to environment, OOB, pain control. DVTPPX Dispo anticipate SNF by Tuesday as improves if no new concerns. Plan discussed with Nursing.
[2018-01-08] MEDS ORDERED: cefTRIAXone SODIUM 1 GM VIAL ONE (09:48)
[2018-01-08] MEDS ORDERED: DEXTROSE 5%-WATER - 50 ML IVPB ONE (09:48)
[2018-01-08] MEDS: DOCUSATE SODIUM 100 MG CAPSULE (FP) PO SCH ×2 (09:50→21:49)
[2018-01-08] MEDS: CEFTRIAXONE 1 GM in DEXTROSE 5%-WATER - 50 ML IVPB SCH (09:50)
[2018-01-08] MEDS: LISINOPRIL 5 MG TABLET (FP) PO SCH (09:50)
[2018-01-08] MEDS: ENOXAPARIN NA (PORCINE) 40 MG/0.4 ML DISP.SYRIN SQ SCH (10:03)
[2018-01-08] MEDS ORDERED: SODIUM PHOSPHATE - 15 MM in DEXTROSE 5%-WATER - 250 ML IVPB ONE (11:00)
[2018-01-08] MEDS: morphine SULFATE 4 MG/ML VIAL IVPUSH PRN (11:48)
--- NOTE | 2018-01-08 17:16 | PN ---
Progress Note (short form) - Note Progress Note: Patient lying in bed, no complaints, no focal findings. Dementia, Fall, intertrochanteric fracture, possible UTI. Was napping, but earlier was noted to be quite lively. Will f/u with you.
[2018-01-08] MEDS: ATORVASTATIN CA 10 MG TABLET (FP) PO SCH (21:49)
--- NOTE | 2018-01-09 06:13 | PN ---
Physical Exam: SUBJECTIVE: Patient seen and examined by me this AM - No major overnight events. Remains confused overnight; Afebrile, hemostable, tachy to 120; - Pt with no complaints, did not cooperative with exam this AM; Denies any pain OBJECTIVE: Vital Signs Intake & Output 01/06/18 01/07/18 01/08/18 01/09/18 23:59 23:59 23:59 23:59 Intake Total 650 1750 2024 1000 Balance 650 1750 2024 1000 Period Temp Pulse Resp BP Sys/Pulido Pulse Ox Last 24 Hr 98.4 F-98.8 F 98-120 20-20 111-161/75-82 96-98 GGENERAL: Elderly woman, NAD, A&Ox1, laying in bed; somnolent HEAD: Normal with no signs of trauma. LUNGS: Breath sounds equal, clear to auscultation bilaterally, no wheezes, no crackles, no accessory muscle use. HEART: 2/6 systolic ejection murmur at RUSB. Regular rate and rhythm, S1, S2 without murmur, rub or gallop. EXTREMITIES: Incisions c/d/i/. Mild TTP. Ecchymoses on lateral dependent portion of L hip NEUROLOGICAL: Cranial nerves II through XII grossly intact. 2+ DP, PT pulses BL. PSYCH: Uncooperative. somnolent Laboratory Results - last 24 hr CBC, BMP CBC, BMP 01/09/18 05:35 01/09/18 05:35 01/08/18 06:08 01/08/18 06:08 01/08/18 01/08/18 06:08 06:08 WBC 8.5 RBC 3.40 L Hgb 10.6 L Hct 30.7 L MCV 90.4 MCH 31.2 MCHC 34.5 RDW 15.2 Plt Count 266 MPV 8.1 Neutrophils % 72.7 Lymphocytes % 18.9 Monocytes % 7.7 Eosinophils % 0.4 D Basophils % 0.3 Sodium 133 L Potassium 3.9 Chloride 98 Carbon Dioxide 24 Anion Gap 11 BUN 4 L Creatinine 0.3 L Random Glucose 139 H Calcium 7.3 L Phosphorus 1.7 L Magnesium 1.9 Active Medications Generic Name Dose Route Start Last Admin Trade Name Freq PRN Reason Stop Dose Admin Acetaminophen 650 mg 01/05/18 16:22 Tylenol - PO Q4H PRN PAIN LEVEL 1-5 Atorvastatin Calcium 10 mg 01/05/18 22:00 01/08/18 21:49 Lipitor - PO 10 mg HS DENISA Administration Docusate Sodium 100 mg 01/05/18 22:00 01/08/18 21:49 Colace - PO 100 mg BID DENISA Administration Enoxaparin Sodium 40 mg 01/06/18 10:00 01/08/18 10:03 Lovenox - SQ 40 mg DAILY DENISA Administration Hydralazine HCl 10 mg 01/06/18 16:29 Apresoline Injection - IM Q8H PRN HYPERTENSION Potassium Chloride 40 meq/ 1,020 mls @ 100 mls/hr 01/06/18 17:45 01/08/18 21: 47 Dextrose/Sodium Chloride IVPB Not Given Q10H DENISA Ceftriaxone Sodium 1 gm/ 50 mls @ 100 mls/hr 01/07/18 10:00 01/08/18 09:50 Dextrose IVPB 100 mls/hr DAILY DENISA Administration Lisinopril 2.5 mg 01/06/18 10:00 01/08/18 09:50 Prinivil PO 2.5 mg DAILY DENISA Administration Ondansetron HCl 4 mg 01/05/18 15:58 Zofran Injection IVPUSH Q6H PRN NAUSEA AND/OR VOMITING Microbiology 01/07/18 12:00 Urine - Urine - Catheterized Urine Culture - Final Contaminated: Please Repeat pelvic XR 01/04 - Impression. Acute intertrochanteric fracture of the left hip. Normal relationship of the femoral head to the acetabulum. Head CT 01/04 - Impression. No evidence of acute intracranial hemorrhage, edema, midline shift, mass effect, or skull fracture. No CT evidence of acute territorial ischemic changes. BL Knee XR 01/04 -External rotational displacement of L femur relative to acetabulum. No other fx's noted. ASSESSMENT/PLAN: 87 year old female with a hx of dementia, HLD, osteoporosis, admitted to the hospital s/p unwitnessed fall, now w/ L intertrochanteric fx. POD4 Gamma Nail procedure, still disoriented, uncooperative; doing well otherwise #L Hip Fracture/mechanical fall - -POD4 from gamma nail -pain control w/ tylenol, morphine for breakthrough pain -IVFs -PT - zofran for N/V - O2 support prn - OOB/WBAT per ortho recs #Dementia - still agitated, combative w/ staff - trend MS - CT head negative - Neuropsych consulted #Asymptomatic Bacteriuria - No wbc, fever - Urine cx w/ contaminate - Day 3 of rocephin #Hyperlipidemia- chronic -Lipitor 10mg #Constipation - colace #FEN: -D51/2NS + 40 kcl, 100cc/hr -Daily lytes -Regular diet #Prophylaxis: - Lovenox #Disposition: M/S Plan discussed with attending, Dr. Jayant Archibald, PGY1 ASSESSMENT/PLAN:
[2018-01-09 07:26] LABS: CHLORIDE 96 mmol/L (98-107); POTASSIUM 3.7 mmol/L (3.5-5.1); SODIUM 133 mmol/L (136-145)
[2018-01-09 07:50] LABS: ANION GAP 14 (8-16); BLOOD UREA NITROGEN 4 mg/dL (7-18); CALCIUM 7.9 mg/dL (8.5-10.1); CO2 23 mmol/L (21-32); CREATININE 0.3 mg/dL (0.55-1.02); GLUCOSE,RANDOM 115 mg/dL (74-106); MAGNESIUM 2.2 mg/dL (1.8-2.4); PHOSPHOROUS 2.2 mg/dL (2.5-4.9)
[2018-01-09 08:09] LABS: HEMATOCRIT 32.8 % (32.4-45.2); HEMOGLOBIN 11.1 GM/dL (10.7-15.3); MCH 30.8 pg (25.7-33.7); MCHC 33.9 g/dl (32.0-36.0); MEAN PLT VOLUME 8.2 fl (7.5-11.1); PLATELET COUNT 302 K/MM3 (134-434)
--- NOTE | 2018-01-09 08:12 | PN ---
Progress Note (short form) - Note Progress Note: She feels well. Resting in bed. Dressing CDI, wounds healing nicely. No sign of infection Diffuse ecchymosis of L hip Compartments soft Calf nontender, negative cherry's sign NVID POD #4 s/p L hip ORIF -PT WBAT -Pain control -DVT prophaxis -Discharge planning
[2018-01-09] MEDS: [UNRECOGNIZED DRUG - OTHER] IVPB SCH ×2 (08:31→09:34)
[2018-01-09] MEDS: DEXTROSE IVPB SCH ×2 (08:31→09:34)
[2018-01-09] MEDS: POTASSIUM CHLORIDE IVPB SCH ×2 (08:31→09:34)
--- NOTE | 2018-01-09 08:45 | PN ---
Progress Note (short form) - Note Progress Note: Patient lying in bed, no complaints, no focal findings. Dementia, Fall, intertrochanteric fracture, possible UTI. She is quite alert, pleasant, and conversant, though oriented only to self. Neurologically stable. We'll sign off. Please reconsult if further questions arise.
--- NOTE | 2018-01-09 08:52 | PN ---
Teaching Attending Note Name of Resident: Joselo Archibald ATTENDING PHYSICIAN STATEMENT I saw and evaluated the patient. I reviewed the resident's note and discussed the case with the resident. I agree with the resident's findings and plan as documented with exceptions below. SUBJECTIVE: Patient seen and examined. pleasant, working with PT. OBJECTIVE: Vital Signs Period Temp Pulse Resp BP Sys/Pulido Pulse Ox Last 24 Hr 98.2 F-98.8 F 98-120 20-20 111-152/76-82 96-98 Intake & Output 01/06/18 01/07/18 01/08/18 01/09/18 23:59 23:59 23:59 23:59 Intake Total 650 1750 2024 1000 Balance 650 1750 2024 1000 General: sitting in bed, working with PT Extremities; no edema or erythema noted. Home Medication List Medication Instructions Recorded Confirmed Type Aspirin [Ecotrin] 81 mg PO DAILY 01/04/18 01/04/18 History Lisinopril [Zestril] 2.5 mg PO DAILY 01/04/18 01/04/18 History Simvastatin [Zocor] 10 mg PO HS 01/04/18 01/04/18 History Active Medications Generic Name Dose Route Start Last Admin Trade Name Freq PRN Reason Stop Dose Admin Acetaminophen 650 mg 01/05/18 16:22 Tylenol - PO Q4H PRN PAIN LEVEL 1-5 Atorvastatin Calcium 10 mg 01/05/18 22:00 01/08/18 21:49 Lipitor - PO 10 mg HS DENISA Administration Docusate Sodium 100 mg 01/05/18 22:00 01/08/18 21:49 Colace - PO 100 mg BID DENISA Administration Enoxaparin Sodium 40 mg 01/06/18 10:00 01/08/18 10:03 Lovenox - SQ 40 mg DAILY DENISA Administration Hydralazine HCl 10 mg 01/06/18 16:29 Apresoline Injection - IM Q8H PRN HYPERTENSION Potassium Chloride 40 meq/ 1,020 mls @ 100 mls/hr 01/06/18 17:45 01/09/18 08: 31 Dextrose/Sodium Chloride IVPB Not Given Q10H DENISA Ceftriaxone Sodium 1 gm/ 50 mls @ 100 mls/hr 01/07/18 10:00 01/08/18 09:50 Dextrose IVPB 100 mls/hr DAILY DENISA Administration Lisinopril 2.5 mg 01/06/18 10:00 01/08/18 09:50 Prinivil PO 2.5 mg DAILY DENISA Administration Ondansetron HCl 4 mg 01/05/18 15:58 Zofran Injection IVPUSH Q6H PRN NAUSEA AND/OR VOMITING Laboratory Results - last 24 hr 01/09/18 01/09/18 05:35 05:35 WBC 8.0 RBC 3.60 Hgb 11.1 Hct 32.8 MCV 91.0 MCH 30.8 MCHC 33.9 RDW 15.0 Plt Count 302 MPV 8.2 Sodium 133 L Potassium 3.7 Chloride 96 L Carbon Dioxide 23 Anion Gap 14 BUN 4 L Creatinine 0.3 L Random Glucose 115 H Calcium 7.9 L Phosphorus 2.2 L Magnesium 2.2 Microbiology 01/07/18 12:00 Urine - Urine - Catheterized Urine Culture - Final Contaminated: Please Repeat ASSESSMENT AND PLAN: 87 yof with PMHx of dementia, HTN, hyperlipidemia, osteoporosis admitted with fall, left hip intertrochanteric fracture -Left hip intertrochanteric fracture, s/p intramedullary nailing 01/05 -AMS, suspect delirium (CT head neg on admission) +/- encephalopathy from uncomplicated UTI -Fall, CT head on admission neg -HTN -Hypokalemia -Hypophosphatemia -Lower uncomplicated UTI Plan: Doing well, Mental status improved. s/p 3 days of ceftriaxone, d/c now Urine cultures noted. Lovenox x 4 weeks per orthopedic. D/c to SNF today.
[2018-01-09] MEDS ORDERED: DEXTROSE 5%-WATER - 50 ML IVPB ONE (09:01)
[2018-01-09] MEDS ORDERED: cefTRIAXone SODIUM 1 GM VIAL ONE (09:01)
[2018-01-09] MEDS ORDERED: PT OWN MED DRAWER 7, Y5N ONE (09:01)
[2018-01-09] MEDS: CEFTRIAXONE 1 GM in DEXTROSE 5%-WATER - 50 ML IVPB SCH (09:33)
[2018-01-09] MEDS: ENOXAPARIN NA (PORCINE) 40 MG/0.4 ML DISP.SYRIN SQ SCH (09:33)
[2018-01-09] MEDS: DOCUSATE SODIUM 100 MG CAPSULE (FP) PO SCH (09:33)
[2018-01-09] MEDS: LISINOPRIL 5 MG TABLET (FP) PO SCH (09:34)
[2018-01-09 14:36] VITALS: BP 128/69; PULSE 109; TEMP 97.6
[2018-01-09] MEDS ORDERED: NAPH,MB-DB/K PH,MBDB POWDER PACKET PO SCH (22:00)
--- NOTE | 2018-01-09 23:57 | DS ---
Physical Exam: SUBJECTIVE: Patient seen and examined by me this AM - No major overnight events. Remains confused overnight; Afebrile, hemostable, tachy to 120; - Pt with no complaints, did not cooperative with exam this AM; Denies any pain OBJECTIVE: Vital Signs Intake & Output 01/06/18 01/07/18 01/08/18 01/09/18 23:59 23:59 23:59 23:59 Intake Total 650 1750 2024 1400 Balance 650 1750 2024 1400 Period Temp Pulse Resp BP Sys/Pulido Pulse Ox Last 24 Hr 97.6 F-98.8 F 106-121 18-20 128-162/69-90 96 PHYSICAL EXAM GENERAL: Elderly woman, NAD, A&Ox1, laying in bed; somnolent HEAD: Normal with no signs of trauma. LUNGS: Breath sounds equal, clear to auscultation bilaterally, no wheezes, no crackles, no accessory muscle use. HEART: 2/6 systolic ejection murmur at RUSB. Regular rate and rhythm, S1, S2 without murmur, rub or gallop. EXTREMITIES: Incisions c/d/i/. Mild TTP. Ecchymoses on lateral dependent portion of L hip NEUROLOGICAL: Cranial nerves II through XII grossly intact. 2+ DP, PT pulses BL. PSYCH: Uncooperative. somnolent LABS Laboratory Results - last 24 hr CBC, BMP 01/09/18 05:35 01/09/18 05:35 01/09/18 01/09/18 05:35 05:35 WBC 8.0 RBC 3.60 Hgb 11.1 Hct 32.8 MCV 91.0 MCH 30.8 MCHC 33.9 RDW 15.0 Plt Count 302 MPV 8.2 Sodium 133 L Potassium 3.7 Chloride 96 L Carbon Dioxide 23 Anion Gap 14 BUN 4 L Creatinine 0.3 L Random Glucose 115 H Calcium 7.9 L Phosphorus 2.2 L Magnesium 2.2 Microbiology 01/07/18 12:00 Urine - Urine - Catheterized Urine Culture - Final Contaminated: Please Repeat pelvic XR 01/04 - Impression. Acute intertrochanteric fracture of the left hip. Normal relationship of the femoral head to the acetabulum. Head CT 01/04 - Impression. No evidence of acute intracranial hemorrhage, edema, midline shift, mass effect, or skull fracture. No CT evidence of acute territorial ischemic changes. BL Knee XR 01/04 -External rotational displacement of L femur relative to acetabulum. No other fx's noted. Consults: Ortho - Seen by Dr. Wiley Neurology - Seen by Dr. Arcos HOSPITAL COURSE: Prehospital course: 87 year old female with a history of HLD, osteoporosis, and dementia presented to the hospital s/p unwitnessed fall. Patient is a poor historian but is able to answer questions. She believes she tripped while getting up out of bed and hit her left side. Denies hitting her head, but is unsure. Patient reports not feeling lightheaded, not having any chest pain, palpitations, or shortness of breath. States that she is not in very much pain (3-4/10) and wishes to go home. Denies dysuria. Hospital course: In ED, pt with no lab abnormalities and negative UA (however + trace leuk esterase). Pelvic XR notable for intertrochanteric fracture of L femoral head. CT head negative. Ortho consulted. Seen by Dr. Wiley, medically cleared for Gamma Nail procedure. Pt received Gamma Nail on 01/05, no complications. Post-op period notable for intermittent delirium superimposed on baseline dementia. Neurology consulted. Recommended no intervention, MS likely consistent with dementia, new environment, sundowning etc. Pt started rocephin for UTI coverage , as possible cause of waxing/waning mental status. Consistent improvement with pain control, MS over the next few days. Discharged to [facility] for further rehab. Will likely require evaluation of home environment, as pt lives with elderly who is blind. Date of Admission:01/04/18 Date of Discharge: 01/09/18 Pt is medically stable and cleared for discharge with outpt f/u in two weeks w/ Dr. Wiley in Clinic. Minutes to complete discharge: 35 Discharge Summary Reason For Visit: CLOSED FRACTURE OF LEFT HIP Condition: Stable - Instructions Diet, Activity, Other Instructions: During your stay at [facility], you were treated for a fracture of your left femoral neck. You received surgery with our orthopedic surgeon, Dr. Wiley, with surgical fixation of your femoral head with a Gamma Nail procedure. You are being discharged to [facility] for further management of your care. Medications: The following medications were added to your regimen. Please take them as described below: Lovenox 40mg, one injection once a day, for the next four weeks. Please inform the nursing staff to instruct you on proper injection technique. Please take one Tylenol 325mg once every four hours if you experience pain at your surgical site, until the pain has subsided. Please continue to take all other home medications as previously directed. Follow-ups: Please follow-up with your primary care physician in one week for further management of your medications. Please call their office to schedule an appointment. Please follow-up with your surgeon, Dr. Wiley, in two weeks for further management of your post operative care. His contact number has been provided in this packet. Please call his office to make an appointment. Diet/exercise: You are approved for weight bearing as tolerated on your left foot. Please use a rolling walker when ambulating. You are approved for showering. Recommendations: early ambulation Frequent re-orientation and fall precautions. Please return to the hospital if you experience any of the following symptoms: - Numbness or weakness in your left leg - Any prolonged redness, drainage or excessive swelling at your surgical site - Severe shortness of breath - Increased, prolonged swelling in one leg versus the other - Any new or concerning symptoms Referrals: Marcos Wiley MD [Staff Physician] - 2 Weeks Disposition: [facility] - Home Medications Comprehensive Discharge Medication List: Ambulatory Orders Cane 1 each MC DAILY #1 each 11/26/17 Aspirin [Ecotrin] 81 mg PO DAILY 01/04/18 Lisinopril [Zestril] 2.5 mg PO DAILY 01/04/18 Simvastatin [Zocor -] 10 mg PO HS 01/04/18 Enoxaparin [Lovenox -] 40 mg SQ DAILY #30 disp.syrin 01/09/18 This patient is new to me today: No Emergency Visit: Yes ED Registration Date: 01/04/18 Care time: The patient presented to the Emergency Department on the above date and was hospitalized for further evaluation of their emergent condition. Critical Care patient: No - Discharge Referral Referred to [facility] No
== END 2018-01-09 15:47 | DRG 480 ==
LOC: JER 23:30 → JERBED 01-04 02:12 → J8W 01-04 03:53
PROVIDERS: ADMIT Internal Medicine; ATTEND Hospitalist
PROC: 0QS706Z Reposition Left Upper Femur with Intramedullary Internal Fixation Device, Open Approach (ICD-10-PCS; principal; 2018-01-05 14:30)
DX: S72.002A Fracture of unspecified part of neck of left femur, initial encounter for closed fracture (principal); G93.40 Encephalopathy, unspecified; F05 Delirium due to known physiological condition; N39.0 Urinary tract infection, site not specified; F03.90 Unspecified dementia, unspecified severity, without behavioral disturbance, psychotic disturbance, mood disturbance, and anxiety; E78.5 Hyperlipidemia, unspecified; E83.39 Other disorders of phosphorus metabolism; E87.6 Hypokalemia; M81.0 Age-related osteoporosis without current pathological fracture; W01.0XXA Fall on same level from slipping, tripping and stumbling without subsequent striking against object, initial encounter; Y93.89 Activity, other specified; Y92.89 Other specified places as the place of occurrence of the external cause; Y99.8 Other external cause status
CPT/HCPCS: 36415; 70450-TC; 72170-TC-FY; 73523-TC-FY; 73562-TC-LT-FY; 73562-TC-RT-FY; 76000-TC-FY; 80048; 80053; 81003; 81015; 83735; 84100; 85025; 85027; 85610; 86850; 86900; 86901; 87086; 93005; 93010; 97116-GP; 97162-GP; 99283-25; J1644; J7030

== ENCOUNTER 2018-02-07 14:34 | Emergency (ER) | payer OTHER, MEDICARE ==
[2018-02-07 14:47] VITALS: TEMP 97.8; BMI 18.5
--- NOTE | 2018-02-07 14:47 | PDOC ---
History of Present Illness - General Chief Complaint: Injury Stated Complaint: RIGHT WRIST FRACTURE Time Seen by Provider: 02/07/18 14:40 History Source: Patient - History of Present Illness Initial Comments: 02/07/18 14:47 87 year old female with a PMH of dementia presents from [facility] Tuesday morning - report to shift -- patient wasn't moving arm -- radial fracture -- confused removing splint 02/07/18 15:04 Past History - Past Medical History Allergies/Adverse Reactions: Allergies Allergy/AdvReac Type Severity Reaction Status Date / Time No Known Allergies Allergy Verified 01/03/18 23:32 Home Medications: Ambulatory Orders Cane 1 each MC DAILY #1 each 11/26/17 Aspirin [Ecotrin] 81 mg PO DAILY 01/04/18 Lisinopril [Zestril] 2.5 mg PO DAILY 01/04/18 Simvastatin [Zocor -] 10 mg PO HS 01/04/18 Enoxaparin [Lovenox -] 40 mg SQ DAILY #30 disp.syrin 01/09/18 Anemia: No COPD: No GI Disorders: Yes (COLONIC POLYPS) Hypercholesterolemia: Yes - Immunization History Immunization Up to Date: No - Suicide/Smoking/Psychosocial Hx Smoking Status: No Smoking History: Never smoked Have you smoked in the past 12 months: No Number of Cigarettes Smoked Daily: 0 Information on smoking cessation initiated: No Hx Alcohol Use: No Drug/Substance Use Hx: No Substance Use Type: None Hx Substance Use Treatment: No *Physical Exam - Vital Signs Last Vital Signs Temp Pulse Resp BP Pulse Ox 97.8 F 70 16 120/70 100 02/07/18 14:41 02/07/18 14:41 02/07/18 14:41 02/07/18 14:41 02/07/18 14:41 Medical Decision Making - Medical Decision Making 02/07/18 14:48 Adira, dementia wrist 02/07/18 17:43 X-R shows distal radial fracture. Patient stabilized using sugar tong splint. Radial pulses intact *DC/Admit/Observation/Transfer Diagnosis at time of Disposition: Colles' fracture of radius - Discharge Dispostion Disposition: [facility] F[facility] Condition at time of disposition: Good Admit: No - Referrals - Patient Instructions Printed Discharge Instructions: How to Prevent Falls Additional Instructions: Please make a follow-up appointment with orthopedic surgery in the next 24 hours. Return to the Emergency Department for any new/worsening/concerning symptoms. - Post Discharge Activity
--- NOTE | 2018-02-07 16:16 | PDOC ---
Attending Attestation - Resident Resident Name: Kailee Martinez - ED Attending Attestation I have performed the following: I have examined & evaluated the patient, The case was reviewed & discussed with the resident, I agree w/resident's findings & plan, Exceptions are as noted - HPI HPI: 02/07/18 16:14 The patient is an 87 year old female with past medical history of dementia, pulmonary emboli, CAD, recent R distal radius fx 4 days ago who arrives to the ED from [facility] after removing her splint. The nursing staff states that due to the patients dementia she keeps taking off her pre-willis splint. The patient denies any complaints. - Physicial Exam PE: 02/07/18 16:15 "GENERAL: Awake, alert, in no acute distress. HEAD: No signs of trauma EYES: PERRLA, EOMI, sclera anicteric, conjunctiva clear ENT: Auricles normal inspection, hearing grossly normal, nares patent, oropharynx clear without exudates. Moist mucosa NECK: Nontender, no stepoffs, Normal ROM, supple, no lymphadenopathy, JVD, or masses LUNGS: Breath sounds equal, clear to auscultation bilaterally. No wheezes, and no crackles HEART: Regular rate and rhythm, normal S1 and S2, no murmurs, rubs or gallops ABDOMEN: Soft, nontender, normoactive bowel sounds. No guarding, no rebound. No masses EXTREMITIES: R wrist with mild edema, +TTP distal radius, normal ROM, distal pulses and sensation intact NEUROLOGICAL: Cranial nerves II through XII intact. 5/5 strength and sensation in all extremities, Normal speech, normal gait, normal cerebellar function SKIN: Warm, Dry, normal turgor, no rashes or lesions noted. " - Medical Decision Making 02/07/18 16:15 87 F with R distal radius fx 4 days ago presenting to ED after removing her pre- willis splint. - Repeat XR to r/o displacement of fx - Orthoglass splint with shoulder immobilizer 02/07/18 17:18 XR with impacted distal radius fx, no significant displacement Pt placed in sugartong splint and shoulder immobilizer. Distal pulses and sensation intact. Pt is well appearing, with normal vitals. Clinically stable for DC at this time. I discussed the physical exam findings, ancillary test results and final diagnoses with the patient. I answered all of the patient's questions. The patient was satisfied with the care received and felt comfortable with the discharge plan and treatment plan. The patient agrees to follow up with the primary care physician within 24-72 hours.
[2018-02-07 19:00] VITALS: BP 133/61; PULSE 66
== END 2018-02-07 19:00 ==
LOC: JER 14:34
PROC: 2W3CX1Z Immobilization of Right Lower Arm using Splint (ICD-10-PCS; principal; 2018-02-07)
PROC: 2W3AXYZ Immobilization of Right Upper Arm using Other Device (ICD-10-PCS; 2018-02-07)
DX: Z47.89 Encounter for other orthopedic aftercare (principal); S52.531D Colles' fracture of right radius, subsequent encounter for closed fracture with routine healing; X58.XXXD Exposure to other specified factors, subsequent encounter; I10 Essential (primary) hypertension; E78.00 Pure hypercholesterolemia, unspecified; Z86.010 Personal history of colon polyps; Z79.01 Long term (current) use of anticoagulants; Z79.82 Long term (current) use of aspirin
CPT/HCPCS: 29125; 29240; 73110-TC-RT-FY; 73130-TC-RT-FY; 99282-25

== ENCOUNTER 2018-08-16 13:49 | Emergency (ER) | payer OTHER, MEDICARE ==
[2018-08-16] MEDS ORDERED: KETOROLAC TROMETHAMINE 15 MG/ML VIAL IVPUSH ONE (14:13)
[2018-08-16 14:20] VITALS: BP 161/93; PULSE 78; TEMP 97.6; BMI 18.1
--- NOTE | 2018-08-16 14:22 | PDOC ---
History of Present Illness - General Chief Complaint: Injury Stated Complaint: FALL History Source: Care Provider (daughter) Exam Limitations: Dementia - History of Present Illness Initial Comments: 08/16/18 14:15 This is a 88 year old female with a history of dementia, CAD, arthritis, frequent falls, presents with daughter after witnessed mechanical fall. History given by daughter who witnessed fall. Today, she was walking with walker along side daughter to the car. She left the walker to get into the car and tripped and fell. She landed on right hip, injuring right shoulder, elbow and hip. She also scraped her thumbs. Denies loc, head injury. She recently had left hip replaced due to mechanical fall. Patient denies N/V, F,C, CP, SOB, urinary complaints, abdominal pain, diarrhea, constipation, lightheadedness, weakness, sensory changes. PMHx: as noted above ROS: as noted SHx: left hip repair Allergies: none Occurred: reports: just prior to arrival Severity: reports: mild Pain Location: reports: lower extremity, upper extremity (right shoulder, elbow , hip pain) Method of Injury: Yes: fall Modifying Factors: improves with: None Loss of Consciousness: no loss of consciousness Associated Symptoms (Fall): denies symptoms Past History - Past Medical History Allergies/Adverse Reactions: Allergies Allergy/AdvReac Type Severity Reaction Status Date / Time No Known Allergies Allergy Verified 08/16/18 14:19 Home Medications: Ambulatory Orders Aspirin [Ecotrin] 81 mg PO DAILY 01/04/18 Alendronate Sodium [Binosto] 70 mg PO ASDIR 08/16/18 Citalopram Hydrobromide [Celexa -] 0 mg PO DAILY 08/16/18 Anemia: No COPD: No GI Disorders: Yes (COLONIC POLYPS) Hypercholesterolemia: Yes - Immunization History Immunization Up to Date: No - Suicide/Smoking/Psychosocial Hx Smoking Status: No Smoking History: Never smoked Have you smoked in the past 12 months: No Number of Cigarettes Smoked Daily: 0 Hx Alcohol Use: No Drug/Substance Use Hx: No Substance Use Type: None Hx Substance Use Treatment: No Trauma Specific PMHX - Complaint Specific PMHX Back Injury: No Neck Injury: No Review of Systems - Review of Systems Able to Perform ROS?: No (dementia) Is the patient limited [place] proficient: Yes *Physical Exam - Physical Exam General Appearance: Yes: Appropriately Dressed, Cachetic HEENT: positive: EOMI, Normal Voice Neck: positive: Trachea midline, Normal Thyroid, Supple Respiratory/Chest: positive: Lungs Clear, Normal Breath Sounds Cardiovascular: positive: Regular Rhythm, Regular Rate, S1, S2 Vascular Pulses: Carotid (R): 2+, Carotid (L): 2+ Gastrointestinal/Abdominal: positive: Normal Bowel Sounds Musculoskeletal: positive: Other (tenderness with palpation of right shoulder, elbow and hip) Extremity: positive: Coldness (very cold hands bilaterally), Other (decreased ROM of right shoulder; elbow; normal flexiom and extension or bilateral hips) Integumentary: positive: Cold (hands) Neurologic: 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: 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-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 NML intact, Normal Mood/Affect, Confused (at baseline;dementia) Deep Tendon Reflexes: Ankle (L): 2+, Ankle (R): 2+, Knee (L): 2+, Knee (R): 2+ ED Treatment Course - LABORATORY CBC & Chemistry Diagram: 08/16/18 14:33 08/16/18 14:33 - RADIOLOGY Radiology Studies Ordered: Category Date Time Status HEAD CT WITHOUT CONTRAST [CT] Stat CT Scan 08/16/18 14:10 Ordered ELBOW-RIGHT [RAD] Stat Radiology 08/16/18 14:11 Ordered HIP & PELVIS-RIGHT [RAD] Stat Radiology 08/16/18 14:11 Ordered HIP-RIGHT [RAD] Stat Radiology 08/16/18 14:11 Ordered SHOULDER-RIGHT [RAD] Stat Radiology 08/16/18 14:11 Ordered Medical Decision Making - Medical Decision Making 08/16/18 14:41 88 year old female with a history of dementia, mechanical falls, who presents s/ p witnessed mechanical fall with right shoulder, elbow and hip pain. Will r/o fracture, dislocation, acute brain injury/hemorrhage. -right shoulder and humerus, elbow xray -right hip and pelvis fracture -head ct -Tylenol for pain -head CT for right frontal swelling; no hematoma/bleed -right shoulder ant. dislocation on xray with a right hill sachs deformity -shoulder was relocated with external fixation -apply shoulder sling -repeat post location rt shoulder xray showing relocation -advise rest/sling; Tylenol for pain control -refer to ortho as outpatient 08/16/18 16:45 *DC/Admit/Observation/Transfer Diagnosis at time of Disposition: Fall Qualifiers: Encounter type: initial encounter Qualified Code(s): W19.XXXA - Unspecified fall, initial encounter Dislocation, shoulder, anterior Qualifiers: Encounter type: initial encounter Laterality: right Qualified Code(s): S43.014A - Anterior dislocation of right humerus, initial encounter Hill-Sachs deformity with bone bruise Qualifiers: Laterality: right Qualified Code(s): M21.821 - Other specified acquired deformities of right upper arm - Discharge Dispostion Disposition: HOME Condition at time of disposition: Fair Decision to Admit order: No - Referrals Referrals: Prasad Golden MD [Primary Care Provider] - - Patient Instructions Printed Discharge Instructions: How to Use a Sling, How to Prevent Falls Additional Instructions: Ms. Pablo, you have sustained a small right shoulder fracture and dislocation. Your right shoulder has been relocated back into place. We advise to continue to use the sling. Please rest area and not overextend your right arm or shoulder at this current time, as dislocation have tendency to go back out of place. You can use Tylenol for pain control. Do not exceed over 4grams in total of Tylenol per day. Please follow up with your orthopedist and primary care physician as soon as possible. IF you experience any worsening of symptoms please return to the emergency room. - Post Discharge Activity
[2018-08-16] MEDS ORDERED: ACETAMINOPHEN 500 MG TABLET (FP) PO ONE (14:30)
[2018-08-16] MEDS ORDERED: ACETAMINOPHEN 325 MG TABLET (FP) ONE (14:36)
[2018-08-16 14:52] LABS: BASO % 0.6 % (0-2.0); HEMATOCRIT 38.4 % (32.4-45.2); HEMOGLOBIN 12.8 GM/dL (10.7-15.3); LYMPH % 33.5 % (8-40); MCHC 33.4 g/dl (32.0-36.0); MEAN CELL VOLUME 89.9 fl (80-96); MONO % 5.9 % (3.8-10.2); PLATELET COUNT 301 K/MM3 (134-434); RBC 4.27 M/mm3 (3.60-5.2); RDW 16.1 % (11.6-15.6); WHITE BLOOD COUNT 7.5 K/mm3 (4.0-10.0)
[2018-08-16 15:17] LABS: ANION GAP 9 MMOL/L (8-16); BLOOD UREA NITROGEN 12 mg/dL (7-18); CALCIUM 9.3 mg/dL (8.5-10.1); CHLORIDE 100 mmol/L (98-107); CO2 26 mmol/L (21-32); CREATININE 0.4 mg/dL (0.55-1.3); GLUCOSE,RANDOM 95 mg/dL (74-106); POTASSIUM 4.2 mmol/L (3.5-5.1); SODIUM 135 mmol/L (136-145)
--- NOTE | 2018-08-16 15:51 | PDOC ---
Attending Attestation - HPI HPI: This is an 88 year old female with a PMHx of dementia, CAD, arthritis, frequent falls (recent left hip replacement), who presents with daughter s/p witnessed mechanical fall. Patients daughter states that she normally ambulates with a walker and left the walker in the trunk to get into the car and fell. She states she landed on right hip, injuring her right shoulder, elbow and hip. She denies hitting her head or loc but is currently complaining of a slight headache. She also scraped her thumbs. <Valerie Vo - Last Filed: 08/16/18 15:53> - Resident Resident Name: Cata Phipps - ED Attending Attestation I have performed the following: I have examined & evaluated the patient, The case was reviewed & discussed with the resident, I agree w/resident's findings & plan, Exceptions are as noted - HPI HPI: 08/16/18 15:50 88-year-old female with history of dementia, presents with traumatic right shoulder elbow and right hip pain status post mechanical fall. Patient denies LOC/neck pain. - Physicial Exam PE: 08/16/18 15:50 Patient is awake and alert, in no distress Normocephalic, atraumatic Neck is supple without deformity or midline tenderness CTA + Deformity of the right deltoid with a loss of proper shoulder contour with pain on internal/external rotation; full range of motion of the elbow, neurovascularly intact distally Pelvis is stable, full range of motion at right/left hip - Medical Decision Making 08/16/18 15:51 88-year-old female with traumatic right shoulder pain we'll rule out dislocation. Will obtain CT head to rule out intracranial pathology. Will attempt closed reduction. 08/16/18 16:24 Right shoulder x-ray reveals anterior and inferior dislocation of the humeral head. Hill sacks deformaty is noted. Patient neurovascularly intact. Shoulder dislocation reduced using external rotation method without additional pharmacological intervention. Will obtain postreduction x-ray. Will discharge. <Jameson Ang - Last Filed: 08/16/18 16:47> Joint Reduction - Joint Reduction Risks and Benefits Explained: Yes Consent on Chart: Yes Joint Reduction Site: right: Humeral Surgical Neck, Anterior Dislocation Pre-Procedure Neuro/Vascular Exam: Warm, [place], Normal Sensation, Positive Distal Pulse(s) Procedure: Other (external rotation) Reduction Attempts: 1 Post-Procedure Neuro/Vascular Exam: Unchanged from pre-exam Post Joint Reduction Film: joint reduced Immobilized: Yes (sling provided) Remarks: pt niranjan procedure well <Jameson Ang - Last Filed: 08/16/18 16:47>
== END 2018-08-16 17:25 | disposition home or self-care (01) ==
LOC: JER 13:49
DX: S43.014A Anterior dislocation of right humerus, initial encounter (principal); M21.821 Other specified acquired deformities of right upper arm; W18.39XA Other fall on same level, initial encounter; Y93.89 Activity, other specified; Y92.414 Local residential or business street as the place of occurrence of the external cause; Z99.89 Dependence on other enabling machines and devices; I25.10 Atherosclerotic heart disease of native coronary artery without angina pectoris; Z91.81 History of falling
CPT/HCPCS: 36415; 70450-TC; 73030-TC-RT-FY; 73060-TC-RT-FY; 73070-TC-RT-FY; 73502-TC-RT; 73523-TC-FY; 80048; 85025; 99282-25

== ENCOUNTER 2018-11-29 15:49 | Inpatient (IN) | payer OTHER, MEDICARE ==
[2018-11-29] MEDS ORDERED: SODIUM CHLORIDE 0.9% 500 ML INFUS.BAG IV ONE ×2 (16:41→17:46)
--- NOTE | 2018-11-29 16:44 | PDOC ---
History of Present Illness - General Chief Complaint: Nausea/Vomiting Stated Complaint: SICK VOMITING Time Seen by Provider: 11/29/18 16:19 History Source: Family Exam Limitations: Dementia - History of Present Illness Initial Comments: 11/29/18 16:41 88YOF with h/o dementia, CAD, arthritis, pulmonary emboli, and frequent falls ( recent left hip replacement), who presents with her daughter c/o nausea, 3 episodes NBNB vomiting, decreased PO intake of food and liquid, occasional gasping sounds coming from her throat, and generalized malaise per her daughter. The daughter notes she did receive her flu vaccination this year, and has not had any known sick contacts recently. She additionally will not let anyone change her diaper and this is not her baseline, so the daughter is concerned she may have a UTI. The patient lives at home with her daughter and they have live-in home health aides. Past History - Past Medical History Allergies/Adverse Reactions: Allergies Allergy/AdvReac Type Severity Reaction Status Date / Time No Known Allergies Allergy Verified 08/16/18 14:19 Home Medications: Ambulatory Orders Aspirin [Ecotrin] 81 mg PO DAILY 01/04/18 Alendronate Sodium [Binosto] 10 mg PO DAILY 08/16/18 Citalopram Hydrobromide [Celexa -] 10 mg PO DAILY 08/16/18 Ascorbic Acid [Vitamin C] 500 mg PO DAILY 11/29/18 Brinzolamide [Azopt] 1 drop OU BID 11/29/18 Calcium Carbonate [Calcium] 500 mg PO DAILY 11/29/18 Cholecalciferol (Vitamin D3) [Vitamin D] 2,000 unit PO DAILY 11/29/18 Lactobacillus Acidophilus [Probiotic] 1 each PO DAILY 11/29/18 Latanoprost 0.005% Eye Drops [Xalatan 0.005% Eye Drops -] 1 drop OU HS 11/29/18 Timolol 0.5% [Timoptic 0.5%] 1 drop OU BID 11/29/18 Vitamin B Complex [B Complex] 1 each PO DAILY 11/29/18 Anemia: No COPD: No Dementia: Yes GI Disorders: Yes (COLONIC POLYPS) Hypercholesterolemia: Yes - Immunization History Immunization Up to Date: No - Suicide/Smoking/Psychosocial Hx Smoking Status: No Smoking History: Never smoked Have you smoked in the past 12 months: No Number of Cigarettes Smoked Daily: 0 Information on smoking cessation initiated: No Hx Alcohol Use: No Drug/Substance Use Hx: No Substance Use Type: None Hx Substance Use Treatment: No Review of Systems - Review of Systems Able to Perform ROS?: No (dementia) *Physical Exam - Vital Signs Last Vital Signs Temp Pulse Resp BP Pulse Ox 98.8 F 97 H 18 149/67 98 11/29/18 15:57 11/29/18 15:57 11/29/18 15:57 11/29/18 15:57 11/29/18 15:57 - Physical Exam Comments: 11/29/18 17:02 GENERAL: very pleasant elderly female who is a bit dehydrated but otherwise nontoxic-appearing, alert but not orientedx4, no distress, daughter at bedside provides her history HEENT: PERRLA, EOMI, slightly dry mucous membranes NECK/BACK: no midline ttp, no spinal stepoff or deformity, no hematoma, full ROM , neck supple CARDIOVASCULAR: irregularly irregular rhythm versus regular with frequent PVCs, normal S1S2, no MGR, strong peripheral pulses, capillary refill <2 seconds, extremities wwp, no edema LUNGS/RESPIRATORY: no respiratory distress, CTAB GI/ABDOMEN: symmetric [id number], normoactive BS, soft, no ttp, no midline pulsatile masses, left inguinal hernia without tenderness or skin changes : no CVA tenderness EXTREMITIES: no acute muscle atrophy, no acute deformity, no edema SKIN: warm and dry, no pallor, no jaundice, no rash, no bruising, no skin breakdown, no cuts, no lesions NEUROLOGICAL: GCS 15, CN II-XII grossly intact, 5/5 strength proximally and distally, no facial droop Moderate Sedation - Procedure Monitoring Vital Signs: Procedure Monitoring Vital Signs Temperature 98.8 F 11/29/18 15:57 Pulse Rate 97 H 11/29/18 15:57 Respiratory Rate 18 11/29/18 15:57 Blood Pressure 149/67 11/29/18 15:57 O2 Sat by Pulse Oximetry (%) 98 11/29/18 15:57 Heart Score/ECG Review #1 Sinus rhythm rate 96 with PACs, normal axis and intervals, TWI in III, aVF, and V6. ED Treatment Course - LABORATORY CBC & Chemistry Diagram: 11/30/18 09:23 11/30/18 09:23 - RADIOLOGY Radiology Studies Ordered: Category Date Time Status CHEST X-RAY PORTABLE* [RAD] Stat Radiology 11/29/18 16:41 Ordered Medical Decision Making - Medical Decision Making 11/29/18 17:04 88YOF Pt p/w malaise, nausea, vomiting, not taking PO. Initial Vital Signs Temp Pulse Resp BP Pulse Ox 98.8 F 97 H 18 149/67 98 11/29/18 15:57 11/29/18 15:57 11/29/18 15:57 11/29/18 15:57 11/29/18 15:57 Exam: As noted in Physical Exam section. DDX IBNLT: most likely influenza, other viral syndrome e.g. gastroenteritis, UTI , or PNA/bronchitis. Much less likely SBO (e.g. from inguinal hernia), ACS, PUD , or any other more serious pathology. W/U ordered: Labs as noted below, EKG, CXR TX ordered: IVF Zofran EKG: Reviewed; results as noted in ECG Review section. RAD/CHEST X-RAY PORTABLE* Chest: Gasping. A single AP view the chest reveals a weak inspiration with large heart, sclerotic unfolded aorta and prominent hilar markings. An acute chest process is not seen. The angles are sharp. The bones and soft tissues are intact. Correlation recommended Laboratory Tests 11/29/18 11/29/18 11/29/18 17:15 17:15 17:19 WBC 6.8 RBC 4.08 Hgb 12.5 Hct 35.7 MCV 87.6 MCH 30.7 MCHC 35.0 RDW 15.4 Plt Count 275 MPV 7.0 L Absolute Neuts (auto) 5.1 Neutrophils % 75.1 D Lymphocytes % 13.7 D Monocytes % 10.5 H Eosinophils % 0.0 D Basophils % 0.7 Nucleated RBC % 0 Sodium 134 L Potassium 3.8 Chloride 99 Carbon Dioxide 27 Anion Gap 8 BUN 10 Creatinine 0.4 L Creat Clearance w eGFR > 60 Random Glucose 121 H Calcium 8.8 Magnesium 2.1 Total Bilirubin 0.6 AST 14 L ALT 15 Alkaline Phosphatase 124 H Troponin I 0.02 Total Protein 7.4 Albumin 3.6 Urine Color Urine Appearance Urine pH Ur Specific [place] Urine Protein Urine Glucose (UA) Urine Ketones Urine Blood Urine Nitrite Urine Bilirubin Urine Urobilinogen Ur Leukocyte Esterase Urine WBC (Auto) Urine RBC (Auto) Urine Bacteria Urine Mucus Influenza A (Rapid) Positive A Influenza B (Rapid) Negative 11/29/18 17:30 WBC RBC Hgb Hct MCV MCH MCHC RDW Plt Count MPV Absolute Neuts (auto) Neutrophils % Lymphocytes % Monocytes % Eosinophils % Basophils % Nucleated RBC % Sodium Potassium Chloride Carbon Dioxide Anion Gap BUN Creatinine Creat Clearance w eGFR Random Glucose Calcium Magnesium Total Bilirubin AST ALT Alkaline Phosphatase Troponin I Total Protein Albumin Urine Color Yellow Urine Appearance Slcloudy Urine pH 6.0 D Ur Specific [place] 1.019 Urine Protein 1+ H Urine Glucose (UA) Negative Urine Ketones Negative Urine Blood Negative Urine Nitrite Negative Urine Bilirubin Negative Urine Urobilinogen Negative Ur Leukocyte Esterase Negative Urine WBC (Auto) 1 Urine RBC (Auto) 1 Urine Bacteria Rare Urine Mucus Rare Influenza A (Rapid) Influenza B (Rapid) Patient given Tamiflu and refused pill. RN kindly crushed it up and put it in apple sauce, still refused. I have placed order for Tamiflu suspension. Repeat VS: All within normal limits as documented (20:30) ADMIT The Pt is unsafe for discharge at this time. They require further hospital observation, workup, and treatment. Dr. Aldana is called for admission. 11/29/18 19:[address] Aldana and patient is going to IP Med/Surg. Decision to Admit order placed to Dr. Aldana. *DC/Admit/Observation/Transfer Diagnosis at time of Disposition: Influenza Vomiting Qualifiers: Vomiting type: unspecified Vomiting Intractability: non-intractable Nausea presence: with nausea Qualified Code(s): R11.2 - Nausea with vomiting, unspecified - Discharge Dispostion Condition at time of disposition: Guarded Decision to Admit order: Yes - Referrals - Patient Instructions - Post Discharge Activity
[2018-11-29] MEDS ORDERED: ONDANSETRON 4 MG/2 ML VIAL IVPUSH ONE (17:19)
[2018-11-29 17:33] LABS: BASO % 0.7 % (0-2.0); HEMATOCRIT 35.7 % (32.4-45.2); HEMOGLOBIN 12.5 GM/dL (10.7-15.3); LYMPH % 13.7 % (8-40); MCH 30.7 pg (25.7-33.7); MEAN CELL VOLUME 87.6 fl (80-96); MONO % 10.5 % (3.8-10.2); NEUT % 75.1 % (42.8-82.8); PLATELET COUNT 275 K/MM3 (134-434); RBC 4.08 M/mm3 (3.60-5.2); RDW 15.4 % (11.6-15.6); WHITE BLOOD COUNT 6.8 K/mm3 (4.0-10.0)
[2018-11-29] MEDS ORDERED: ONDANSETRON 4 MG/2 ML VIAL ONE (17:43)
[2018-11-29 17:45] LABS: URINE APPEARANCE SLCLOUDY; URINE BILIRUBIN NEGATIVE (<2.0 mg/dL); URINE COLOR YELLOW; URINE GLUCOSE (UA) NEGATIVE (NEGATIVE); URINE KETONE NEGATIVE (NEGATIVE); URINE LEUK ESTERASE NEGATIVE (NEGATIVE); URINE NITRITE NEGATIVE (NEGATIVE); URINE PROTEIN 1+ (NEGATIVE); URINE UROBILINOGEN NEGATIVE mg/dL (0.2-1.0)
[2018-11-29 17:52] LABS: URINE BACTERIA RARE /hpf (NONE SEEN); URINE MUCUS RARE
--- NOTE | 2018-11-29 17:53 | PDOC ---
Attending Attestation - HPI HPI: 11/29/18 17:57 The patient is an 88 year old female with a history of dementia, CAD, arthritis , pulmonary embolism, and frequent falls (s/p recent L hip replacement) presents to the ER brought in by daughter for nausea, 3 episodes of nonbloody, nonbilious vomit, decreased appetite, and generalized malaise. Patients last bowel movement was at noon today. As per daughter at bedside, patient did receive her flu vaccine. No known sick contact. Patient admits to dysuria, but denies cp, sob, abd pain. - Physicial Exam PE: 11/29/18 17:57 ADULT PHYSICAL EXAM Constitutional: Awake, alert, oriented. No acute distress. Head: Normocephalic. Atraumatic Eyes: PERRL. EOMI. Conjunctivae are not pale. ENT: (+) Mucous membranes are dry. Posterior pharynx without exudates or erythema. Uvula midline. Neck: Supple. Full ROM. No lymphadenopathy. Cardiovascular: (+) Tachycardic. Regular rhythm. S1, S2 regular. Distal pulses are 2+ and symmetric. Pulmonary/Chest: No evidence of respiratory distress. Clear to auscultation bilaterally No wheezing, rales or rhonchi. Abdominal: Soft and non-distended. There is no tenderness. Musculoskeletal: No edema. Full range of motion in all extremities. No calf tenderness. Radial/pedal pulses are intact and 2+ bilaterally Skin: Skin is warm and dry. No petechiae. No purpura. Neurological: Alert and oriented to person, place, and time. Cranial nerves II -XII are grossly intact. Normal speech. Strength is grossly symmetric. No sensory deficits. Psychiatric: Good eye contact. Normal interaction, affect and behavior. <Radha Thurman - Last Filed: 11/29/18 17:58> - Resident Resident Name: Namrata Marcos - ED Attending Attestation I have performed the following: I have examined & evaluated the patient, The case was reviewed & discussed with the resident, I agree w/resident's findings & plan, Exceptions are as noted - Medical Decision Making 11/29/18 17:52 I, Dr. Marzena Forte, DO, attest that this document has been prepared under my direction and personally reviewed by me in its entirety. I further attest, that it accurately reflects all work, treatment, procedures and medical decision -making performed by me. 11/29/18 17:53 a/p: 88yo female with n/v today -last bm today and normal per the daughter -no abd pain, no ttp on exam -c/o dysuria -will send labs, ua -will hydrate -dry cracked tongue -will hydrate, zofran -will monitor and reassess 11/29/18 18:39 pt flu A + not tolerated po will start tamiflu, will admit for ivf hydration and supportive care 11/29/18 19:04 resident discussed the case with medicine who accepts pt to service 11/29/18 19:04 Dr. Aldana accepts pt to service <Marzena Forte - Last Filed: 11/29/18 19:05> Heart Score/ECG Review - ECG Intrepretation Comment:: 11/29/18 17:56 sinus at 96, nl axis, lvh, t wave inversions lateral leads - unchanged from prior ekg <Marzena Forte - Last Filed: 11/29/18 19:05>
[2018-11-29] MEDS ORDERED: OSELTAMIVIR PHOSPHATE 75 MG CAPSULE PO ONE (18:11)
[2018-11-29 18:24] LABS: ALBUMIN 3.6 g/dl (3.4-5.0); ALK PHOS 124 U/L (45-117); ANION GAP 8 MMOL/L (8-16); BILIRUBIN,TOTAL 0.6 mg/dL (0.2-1); BLOOD UREA NITROGEN 10 mg/dL (7-18); CALCIUM 8.8 mg/dL (8.5-10.1); CHLORIDE 99 mmol/L (98-107); CO2 27 mmol/L (21-32); CREATININE 0.4 mg/dL (0.55-1.3); GLUCOSE,RANDOM 121 mg/dL (74-106); MAGNESIUM 2.1 mg/dL (1.8-2.4); POTASSIUM 3.8 mmol/L (3.5-5.1); SGOT/AST 14 U/L (15-37); SGPT/ALT 15 U/L (13-61); SODIUM 134 mmol/L (136-145); TOT PROT 7.4 g/dl (6.4-8.2)
[2018-11-29] MEDS ORDERED: OSELTAMIVIR PHOSPHATE 75 MG CAPSULE ONE (18:52)
[2018-11-29] MEDS ORDERED: OSELTAMIVIR PHOSPHATE 6 MG/1 ML PO ONE (19:00)
--- NOTE | 2018-11-29 21:22 | HP ---
Admitting History and Physical - Primary Care Physician PCP: Paulina Aladna - Admission History of Present Illness: 88YOF with h/o dementia, CAD, arthritis, pulmonary emboli, and frequent falls ( recent left hip replacement), who presents with her daughter c/o nausea, 3 episodes NBNB vomiting, decreased PO intake of food and liquid, occasional gasping sounds coming from her throat, and generalized malaise per her daughter. The daughter notes she did receive her flu vaccination this year, and has not had any known sick contacts recently. She additionally will not let anyone change her diaper and this is not her baseline, so the daughter is concerned she may have a UTI. The patient lives at home with her daughter and they have live-in home health aides. - Past Medical History [employer]: Yes: Dementia - Smoking History Smoking history: Never smoked Have you smoked in the past 12 months: No Aproximately how many cigarettes per day: 0 - Alcohol/Substance Use Hx Alcohol Use: No Home Medications - Allergies Allergies/Adverse Reactions: Allergies Allergy/AdvReac Type Severity Reaction Status Date / Time No Known Allergies Allergy Verified 08/16/18 14:19 - Home Medications Home Medications: Ambulatory Orders Aspirin [Ecotrin] 81 mg PO DAILY 01/04/18 Alendronate Sodium [Binosto] 10 mg PO DAILY 08/16/18 Citalopram Hydrobromide [Celexa -] 10 mg PO DAILY 08/16/18 Ascorbic Acid [Vitamin C] 500 mg PO DAILY 11/29/18 Brinzolamide [Azopt] 1 drop OU BID 11/29/18 Calcium Carbonate [Calcium] 500 mg PO DAILY 11/29/18 Cholecalciferol (Vitamin D3) [Vitamin D] 2,000 unit PO DAILY 11/29/18 Lactobacillus Acidophilus [Probiotic] 1 each PO DAILY 11/29/18 Latanoprost 0.005% Eye Drops [Xalatan 0.005% Eye Drops -] 1 drop OU HS 11/29/18 Timolol 0.5% [Timoptic 0.5%] 1 drop OU BID 11/29/18 Vitamin B Complex [B Complex] 1 each PO DAILY 11/29/18 Physical Examination Vital Signs: Vital Signs Temperature 98.5 F 11/29/18 20:30 Pulse Rate 88 11/29/18 20:30 Respiratory Rate 19 11/29/18 20:30 Blood Pressure 144/78 11/29/18 20:30 O2 Sat by Pulse Oximetry (%) 100 11/29/18 20:30 Constitutional: Yes: No Distress HENT: Yes: Atraumatic Neck: Yes: Supple Cardiovascular: Yes: Regular Rate and Rhythm Respiratory: Yes: Rhonchi Gastrointestinal: Yes: Normal Bowel Sounds Extremities: Yes: WNL Edema: No Peripheral Pulses WNL: Yes Labs: CBC, BMP 11/29/18 17:15 11/29/18 17:15 Problem List - Problems (1) Influenza Assessment/Plan: got tamiflu id cnsult prn tylenol for fever Code(s): J11.1 - FLU DUE TO UNIDENTIFIED INFLUENZA VIRUS W OTH RESP MANIFEST (2) Vomiting Assessment/Plan: prn zofran Code(s): R11.10 - VOMITING, UNSPECIFIED Qualifiers: Vomiting type: unspecified Vomiting Intractability: non-intractable Nausea presence: with nausea Qualified Code(s): R11.2 - Nausea with vomiting, unspecified Assessment/Plan Laboratory Tests 11/29/18 11/29/18 11/29/18 17:15 17:15 17:19 WBC 6.8 RBC 4.08 Hgb 12.5 Hct 35.7 MCV 87.6 MCH 30.7 MCHC 35.0 RDW 15.4 Plt Count 275 MPV 7.0 L Absolute Neuts (auto) 5.1 Neutrophils % 75.1 D Lymphocytes % 13.7 D Monocytes % 10.5 H Eosinophils % 0.0 D Basophils % 0.7 Nucleated RBC % 0 Sodium 134 L Potassium 3.8 Chloride 99 Carbon Dioxide 27 Anion Gap 8 BUN 10 Creatinine 0.4 L Creat Clearance w eGFR > 60 Random Glucose 121 H Calcium 8.8 Magnesium 2.1 Total Bilirubin 0.6 AST 14 L ALT 15 Alkaline Phosphatase 124 H Troponin I 0.02 Total Protein 7.4 Albumin 3.6 Urine Color Urine Appearance Urine pH Ur Specific [place] Urine Protein Urine Glucose (UA) Urine Ketones Urine Blood Urine Nitrite Urine Bilirubin Urine Urobilinogen Ur Leukocyte Esterase Urine WBC (Auto) Urine RBC (Auto) Urine Bacteria Urine Mucus Influenza A (Rapid) Positive A Influenza B (Rapid) Negative 11/29/18 17:30 WBC RBC Hgb Hct MCV MCH MCHC RDW Plt Count MPV Absolute Neuts (auto) Neutrophils % Lymphocytes % Monocytes % Eosinophils % Basophils % Nucleated RBC % Sodium Potassium Chloride Carbon Dioxide Anion Gap BUN Creatinine Creat Clearance w eGFR Random Glucose Calcium Magnesium Total Bilirubin AST ALT Alkaline Phosphatase Troponin I Total Protein Albumin Urine Color Yellow Urine Appearance Slcloudy Urine pH 6.0 D Ur Specific [place] 1.019 Urine Protein 1+ H Urine Glucose (UA) Negative Urine Ketones Negative Urine Blood Negative Urine Nitrite Negative Urine Bilirubin Negative Urine Urobilinogen Negative Ur Leukocyte Esterase Negative Urine WBC (Auto) 1 Urine RBC (Auto) 1 Urine Bacteria Rare Urine Mucus Rare Influenza A (Rapid) Influenza B (Rapid) Active Medications Generic Name Dose Route Start Last Admin Trade Name Freq PRN Reason Stop Dose Admin Aspirin 81 mg 11/30/18 10:00 11/30/18 11:40 Ecotrin - PO 81 mg DAILY DENISA Administration Citalopram Hydrobromide 10 mg 11/30/18 10:00 11/30/18 11:39 Celexa - PO 10 mg DAILY DENISA Administration Heparin Sodium (Porcine) 5,000 unit 11/29/18 22:00 11/30/18 11:40 Heparin - SQ 5,000 unit BID REPLACED BY [facility] Administration Latanoprost 1 drop 11/29/18 22:00 11/29/18 22:45 Xalatan 0.005% Eye Drops - OU Not Given HS REPLACED BY [facility] Non-Formulary Medication 1 drop 11/29/18 22:00 Brinzolamide [Azopt] OU BID REPLACED BY [facility] Oseltamivir Phosphate 75 mg 11/30/18 18:45 Tamiflu - PO 12/05/18 18:44 DAILY REPLACED BY [facility] Timolol Maleate 1 drop 11/29/18 22:00 11/30/18 12:43 Timoptic 0.5% OU Not Given BID REPLACED BY [facility]
[2018-11-29] MEDS ORDERED: PATIENT'S OWN MEDICATION (NON-FORMULARY) (Brinzolamide [Azopt] 1 DROP) OU SCH (22:00)
[2018-11-29] MEDS: HEPARIN NA (PORCINE) 5,000 UNITS/ML 1ML VIAL SQ SCH (22:45)
[2018-11-29] MEDS: LATANOPROST 0.005% OPHTH SOLN 2.5ML BOTTLE OU SCH (22:45)
[2018-11-29] MEDS: TIMOLOL 0.5% OPHTHALMIC SOL 5 ML BOTTLE OU SCH (22:45)
[2018-11-29] MEDS ORDERED: HEPARIN NA (PORCINE) 5,000 UNITS/ML 1ML VIAL ONE (23:07)
[2018-11-30 09:55] LABS: BASO % 0.8 % (0-2.0); EOS % 0.2 % (0-4.5); HEMATOCRIT 33.3 % (32.4-45.2); HEMOGLOBIN 11.7 GM/dL (10.7-15.3); LYMPH % 37.2 % (8-40); MCH 30.9 pg (25.7-33.7); MCHC 35.2 g/dl (32.0-36.0); MEAN CELL VOLUME 87.7 fl (80-96); MEAN PLT VOLUME 7.3 fl (7.5-11.1); MONO % 14.2 % (3.8-10.2); NEUT % 47.6 % (42.8-82.8); PLATELET COUNT 231 K/MM3 (134-434); RBC 3.79 M/mm3 (3.60-5.2); RDW 15.5 % (11.6-15.6); WHITE BLOOD COUNT 4.1 K/mm3 (4.0-10.0)
[2018-11-30 11:03] LABS: ALK PHOS 97 U/L (45-117); ANION GAP 7 MMOL/L (8-16); BILIRUBIN,TOTAL 0.4 mg/dL (0.2-1); BLOOD UREA NITROGEN 9 mg/dL (7-18); CALCIUM 8.3 mg/dL (8.5-10.1); CHLORIDE 103 mmol/L (98-107); CO2 26 mmol/L (21-32); CREATININE 0.3 mg/dL (0.55-1.3); GLUCOSE,RANDOM 89 mg/dL (74-106); POTASSIUM 3.8 mmol/L (3.5-5.1); SGOT/AST 15 U/L (15-37); SGPT/ALT 14 U/L (13-61); SODIUM 137 mmol/L (136-145)
[2018-11-30] MEDS ORDERED: ASPIRIN 81 MG CHEWABLE TABLETS ONE ×2 (11:38→14:26)
[2018-11-30] MEDS ORDERED: CITALOPRAM HYDROBROMIDE 10 MG TABLET (FP) ONE (11:38)
[2018-11-30] MEDS ORDERED: HEPARIN NA (PORCINE) 5,000 UNITS/ML 1ML VIAL ONE (11:38)
[2018-11-30] MEDS: CITALOPRAM HYDROBROMIDE 10 MG TABLET (FP) PO SCH (11:39)
[2018-11-30] MEDS: ASPIRIN COATED 81 MG TABLET.EC PO SCH (11:40)
[2018-11-30] MEDS: HEPARIN NA (PORCINE) 5,000 UNITS/ML 1ML VIAL SQ SCH ×2 (11:40→21:23)
[2018-11-30] MEDS: TIMOLOL 0.5% OPHTHALMIC SOL 5 ML BOTTLE OU SCH ×2 (12:43→21:24)
--- NOTE | 2018-11-30 15:47 | CON.ID ---
Consult Consult Specialty:: infectious diseases Referred by:: Reason for Consultation:: flu,r/o pna. weakness - Past Medical History [employer]: Yes: Dementia - Alcohol/Substance Use Hx Alcohol Use: No - Smoking History Smoking history: Never smoked Have you smoked in the past 12 months: No Aproximately how many cigarettes per day: 0 Home Medications - Allergies Allergies/Adverse Reactions: Allergies Allergy/AdvReac Type Severity Reaction Status Date / Time No Known Allergies Allergy Verified 08/16/18 14:19 - Home Medications Home Medications: Ambulatory Orders Aspirin [Ecotrin] 81 mg PO DAILY 01/04/18 Alendronate Sodium [Binosto] 10 mg PO DAILY 08/16/18 Citalopram Hydrobromide [Celexa -] 10 mg PO DAILY 08/16/18 Ascorbic Acid [Vitamin C] 500 mg PO DAILY 11/29/18 Brinzolamide [Azopt] 1 drop OU BID 11/29/18 Calcium Carbonate [Calcium] 500 mg PO DAILY 11/29/18 Cholecalciferol (Vitamin D3) [Vitamin D] 2,000 unit PO DAILY 11/29/18 Lactobacillus Acidophilus [Probiotic] 1 each PO DAILY 11/29/18 Latanoprost 0.005% Eye Drops [Xalatan 0.005% Eye Drops -] 1 drop OU HS 11/29/18 Timolol 0.5% [Timoptic 0.5%] 1 drop OU BID 11/29/18 Vitamin B Complex [B Complex] 1 each PO DAILY 11/29/18 Physical Exam Vital Signs: Vital Signs Temperature 97.8 F 11/30/18 14:22 Pulse Rate 64 11/30/18 14:22 Respiratory Rate 16 11/30/18 14:22 Blood Pressure 127/77 11/30/18 14:22 O2 Sat by Pulse Oximetry (%) 100 11/30/18 09:00 Labs: CBC, BMP 11/30/18 09:23 11/30/18 09:23
--- NOTE | 2018-11-30 16:45 | EKG ---
Test Reason : Blood Pressure : / mmHG Vent. Rate : 096 BPM Atrial Rate : 096 BPM P-R Int : 134 ms QRS Dur : 082 ms QT Int : 408 ms P-R-T Axes : 064 001 -16 degrees QTc Int : 515 ms SINUS RHYTHM WITH PREMATURE ATRIAL COMPLEXES POSSIBLE LEFT ATRIAL ENLARGEMENT LEFT VENTRICULAR HYPERTROPHY PROLONGED QT ABNORMAL ECG WHEN COMPARED WITH ECG OF 07-JAN-2018 10:30, PREMATURE VENTRICULAR COMPLEXES ARE NO LONGER PRESENT Confirmed by BURTON BENSON, LUDMILA ([id number]) on 11/30/2018 4:44:50 PM Referred By: Confirmed By:LUDMILA MANRIQUE MD
--- NOTE | 2018-11-30 17:06 | PN ---
Progress Note, Physician - Current Medication List Current Medications: Active Medications Aspirin (Ecotrin -) 81 mg PO DAILY [facility] Last Admin: 11/30/18 11:40 Dose: 81 mg Citalopram Hydrobromide (Celexa -) 10 mg PO DAILY [facility] Last Admin: 11/30/18 11:39 Dose: 10 mg Heparin Sodium (Porcine) (Heparin -) 5,000 unit SQ BID [facility] Last Admin: 11/30/18 11:40 Dose: 5,000 unit Latanoprost (Xalatan 0.005% Eye Drops -) 1 drop OU HS [facility] Last Admin: 11/29/18 22:45 Dose: Not Given Non-Formulary Medication (Brinzolamide [Azopt]) 1 drop OU BID [facility] Timolol Maleate (Timoptic 0.5%) 1 drop OU BID [facility] Last Admin: 11/30/18 12:43 Dose: Not Given - Objective Vital Signs: Vital Signs Temperature 97.8 F 11/30/18 14:22 Pulse Rate 64 11/30/18 14:22 Respiratory Rate 16 11/30/18 14:22 Blood Pressure 127/77 11/30/18 14:22 O2 Sat by Pulse Oximetry (%) 100 11/30/18 09:00 Constitutional: Yes: No Distress HENT: Yes: Atraumatic Neck: Yes: Supple Cardiovascular: Yes: Regular Rate and Rhythm Respiratory: Yes: CTA Bilaterally Gastrointestinal: Yes: Normal Bowel Sounds Extremities: Yes: WNL Edema: No Peripheral Pulses WNL: Yes Neurological: Yes: Alert, Oriented Labs: CBC, BMP 11/30/18 09:23 11/30/18 09:23 Problem List - Problems (1) Influenza Assessment/Plan: got tamiflu id cnsult prn tylenol for fever Code(s): J11.1 - FLU DUE TO UNIDENTIFIED INFLUENZA VIRUS W OTH RESP MANIFEST (2) Vomiting Assessment/Plan: prn zofran Code(s): R11.10 - VOMITING, UNSPECIFIED Qualifiers: Vomiting type: unspecified Vomiting Intractability: non-intractable Nausea presence: with nausea Qualified Code(s): R11.2 - Nausea with vomiting, unspecified
[2018-11-30 17:42] VITALS: BMI 19.0
[2018-11-30] MEDS ORDERED: OSELTAMIVIR PHOSPHATE 75 MG CAPSULE PO SCH (18:45)
[2018-11-30] MEDS: LATANOPROST 0.005% OPHTH SOLN 2.5ML BOTTLE OU SCH (21:24)
[2018-11-30] MEDS: OSELTAMIVIR PHOSPHATE 6 MG/1 ML PO SCH (22:03)
[2018-12-01] MEDS ORDERED: PT OWN MED DRAWER 7, Y5N ONE (10:18)
[2018-12-01] MEDS: OSELTAMIVIR PHOSPHATE 6 MG/1 ML PO SCH ×2 (10:38→21:43)
[2018-12-01] MEDS: CITALOPRAM HYDROBROMIDE 10 MG TABLET (FP) PO SCH (10:38)
[2018-12-01] MEDS: ASPIRIN COATED 81 MG TABLET.EC PO SCH (10:38)
[2018-12-01] MEDS: HEPARIN NA (PORCINE) 5,000 UNITS/ML 1ML VIAL SQ SCH ×2 (10:38→21:44)
--- NOTE | 2018-12-01 11:48 | PN ---
Progress Note, Physician - Current Medication List Current Medications: Active Medications Aspirin (Ecotrin -) 81 mg PO DAILY [facility] Last Admin: 12/01/18 10:38 Dose: 81 mg Citalopram Hydrobromide (Celexa -) 10 mg PO DAILY [facility] Last Admin: 12/01/18 10:38 Dose: 10 mg Heparin Sodium (Porcine) (Heparin -) 5,000 unit SQ BID [facility] Last Admin: 12/01/18 10:38 Dose: 5,000 unit Latanoprost (Xalatan 0.005% Eye Drops -) 1 drop OU HS [facility] Last Admin: 11/30/18 21:24 Dose: Not Given Non-Formulary Medication (Brinzolamide [Azopt]) 1 drop OU BID [facility] Oseltamivir Phosphate (Tamiflu Oral Suspension -) 75 mg PO BID [facility] Stop: 12/04/18 22:01 Last Admin: 12/01/18 10:38 Dose: 75 mg Timolol Maleate (Timoptic 0.5%) 1 drop OU BID [facility] Last Admin: 11/30/18 21:24 Dose: Not Given - Objective Vital Signs: Vital Signs Temperature 97.3 F L 12/01/18 07:30 Pulse Rate 80 12/01/18 07:30 Respiratory Rate 20 12/01/18 07:30 Blood Pressure 108/62 12/01/18 07:30 O2 Sat by Pulse Oximetry (%) 100 11/30/18 15:30 HENT: Yes: Atraumatic Neck: Yes: Supple Cardiovascular: Yes: Regular Rate and Rhythm Respiratory: Yes: CTA Bilaterally Gastrointestinal: Yes: Normal Bowel Sounds Extremities: Yes: WNL Edema: No Peripheral Pulses WNL: Yes Neurological: Yes: Alert, Oriented Labs: CBC, BMP 11/30/18 09:23 11/30/18 09:23 Problem List - Problems (1) Influenza Assessment/Plan: on tamiflu id cnsult prn tylenol for fever Code(s): J11.1 - FLU DUE TO UNIDENTIFIED INFLUENZA VIRUS W OTH RESP MANIFEST (2) Vomiting Assessment/Plan: prn zofran Code(s): R11.10 - VOMITING, UNSPECIFIED Qualifiers: Vomiting type: unspecified Vomiting Intractability: non-intractable Nausea presence: with nausea Qualified Code(s): R11.2 - Nausea with vomiting, unspecified
[2018-12-01] MEDS: TIMOLOL 0.5% OPHTHALMIC SOL 5 ML BOTTLE OU SCH ×2 (13:08→21:45)
--- NOTE | 2018-12-01 13:46 | PN ---
Progress Note, Physician History of Present Illness: family in room patient improving breathing better - Current Medication List Current Medications: Active Medications Aspirin (Ecotrin -) 81 mg PO DAILY [facility] Last Admin: 12/01/18 10:38 Dose: 81 mg Citalopram Hydrobromide (Celexa -) 10 mg PO DAILY [facility] Last Admin: 12/01/18 10:38 Dose: 10 mg Heparin Sodium (Porcine) (Heparin -) 5,000 unit SQ BID [facility] Last Admin: 12/01/18 10:38 Dose: 5,000 unit Latanoprost (Xalatan 0.005% Eye Drops -) 1 drop OU HS [facility] Last Admin: 11/30/18 21:24 Dose: Not Given Non-Formulary Medication (Brinzolamide [Azopt]) 1 drop OU BID [facility] Oseltamivir Phosphate (Tamiflu Oral Suspension -) 75 mg PO BID [facility] Stop: 12/04/18 22:01 Last Admin: 12/01/18 10:38 Dose: 75 mg Timolol Maleate (Timoptic 0.5%) 1 drop OU BID [facility] Last Admin: 12/01/18 13:08 Dose: 1 drop - Objective Vital Signs: Vital Signs Temperature 97.3 F L 12/01/18 07:30 Pulse Rate 80 12/01/18 07:30 Respiratory Rate 20 12/01/18 07:30 Blood Pressure 108/62 12/01/18 07:30 O2 Sat by Pulse Oximetry (%) 100 11/30/18 15:30 Constitutional: Yes: No Distress, Calm Cardiovascular: Yes: Regular Rate and Rhythm Respiratory: Yes: Regular, CTA Bilaterally Gastrointestinal: Yes: Normal Bowel Sounds, Soft Musculoskeletal: Yes: WNL Extremities: Yes: WNL Neurological: Yes: Alert, Oriented Psychiatric: Yes: Alert, Oriented Labs: CBC, BMP 11/30/18 09:23 11/30/18 09:23 Assessment/Plan Problem List - Problems (1) Influenza Code(s): J11.1 - FLU DUE TO UNIDENTIFIED INFLUENZA VIRUS W OTH RESP MANIFEST (2) Vomiting Code(s): R11.10 - VOMITING, UNSPECIFIED Qualifiers: Vomiting type: unspecified Vomiting Intractability: non-intractable Nausea presence: with nausea Qualified Code(s): R11.2 - Nausea with vomiting, unspecified weakness plan continue tamflu nutrition rest as per the team
[2018-12-01] MEDS: LATANOPROST 0.005% OPHTH SOLN 2.5ML BOTTLE OU SCH (21:45)
[2018-12-02] MEDS ORDERED: PT OWN MED DRAWER 7, Y5N ONE (10:27)
[2018-12-02] MEDS: CITALOPRAM HYDROBROMIDE 10 MG TABLET (FP) PO SCH (10:38)
[2018-12-02] MEDS: ASPIRIN COATED 81 MG TABLET.EC PO SCH (10:38)
[2018-12-02] MEDS: HEPARIN NA (PORCINE) 5,000 UNITS/ML 1ML VIAL SQ SCH ×2 (10:38→21:30)
[2018-12-02] MEDS: OSELTAMIVIR PHOSPHATE 6 MG/1 ML PO SCH ×2 (10:39→21:30)
[2018-12-02] MEDS: TIMOLOL 0.5% OPHTHALMIC SOL 5 ML BOTTLE OU SCH ×2 (10:41→21:33)
--- NOTE | 2018-12-02 15:02 | PN ---
Progress Note, Physician History of Present Illness: patient continues to improve daughter in the room looks much better - Current Medication List Current Medications: Active Medications Aspirin (Ecotrin -) 81 mg PO DAILY [facility] Last Admin: 12/02/18 10:38 Dose: 81 mg Citalopram Hydrobromide (Celexa -) 10 mg PO DAILY [facility] Last Admin: 12/02/18 10:38 Dose: 10 mg Heparin Sodium (Porcine) (Heparin -) 5,000 unit SQ BID [facility] Last Admin: 12/02/18 10:38 Dose: 5,000 unit Latanoprost (Xalatan 0.005% Eye Drops -) 1 drop OU HS [facility] Last Admin: 12/01/18 21:45 Dose: 1 drop Non-Formulary Medication (Brinzolamide [Azopt]) 1 drop OU BID [facility] Oseltamivir Phosphate (Tamiflu Oral Suspension -) 75 mg PO BID [facility] Stop: 12/04/18 22:01 Last Admin: 12/02/18 10:39 Dose: 75 mg Timolol Maleate (Timoptic 0.5%) 1 drop OU BID [facility] Last Admin: 12/02/18 10:41 Dose: 1 drop - Objective Vital Signs: Vital Signs Temperature 97.7 F 12/02/18 09:00 Pulse Rate 82 12/02/18 09:00 Respiratory Rate 18 12/02/18 09:00 Blood Pressure 146/76 12/02/18 09:00 O2 Sat by Pulse Oximetry (%) 100 12/01/18 21:00 Constitutional: Yes: No Distress, Calm Cardiovascular: Yes: Regular Rate and Rhythm Respiratory: Yes: Regular, CTA Bilaterally Gastrointestinal: Yes: Normal Bowel Sounds, Soft Musculoskeletal: Yes: WNL Extremities: Yes: WNL Neurological: Yes: Alert, Oriented Psychiatric: Yes: Alert, Oriented Labs: CBC, BMP 11/30/18 09:23 11/30/18 09:23 Assessment/Plan Problem List - Problems (1) Influenza Code(s): J11.1 - FLU DUE TO UNIDENTIFIED INFLUENZA VIRUS W OTH RESP MANIFEST (2) Vomiting Code(s): R11.10 - VOMITING, UNSPECIFIED Qualifiers: Vomiting type: unspecified Vomiting Intractability: non-intractable Nausea presence: with nausea Qualified Code(s): R11.2 - Nausea with vomiting, unspecified weakness plan continue tamflu finish the course nutrition rest as per the team
--- NOTE | 2018-12-02 16:07 | PN ---
Progress Note, Physician - Current Medication List Current Medications: Active Medications Aspirin (Ecotrin -) 81 mg PO DAILY [facility] Last Admin: 12/02/18 10:38 Dose: 81 mg Citalopram Hydrobromide (Celexa -) 10 mg PO DAILY [facility] Last Admin: 12/02/18 10:38 Dose: 10 mg Heparin Sodium (Porcine) (Heparin -) 5,000 unit SQ BID [facility] Last Admin: 12/02/18 10:38 Dose: 5,000 unit Latanoprost (Xalatan 0.005% Eye Drops -) 1 drop OU HS [facility] Last Admin: 12/01/18 21:45 Dose: 1 drop Non-Formulary Medication (Brinzolamide [Azopt]) 1 drop OU BID [facility] Oseltamivir Phosphate (Tamiflu Oral Suspension -) 75 mg PO BID [facility] Stop: 12/04/18 22:01 Last Admin: 12/02/18 10:39 Dose: 75 mg Timolol Maleate (Timoptic 0.5%) 1 drop OU BID [facility] Last Admin: 12/02/18 10:41 Dose: 1 drop - Objective Vital Signs: Vital Signs Temperature 97.7 F 12/02/18 09:00 Pulse Rate 82 12/02/18 09:00 Respiratory Rate 18 12/02/18 09:00 Blood Pressure 146/76 12/02/18 09:00 O2 Sat by Pulse Oximetry (%) 100 12/01/18 21:00 Constitutional: Yes: No Distress HENT: Yes: Atraumatic Neck: Yes: Supple Cardiovascular: Yes: Regular Rate and Rhythm Respiratory: Yes: CTA Bilaterally Gastrointestinal: Yes: Normal Bowel Sounds Extremities: Yes: WNL Edema: No Peripheral Pulses WNL: Yes Neurological: Yes: Alert, Oriented Labs: CBC, BMP 11/30/18 09:23 11/30/18 09:23 Problem List - Problems (1) Influenza Assessment/Plan: on tamiflu id cnsult prn tylenol for fever Code(s): J11.1 - FLU DUE TO UNIDENTIFIED INFLUENZA VIRUS W OTH RESP MANIFEST (2) Vomiting Assessment/Plan: prn zofran Code(s): R11.10 - VOMITING, UNSPECIFIED Qualifiers: Vomiting type: unspecified Vomiting Intractability: non-intractable Nausea presence: with nausea Qualified Code(s): R11.2 - Nausea with vomiting, unspecified
[2018-12-02] MEDS: LATANOPROST 0.005% OPHTH SOLN 2.5ML BOTTLE OU SCH (21:33)
[2018-12-03] MEDS ORDERED: PT OWN MED DRAWER 7, Y5N ONE (11:21)
[2018-12-03] MEDS: CITALOPRAM HYDROBROMIDE 10 MG TABLET (FP) PO SCH (11:44)
[2018-12-03] MEDS: ASPIRIN COATED 81 MG TABLET.EC PO SCH (11:44)
[2018-12-03] MEDS: HEPARIN NA (PORCINE) 5,000 UNITS/ML 1ML VIAL SQ SCH ×2 (11:44→23:50)
[2018-12-03] MEDS: OSELTAMIVIR PHOSPHATE 6 MG/1 ML PO SCH ×3 (11:48→23:50)
[2018-12-03] MEDS: TIMOLOL 0.5% OPHTHALMIC SOL 5 ML BOTTLE OU SCH ×2 (11:48→23:51)
--- NOTE | 2018-12-03 12:53 | PN ---
Progress Note, Physician History of Present Illness: doing better no complaints daughter in room - Current Medication List Current Medications: Active Medications Aspirin (Ecotrin -) 81 mg PO DAILY [facility] Last Admin: 12/03/18 11:44 Dose: 81 mg Citalopram Hydrobromide (Celexa -) 10 mg PO DAILY [facility] Last Admin: 12/03/18 11:44 Dose: 10 mg Heparin Sodium (Porcine) (Heparin -) 5,000 unit SQ BID [facility] Last Admin: 12/03/18 11:44 Dose: 5,000 unit Latanoprost (Xalatan 0.005% Eye Drops -) 1 drop OU HS [facility] Last Admin: 12/02/18 21:33 Dose: 1 drop Non-Formulary Medication (Brinzolamide [Azopt]) 1 drop OU BID [facility] Oseltamivir Phosphate (Tamiflu Oral Suspension -) 75 mg PO BID [facility] Stop: 12/04/18 22:01 Last Admin: 12/03/18 11:48 Dose: 75 mg Timolol Maleate (Timoptic 0.5%) 1 drop OU BID [facility] Last Admin: 12/03/18 11:48 Dose: 1 drop - Objective Vital Signs: Vital Signs Temperature 97.6 F 12/03/18 06:00 Pulse Rate 79 12/03/18 06:00 Respiratory Rate 18 12/02/18 21:00 Blood Pressure 149/70 12/03/18 06:00 O2 Sat by Pulse Oximetry (%) 96 12/02/18 21:00 Constitutional: Yes: No Distress, Calm Cardiovascular: Yes: Regular Rate and Rhythm Respiratory: Yes: Regular, CTA Bilaterally Gastrointestinal: Yes: Normal Bowel Sounds, Soft Musculoskeletal: Yes: WNL Extremities: Yes: WNL Neurological: Yes: Alert, Oriented Psychiatric: Yes: Alert, Oriented Labs: CBC, BMP 11/30/18 09:23 11/30/18 09:23 Assessment/Plan Problem List - Problems (1) Influenza Code(s): J11.1 - FLU DUE TO UNIDENTIFIED INFLUENZA VIRUS W OTH RESP MANIFEST (2) Vomiting Code(s): R11.10 - VOMITING, UNSPECIFIED Qualifiers: Vomiting type: unspecified Vomiting Intractability: non-intractable Nausea presence: with nausea Qualified Code(s): R11.2 - Nausea with vomiting, unspecified weakness plan continue tamflu finish the course nutrition rest as per the team
--- NOTE | 2018-12-03 19:16 | PN ---
Progress Note, Physician History of Present Illness: feeling good - Current Medication List Current Medications: Active Medications Aspirin (Ecotrin -) 81 mg PO DAILY [facility] Last Admin: 12/03/18 11:44 Dose: 81 mg Citalopram Hydrobromide (Celexa -) 10 mg PO DAILY [facility] Last Admin: 12/03/18 11:44 Dose: 10 mg Heparin Sodium (Porcine) (Heparin -) 5,000 unit SQ BID [facility] Last Admin: 12/03/18 11:44 Dose: 5,000 unit Latanoprost (Xalatan 0.005% Eye Drops -) 1 drop OU HS [facility] Last Admin: 12/02/18 21:33 Dose: 1 drop Non-Formulary Medication (Brinzolamide [Azopt]) 1 drop OU BID [facility] Oseltamivir Phosphate (Tamiflu Oral Suspension -) 75 mg PO BID [facility] Stop: 12/04/18 22:01 Last Admin: 12/03/18 11:48 Dose: 75 mg Timolol Maleate (Timoptic 0.5%) 1 drop OU BID [facility] Last Admin: 12/03/18 11:48 Dose: 1 drop - Objective Vital Signs: Vital Signs Temperature 98.0 F 12/03/18 14:55 Pulse Rate 78 12/03/18 14:55 Respiratory Rate 20 12/03/18 14:55 Blood Pressure 162/78 12/03/18 14:55 O2 Sat by Pulse Oximetry (%) 96 12/03/18 09:00 Constitutional: Yes: No Distress HENT: Yes: Atraumatic Neck: Yes: Supple Cardiovascular: Yes: Regular Rate and Rhythm Respiratory: Yes: CTA Bilaterally Extremities: Yes: WNL Edema: No Neurological: Yes: Alert, Oriented Labs: CBC, BMP 11/30/18 09:23 11/30/18 09:23 Problem List - Problems (1) Influenza Assessment/Plan: on tamiflu id cnsult prn tylenol for fever Code(s): J11.1 - FLU DUE TO UNIDENTIFIED INFLUENZA VIRUS W OTH RESP MANIFEST (2) Vomiting Assessment/Plan: prn zofran Code(s): R11.10 - VOMITING, UNSPECIFIED Qualifiers: Vomiting type: unspecified Vomiting Intractability: non-intractable Nausea presence: with nausea Qualified Code(s): R11.2 - Nausea with vomiting, unspecified
[2018-12-03] MEDS: LATANOPROST 0.005% OPHTH SOLN 2.5ML BOTTLE OU SCH (23:51)
[2018-12-04] MEDS: OSELTAMIVIR PHOSPHATE 6 MG/1 ML PO SCH ×2 (11:00→23:05)
[2018-12-04] MEDS: HEPARIN NA (PORCINE) 5,000 UNITS/ML 1ML VIAL SQ SCH ×2 (11:00→22:53)
[2018-12-04] MEDS: ASPIRIN COATED 81 MG TABLET.EC PO SCH (11:01)
[2018-12-04] MEDS: TIMOLOL 0.5% OPHTHALMIC SOL 5 ML BOTTLE OU SCH ×2 (11:02→23:05)
[2018-12-04] MEDS: CITALOPRAM HYDROBROMIDE 10 MG TABLET (FP) PO SCH (11:03)
--- NOTE | 2018-12-04 13:37 | PN ---
Progress Note, Physician History of Present Illness: patient stable no new issues - Current Medication List Current Medications: Active Medications Aspirin (Ecotrin -) 81 mg PO DAILY [facility] Last Admin: 12/04/18 11:01 Dose: 81 mg Citalopram Hydrobromide (Celexa -) 10 mg PO DAILY [facility] Last Admin: 12/04/18 11:03 Dose: 10 mg Heparin Sodium (Porcine) (Heparin -) 5,000 unit SQ BID [facility] Last Admin: 12/04/18 11:00 Dose: 5,000 unit Latanoprost (Xalatan 0.005% Eye Drops -) 1 drop OU HS [facility] Last Admin: 12/03/18 23:51 Dose: 1 drop Non-Formulary Medication (Brinzolamide [Azopt]) 1 drop OU BID [facility] Oseltamivir Phosphate (Tamiflu Oral Suspension -) 75 mg PO BID [facility] Stop: 12/04/18 22:01 Last Admin: 12/04/18 11:00 Dose: 75 mg Timolol Maleate (Timoptic 0.5%) 1 drop OU BID [facility] Last Admin: 12/04/18 11:02 Dose: 1 drop - Objective Vital Signs: Vital Signs Temperature 98.7 F 12/04/18 06:00 Pulse Rate 81 12/04/18 06:00 Respiratory Rate 18 12/04/18 06:00 Blood Pressure 128/76 12/04/18 06:00 O2 Sat by Pulse Oximetry (%) 96 12/03/18 21:00 Constitutional: Yes: No Distress, Calm Cardiovascular: Yes: Regular Rate and Rhythm Respiratory: Yes: Regular, CTA Bilaterally Gastrointestinal: Yes: Normal Bowel Sounds, Soft Musculoskeletal: Yes: WNL Extremities: Yes: WNL Neurological: Yes: Alert, Oriented Psychiatric: Yes: Alert, Oriented Labs: CBC, BMP 11/30/18 09:23 11/30/18 09:23 Assessment/Plan Problem List - Problems (1) Influenza Code(s): J11.1 - FLU DUE TO UNIDENTIFIED INFLUENZA VIRUS W OTH RESP MANIFEST (2) Vomiting Code(s): R11.10 - VOMITING, UNSPECIFIED Qualifiers: Vomiting type: unspecified Vomiting Intractability: non-intractable Nausea presence: with nausea Qualified Code(s): R11.2 - Nausea with vomiting, unspecified weakness plan continue tamflu finish the course nutrition rest as per the team
--- NOTE | 2018-12-04 17:02 | PN ---
Progress Note, Physician - Current Medication List Current Medications: Active Medications Aspirin (Ecotrin -) 81 mg PO DAILY [facility] Last Admin: 12/04/18 11:01 Dose: 81 mg Citalopram Hydrobromide (Celexa -) 10 mg PO DAILY [facility] Last Admin: 12/04/18 11:03 Dose: 10 mg Heparin Sodium (Porcine) (Heparin -) 5,000 unit SQ BID [facility] Last Admin: 12/04/18 11:00 Dose: 5,000 unit Latanoprost (Xalatan 0.005% Eye Drops -) 1 drop OU HS [facility] Last Admin: 12/03/18 23:51 Dose: 1 drop Non-Formulary Medication (Brinzolamide [Azopt]) 1 drop OU BID [facility] Oseltamivir Phosphate (Tamiflu Oral Suspension -) 75 mg PO BID [facility] Stop: 12/04/18 22:01 Last Admin: 12/04/18 11:00 Dose: 75 mg Timolol Maleate (Timoptic 0.5%) 1 drop OU BID [facility] Last Admin: 12/04/18 11:02 Dose: 1 drop - Objective Vital Signs: Vital Signs Temperature 98.2 F 12/04/18 14:39 Pulse Rate 75 12/04/18 14:39 Respiratory Rate 18 12/04/18 14:39 Blood Pressure 115/59 L 12/04/18 14:39 O2 Sat by Pulse Oximetry (%) 96 12/03/18 21:00 Constitutional: Yes: No Distress HENT: Yes: Atraumatic Neck: Yes: Supple Cardiovascular: Yes: Regular Rate and Rhythm Respiratory: Yes: CTA Bilaterally Gastrointestinal: Yes: Normal Bowel Sounds Extremities: Yes: WNL Edema: No Peripheral Pulses WNL: Yes Neurological: Yes: Alert, Oriented Labs: CBC, BMP 11/30/18 09:23 11/30/18 09:23 Problem List - Problems (1) Influenza Assessment/Plan: on tamiflu id cnsult prn tylenol for fever Code(s): J11.1 - FLU DUE TO UNIDENTIFIED INFLUENZA VIRUS W OTH RESP MANIFEST (2) Vomiting Assessment/Plan: prn zofran Code(s): R11.10 - VOMITING, UNSPECIFIED Qualifiers: Vomiting type: unspecified Vomiting Intractability: non-intractable Nausea presence: with nausea Qualified Code(s): R11.2 - Nausea with vomiting, unspecified
[2018-12-04] MEDS: LATANOPROST 0.005% OPHTH SOLN 2.5ML BOTTLE OU SCH (22:54)
[2018-12-05 06:05] VITALS: BP 120/67; PULSE 71; TEMP 99.1
[2018-12-05 07:07] LABS: BASO % 0.3 % (0-2.0); EOS % 0.4 % (0-4.5); HEMATOCRIT 36.2 % (32.4-45.2); HEMOGLOBIN 12.2 GM/dL (10.7-15.3); LYMPH % 30.2 % (8-40); MCH 29.3 pg (25.7-33.7); MCHC 33.7 g/dl (32.0-36.0); MEAN CELL VOLUME 87.1 fl (80-96); MEAN PLT VOLUME 7.7 fl (7.5-11.1); MONO % 7.2 % (3.8-10.2); NEUT % 61.9 % (42.8-82.8); PLATELET COUNT 299 K/MM3 (134-434); RBC 4.15 M/mm3 (3.60-5.2); RDW 15.4 % (11.6-15.6)
[2018-12-05 09:02] LABS: ALBUMIN 2.9 g/dl (3.4-5.0); ALK PHOS 97 U/L (45-117); ANION GAP 9 MMOL/L (8-16); BILIRUBIN,TOTAL 0.7 mg/dL (0.2-1); CALCIUM 8.6 mg/dL (8.5-10.1); CHLORIDE 99 mmol/L (98-107); CO2 28 mmol/L (21-32); CREATININE 0.4 mg/dL (0.55-1.3); GLUCOSE,RANDOM 116 mg/dL (74-106); POTASSIUM 3.5 mmol/L (3.5-5.1); SGPT/ALT 15 U/L (13-61); SODIUM 136 mmol/L (136-145); TOT PROT 6.3 g/dl (6.4-8.2)
[2018-12-05] MEDS: ASPIRIN COATED 81 MG TABLET.EC PO SCH (10:02)
[2018-12-05] MEDS: HEPARIN NA (PORCINE) 5,000 UNITS/ML 1ML VIAL SQ SCH (10:02)
[2018-12-05] MEDS: TIMOLOL 0.5% OPHTHALMIC SOL 5 ML BOTTLE OU SCH (10:02)
[2018-12-05] MEDS: CITALOPRAM HYDROBROMIDE 10 MG TABLET (FP) PO SCH (10:02)
--- NOTE | 2018-12-05 12:32 | DS ---
Physical Examination Vital Signs: Vital Signs Temperature 99.1 F 12/05/18 06:00 Pulse Rate 71 12/05/18 06:00 Respiratory Rate 18 12/05/18 06:00 Blood Pressure 120/67 12/05/18 06:00 O2 Sat by Pulse Oximetry (%) 98 12/05/18 09:00 Constitutional: Yes: No Distress HENT: Yes: Atraumatic Neck: Yes: Supple Cardiovascular: Yes: Regular Rate and Rhythm Respiratory: Yes: CTA Bilaterally Gastrointestinal: Yes: Normal Bowel Sounds Extremities: Yes: WNL Edema: No Peripheral Pulses WNL: Yes Neurological: Yes: Alert, Oriented Labs: CBC, BMP 12/05/18 06:00 12/05/18 06:00 Discharge Summary Reason For Visit: INFLUENZA/VOMITING Condition: Guarded - Instructions Disposition: HOME - Home Medications Comprehensive Discharge Medication List: Ambulatory Orders Aspirin [Ecotrin] 81 mg PO DAILY 01/04/18 Alendronate Sodium [Binosto] 10 mg PO DAILY 08/16/18 Citalopram Hydrobromide [Celexa -] 10 mg PO DAILY 08/16/18 Ascorbic Acid [Vitamin C] 500 mg PO DAILY 11/29/18 Brinzolamide [Azopt] 1 drop OU BID 11/29/18 Calcium Carbonate [Calcium] 500 mg PO DAILY 11/29/18 Cholecalciferol (Vitamin D3) [Vitamin D3] 2,000 unit PO DAILY 11/29/18 Lactobacillus Acidophilus [Probiotic] 1 each PO DAILY 11/29/18 Latanoprost 0.005% Eye Drops [Xalatan 0.005% Eye Drops -] 1 drop OU HS 11/29/18 Timolol 0.5% [Timoptic 0.5%] 1 drop OU BID 11/29/18 Vitamin B Complex [B Complex] 1 each PO DAILY 11/29/18 dc
== END 2018-12-05 10:18 | disposition home or self-care (01) | DRG 195 ==
LOC: JER 15:49 → JERBED 19:09 → J6S 11-30 15:27
PROVIDERS: ADMIT Internal Medicine; ATTEND Internal Medicine
DX: J09.X2 Influenza due to identified novel influenza A virus with other respiratory manifestations (principal); R11.2 Nausea with vomiting, unspecified; F03.90 Unspecified dementia, unspecified severity, without behavioral disturbance, psychotic disturbance, mood disturbance, and anxiety; I25.10 Atherosclerotic heart disease of native coronary artery without angina pectoris
CPT/HCPCS: 36415; 71045-TC-FY; 80053; 81003; 81015; 83735; 84484; 85025; 87086; 87804; 93005; 93010; 97116-GP; 97161-GP; 99284-25; G9035; J1644

== ENCOUNTER 2018-12-16 19:08 | Inpatient (IN) | payer OTHER, MEDICARE ==
--- NOTE | 2018-12-16 19:29 | PDOC ---
Attending Attestation - HPI HPI: 12/16/18 21:06 The patient is a year old female, with a significant past medical history of CAD , HTN, HLD, hyperthyroidism, osteoporosis, dementia, and frequent frequent falls , who presents to the emergency department s/p unwitnessed fall with pain to the right hip. 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 Family is unaware if she hit her head and noticed her on the ground onto her right side. Patient is a poor historian thus, history was obtained via daughter at bedside. Allergies: NKDA Social history: Nonsmoker. Denies EtOH use and recreational drug use. Primary Care Physician: Dr. Riojas ([facility]) - Physicial Exam PE: 12/16/18 21:06 GENERAL: Awake, alert, in no acute distress HEAD: No signs of trauma EYES: PERRLA, EOMI, sclera anicteric, conjunctiva clear ENT: Auricles normal inspection, hearing grossly normal, nares patent, oropharynx clear without exudates. Moist mucosa NECK: Normal ROM, supple, no lymphadenopathy, JVD, or masses +LUNGS: Chronic crackles to the left lung. HEART: Regular rate and rhythm, normal S1 and S2, no murmurs, rubs or gallops ABDOMEN: Soft, nontender, normoactive bowel sounds. No guarding, no rebound. No masses +EXTREMITIES: Tenderness to the right hip. +NEUROLOGICAL: Demented. Cranial nerves II through XII grossly intact. Normal speech SKIN: Warm, Dry, normal turgor, no rashes or lesions noted. - Medical Decision Making 12/16/18 22:04 Call placed to ortho extractions technologist, made aware NAHOMY Lacy covering, awaiting call back. <Kacie Roger - Last Filed: 12/16/18 22:04> - Resident Resident Name: J Luis Fagan - ED Attending Attestation I have performed the following: I have examined & evaluated the patient, The case was reviewed & discussed with the resident, I agree w/resident's findings & plan - Medical Decision Making 12/16/18 21:30 Pt has a UTI and syncope and elevated WBC. 12/16/18 21:54 Chem is normal and cardiac enzyme is normal. 12/16/18 23:14 Pt has a right hip fracture. Daughter states that Dr. Wiley took care of her other hip. Today Dr. Wiley is being covered by Dr. Fisher's service. Dr. Henderson'addison [facility] is aware and they will consult on and treat the patient. Pt has been admitted to the hospitalist team. She is comfotable <Rae Bhatti - Last Filed: 12/16/18 23:18> Attestations - Attestations 12/16/18 21:06 Documentation prepared by Kacie Roger, acting as director medical economics for Rae Bhatti MD. <Kacie Roger - Last Filed: 12/16/18 22:04>
[2018-12-16] MEDS ORDERED: LORazepam 1 MG TABLET PO ONE (20:20)
--- NOTE | 2018-12-16 20:20 | PDOC ---
History of Present Illness - General Chief Complaint: Pain, Acute Stated Complaint: FALL Time Seen by Provider: 12/16/18 19:22 History Source: Patient, Family (daughter) Exam Limitations: No Limitations - History of Present Illness Initial Comments: 12/16/18 20:09 88 yo female pmh of CAD, HTN, HLD, hyperthyroidism, osteoporosis, dementia and frequent frequent falls (not on AC, is on ASA) presents to the ED with daughter (provides HPI) for an unwitnessed fall. Pt reportedly sitting in her chair, daughter heard a thump and found her mother on carpeted floor on her right side. Denies seeing blood or signs of head trauma, she was alert, AOX2 and at baseline mentation. Only complaint is pain in the right hip. Denies recent complaints at home such as F/C, CP, SOB, abdominal pain. Of note, pt recently admitted for positive influenza and DC home after a 6 day stay. Pt requires 24 hour home health aid for all ADLs. Past History - Past Medical History Allergies/Adverse Reactions: Allergies Allergy/AdvReac Type Severity Reaction Status Date / Time No Known Allergies Allergy Verified 08/16/18 14:19 Home Medications: Ambulatory Orders Aspirin [Ecotrin] 81 mg PO DAILY 01/04/18 Alendronate Sodium [Binosto] 10 mg PO DAILY 08/16/18 Citalopram Hydrobromide [Celexa -] 10 mg PO DAILY 08/16/18 Ascorbic Acid [Vitamin C] 500 mg PO DAILY 11/29/18 Brinzolamide [Azopt] 1 drop OU BID 11/29/18 Calcium Carbonate [Calcium] 500 mg PO DAILY 11/29/18 Cholecalciferol (Vitamin D3) [Vitamin D3] 2,000 unit PO DAILY 11/29/18 Lactobacillus Acidophilus [Probiotic] 1 each PO DAILY 11/29/18 Latanoprost 0.005% Eye Drops [Xalatan 0.005% Eye Drops -] 1 drop OU HS 11/29/18 Timolol 0.5% [Timoptic 0.5%] 1 drop OU BID 11/29/18 Vitamin B Complex [B Complex] 1 each PO DAILY 11/29/18 Anemia: No COPD: No Dementia: Yes GI Disorders: Yes (COLONIC POLYPS) Hypercholesterolemia: Yes Thyroid Disease: Yes (Hyperthyroid) - Surgical History Orthopedic Surgery: Yes (Rt. hip surgery; Rt. shoulder injury) - Immunization History Immunization Up to Date: No - Suicide/Smoking/Psychosocial Hx Smoking Status: No Smoking History: Never smoked Have you smoked in the past 12 months: No Number of Cigarettes Smoked Daily: 0 Hx Alcohol Use: No Drug/Substance Use Hx: No Substance Use Type: None Hx Substance Use Treatment: No Review of Systems - Review of Systems Able to Perform ROS?: No (dementia) *Physical Exam - Vital Signs Last Vital Signs Temp Pulse Resp BP Pulse Ox 99.1 F 91 H 20 147/86 97 12/16/18 19:15 12/16/18 19:15 12/16/18 19:15 12/16/18 19:15 12/16/18 19:15 - Physical Exam General Appearance: Yes: Nourished, Appropriately Dressed, Apparent Distress ( laying on right side states she can not lay on back due to pain) HEENT: positive: EOMI, KAILA Neck: positive: Supple. negative: Tender midline Respiratory/Chest: positive: Lungs Clear. negative: Respiratory Distress, Crackles, Rales, Rhonchi, Stridor, Wheezing Cardiovascular: positive: Regular Rate. negative: Edema, JVD, Murmur Vascular Pulses: Dorsalis-Pedis (R): 4+, Doralis-Pedis (L): 4+ Gastrointestinal/Abdominal: positive: Flat, Soft. negative: Pulsatile Mass, Distended, Guarding, Rebound, Tenderness Musculoskeletal: negative: CVA Tenderness Extremity: positive: Normal Capillary Refill, Other (pt moving RLE spontaneously , pulsess and sensation equal bilateral LE). negative: Coldness, Cyanosis, Delayed Capillary Refill, Pedal Edema Integumentary: positive: Normal Color, Dry, Warm Neurologic: positive: Alert, Normal Mood/Affect, Normal Response. negative: Fully Oriented Moderate Sedation - Procedure Monitoring Vital Signs: Procedure Monitoring Vital Signs Temperature 99.1 F 12/16/18 19:15 Pulse Rate 91 H 12/16/18 19:15 Respiratory Rate 20 12/16/18 19:15 Blood Pressure 147/86 12/16/18 19:15 O2 Sat by Pulse Oximetry (%) 97 12/16/18 19:15 ED Treatment Course - LABORATORY CBC & Chemistry Diagram: 12/22/18 07:00 12/22/18 07:00 - RADIOLOGY Radiology Studies Ordered: Category Date Time Status CERVICAL SPINE CT W/O CONTR [CT] Stat CT Scan 12/16/18 19:[address] WITHOUT CONTRAST [CT] Stat CT Scan 12/16/18 19:59 Ordered CHEST X-RAY PORTABLE* [RAD] Stat Radiology 12/16/18 20:01 Ordered HIP & PELVIS-RIGHT [RAD] Stat Radiology 12/16/18 20:01 Ordered Medical Decision Making - Medical Decision Making 88 yo female presents to ED after unwitnessed fall and laying on her right side Vitals WNL CBC shows leukocytosis UA shows UTI with 52 WBC Ceftriaxone ordered 12/16/18 22:[address] Fisher's PA, Donavon who confirms right hip fracture. Would like pt admitted, stop ASA and NPO after midnight. *DC/Admit/Observation/Transfer Diagnosis at time of Disposition: Hip fracture, UTI (urinary tract infection) - Discharge Dispostion Disposition: [facility] Condition at time of disposition: Improved Decision to Admit order: Yes - Referrals - Patient Instructions - Post Discharge Activity
[2018-12-16] MEDS ORDERED: LORazepam 0.5 MG TABLET ONE (20:23)
[2018-12-16] MEDS ORDERED: ACETAMINOPHEN 1000 MG/100 ML VIAL (NON FORMULARY) IVPB ONE (20:23)
[2018-12-16] MEDS ORDERED: ACETAMINOPHEN INJECTION 100 ML IVPB ONE (20:38)
[2018-12-16 20:53] LABS: BASO % 0.9 % (0-2.0); EOS % 0.7 % (0-4.5); HEMATOCRIT 36.7 % (32.4-45.2); HEMOGLOBIN 12.6 GM/dL (10.7-15.3); MCH 30.1 pg (25.7-33.7); MCHC 34.4 g/dl (32.0-36.0); MEAN CELL VOLUME 87.5 fl (80-96); MEAN PLT VOLUME 6.9 fl (7.5-11.1); MONO % 4.3 % (3.8-10.2); NEUT % 75.1 % (42.8-82.8); PLATELET COUNT 427 K/MM3 (134-434); WHITE BLOOD COUNT 11.8 K/mm3 (4.0-10.0)
[2018-12-16 21:11] LABS: INR 0.97 (0.83-1.09); PROTHROMBIN TIME (PATIENT) 11.5 SEC (9.7-13.0)
[2018-12-16 21:14] LABS: ACTIVATED PTT 27.2 SECONDS (25.2-36.5)
[2018-12-16 21:23] LABS: URINE APPEARANCE CLOUDY; URINE BILIRUBIN NEGATIVE (<2.0 mg/dL); URINE COLOR AMBER; URINE GLUCOSE (UA) NEGATIVE (NEGATIVE); URINE KETONE 1+ (NEGATIVE); URINE LEUK ESTERASE 2+ (NEGATIVE); URINE NITRITE NEGATIVE (NEGATIVE); URINE PROTEIN NEGATIVE (NEGATIVE); URINE UROBILINOGEN NEGATIVE mg/dL (0.2-1.0)
[2018-12-16 21:28] LABS: EPI CELLS RARE /HPF (FEW); URINE BACTERIA RARE /hpf (NONE SEEN); URINE MUCUS RARE
[2018-12-16] MEDS ORDERED: CEFTRIAXONE 1,000 MG in DEXTROSE 5%-WATER - 50 ML IVPB ONE (21:29)
[2018-12-16 21:33] LABS: ALBUMIN 3.5 g/dl (3.4-5.0); ALK PHOS 108 U/L (45-117); ANION GAP 9 MMOL/L (8-16); BILIRUBIN,TOTAL 0.4 mg/dL (0.2-1); BLOOD UREA NITROGEN 14 mg/dL (7-18); CHLORIDE 98 mmol/L (98-107); CO2 25 mmol/L (21-32); CREATININE 0.5 mg/dL (0.55-1.3); GLUCOSE,RANDOM 138 mg/dL (74-106); POTASSIUM 4.3 mmol/L (3.5-5.1); SGOT/AST 18 U/L (15-37); SGPT/ALT 18 U/L (13-61); SODIUM 132 mmol/L (136-145); TOT PROT 7.4 g/dl (6.4-8.2)
[2018-12-16] MEDS ORDERED: CEFTRIAXONE 1 GM/50 ML BAG ONE (23:05)
--- NOTE | 2018-12-17 | PN ---
Teaching Attending Note Name of Resident: Freddie Subramanian ATTENDING PHYSICIAN STATEMENT I saw and evaluated the patient. I reviewed the resident's note and discussed the case with the resident. I agree with the resident's findings and plan as documented. SUBJECTIVE: Seen and examined; please refer to resident note for further historical information. Briefly, this is a 88 y/o CF with a PMH significant for CAD, HTN, HLD, hyperthyroid, frequent falls, dementia. Unfortunately the patient is a poor historian and she is awake and oriented to self but speaking nonsensically and cannot provide us with further history other than she is in some discomfort. Family not present to speak with us, but they did inform ER about the history. She had an unwitnessed fall in her living room to her R-side. She had an admission last year for a L-hip fracture with similar mechanism of action ,. Unknown if she truly syncopized this time or if it was mechanical. She was seen by Dr. Arcos at that time who recommended treating her UTI; she has a UA suggestive of UTI and cannot confirm or deny sx today. She has a slight white count but is afebrile and hemodynamically stable. Recently DCd for influenza. 10 sys ROS done and negative aside from HPI PMH, PSH, Family hx, Social hx reviewed Medications reviewed; pending reconciliation (ASA 81mg, Alendronate, citalopram , vitamins) OBJECTIVE: VS, labs, imaging reviewed Mild distress 2/2 discomfort, AAO, resting in bed NC AT EOMI PERRLA RRR s1/2 no mgr Lungs CTAB, w/ sym exp NT ND +BS CN2-12 wnl, no fnd R-leg externally rotated; neurovascularly in tact XR shows R-sided hip fx and L-sided one with old repair ASSESSMENT AND PLAN: Patient is a 88 y/o female presenting with unwitnessed fall and hip pain found to have fracture. Questionable element of syncope with likely UTI. 1) Acute R-Hip fx -Ultimate management per ortho. Pain control with IV APAP and PRN MSO4. Bowel regemine post op. DVT px. Will likely need rehab so will involve case management. Dr. Fisher has been contacted who is covering for her prior surgeon. 2) Acute cystitis -IV ceftriaxone; followup cultures. Not septic 3) Syncope vs mechanical fall -Unwitnessed; she has a history of mechanical falls but given her PMH could have syncopized. History limited. -Holding off on true orthostatics due to #1; ivf until sgy -EKG reviewed; check echo. Consider carotid doppler. Fall precautions. CT head reviewed; pending final report 4) Hx CAD -Documented; hold ASA 5) Hx Osteoporosis -Contribution to presenting problem noted; home meds reconciled and close FU with PCP recommended 6) Dementia -Watch for sundowning, discuss goals of care 7) HTN -Off meds now; monitor and treat if needed. Medication changes from 2018 DCS noted
--- NOTE | 2018-12-17 01:31 | HP ---
CHIEF COMPLAINT: Fall PCP: HISTORY OF PRESENT ILLNESS: 88 y/o F w/PMH CAD, HTN, HLD, hyperthyroidism, OA, dementia, frequent falls presents to the ER after unwitnessed fall. Pt is poor historian and family was not at bedside during interview. Pt was not able to give history and does not remember the events of the day. According to previous notes pt was in chair when her daughter heard a noise in the living room and found the pt on the carpeted floor and was on R side. Pt is AAOX2 but not appropriately answering questions. ER course was notable for: (1) ofirmev, ceftriaxone, ativan (2) (3) Recent Travel: unable to obtain PAST MEDICAL HISTORY:CAD, HTN, HLD, hyperthyroidism, OA, dementia, frequent falls PAST SURGICAL HISTORY:unable to obtain Social History: Smoking:unable to obtain Alcohol:unable to obtain Drugs: unable to obtain Family History:unable to obtain Allergies No Known Allergies Allergy (Verified 08/16/18 14:19) HOME MEDICATIONS: Home Medications Medication Instructions Recorded Aspirin [Ecotrin] 81 mg PO DAILY 01/04/18 Alendronate Sodium [Binosto] 10 mg PO DAILY 08/16/18 Citalopram Hydrobromide [Celexa -] 10 mg PO DAILY 08/16/18 Ascorbic Acid [Vitamin C] 500 mg PO DAILY 11/29/18 Brinzolamide [Azopt] 1 drop OU BID 11/29/18 Calcium Carbonate [Calcium] 500 mg PO DAILY 11/29/18 Cholecalciferol (Vitamin D3) 2,000 unit PO DAILY 11/29/18 [Vitamin D3] Lactobacillus Acidophilus 1 each PO DAILY 11/29/18 [Probiotic] Latanoprost 0.005% Eye Drops 1 drop OU HS 11/29/18 [Xalatan 0.005% Eye Drops -] Timolol 0.5% [Timoptic 0.5%] 1 drop OU BID 11/29/18 Vitamin B Complex [B Complex] 1 each PO DAILY 11/29/18 REVIEW OF SYSTEMS unable to obtain PHYSICAL EXAMINATION Vital Signs - 24 hr 12/16/18 12/17/18 19:15 01:00 Temperature 99.1 F Pulse Rate 91 H Pulse Rate [ 85 Right Radial] Respiratory 20 18 Rate Blood Pressure 147/86 Blood Pressure 172/90 H [Left Arm] O2 Sat by Pulse 97 97 Oximetry (%) GENERAL: Awake, alert, and oriented x2 (person and place). In NAD. HEAD: Normal with no signs of trauma. EYES: sclera anicteric EARS, NOSE, THROAT: Ears normal, nares patent LUNGS: Breath sounds equal, clear to auscultation bilaterally anteriorly. HEART: Regular rate and rhythm, normal S1 and S2 ABDOMEN: Soft, nontender, not distended, normoactive bowel sounds LOWER EXTREMITIES:warm, well-perfused. No peripheral edema. No pain with palpation at hips or with log rolling of thighs. NEUROLOGICAL: Gait not observed. PSYCHIATRIC: Cooperative for some parts of physical exam but not all. SKIN: Warm, dry Laboratory Results - last 24 hr 12/16/18 12/16/18 12/16/18 20:19 20:19 20:19 WBC 11.8 H RBC 4.20 Hgb 12.6 Hct 36.7 MCV 87.5 MCH 30.1 MCHC 34.4 RDW 16.0 H Plt Count 427 D MPV 6.9 L D Absolute Neuts (auto) 8.8 H Neutrophils % 75.1 D Lymphocytes % 19.0 D Monocytes % 4.3 Eosinophils % 0.7 Basophils % 0.9 Nucleated RBC % 0 PT with INR 11.50 INR 0.97 PTT (Actin FS) 27.2 Sodium 132 L Potassium 4.3 Chloride 98 Carbon Dioxide 25 Anion Gap 9 BUN 14 Creatinine 0.5 L Creat Clearance w eGFR > 60 POC Glucometer Random Glucose 138 H Calcium 9.0 Total Bilirubin 0.4 AST 18 ALT 18 Alkaline Phosphatase 108 Creatine Kinase Troponin I Total Protein 7.4 Albumin 3.5 Urine Color Urine Appearance Urine pH Ur Specific [place] Urine Protein Urine Glucose (UA) Urine Ketones Urine Blood Urine Nitrite Urine Bilirubin Urine Urobilinogen Ur Leukocyte Esterase Urine WBC (Auto) Urine RBC (Auto) Ur Epithelial Cells Urine Bacteria Urine Mucus Anti-A Titer Blood Type Antibody Screen 12/16/18 12/16/18 12/16/18 20:19 20:19 21:10 WBC RBC Hgb Hct MCV MCH MCHC RDW Plt Count MPV Absolute Neuts (auto) Neutrophils % Lymphocytes % Monocytes % Eosinophils % Basophils % Nucleated RBC % PT with INR INR PTT (Actin FS) Sodium Potassium Chloride Carbon Dioxide Anion Gap BUN Creatinine Creat Clearance w eGFR POC Glucometer Random Glucose Calcium Total Bilirubin AST ALT Alkaline Phosphatase Creatine Kinase 107 Troponin I < 0.02 Total Protein Albumin Urine Color Urine Appearance Urine pH Ur Specific [place] Urine Protein Urine Glucose (UA) Urine Ketones Urine Blood Urine Nitrite Urine Bilirubin Urine Urobilinogen Ur Leukocyte Esterase Urine WBC (Auto) Urine RBC (Auto) Ur Epithelial Cells Urine Bacteria Urine Mucus Anti-A Titer Cancelled Blood Type Cancelled A POSITIVE Antibody Screen Cancelled Negative 12/16/18 12/17/18 21:15 00:10 WBC RBC Hgb Hct MCV MCH MCHC RDW Plt Count MPV Absolute Neuts (auto) Neutrophils % Lymphocytes % Monocytes % Eosinophils % Basophils % Nucleated RBC % PT with INR INR PTT (Actin FS) Sodium Potassium Chloride Carbon Dioxide Anion Gap BUN Creatinine Creat Clearance w eGFR POC Glucometer 153 Random Glucose Calcium Total Bilirubin AST ALT Alkaline Phosphatase Creatine Kinase Troponin I Total Protein Albumin Urine Color Vianca Urine Appearance Cloudy Urine pH 5.0 Ur Specific [place] 1.016 Urine Protein Negative Urine Glucose (UA) Negative Urine Ketones 1+ H Urine Blood Negative Urine Nitrite Negative Urine Bilirubin Negative Urine Urobilinogen Negative Ur Leukocyte Esterase 2+ H Urine WBC (Auto) 52 Urine RBC (Auto) 1 Ur Epithelial Cells Rare Urine Bacteria Rare Urine Mucus Rare Anti-A Titer Blood Type Antibody Screen Head CT: No acute pathology per imaging adoption coordinator. F/u official read C-Spine CT: No acute pathology per imaging adoption coordinator. F/u official read Hip/Pelvis XR: Pending official read R Shoulder XR: Pending official read CXR: No acute pathology noted, f/u official read ASSESSMENT/PLAN: 88 y/o F w/PMH CAD, HTN, HLD, hyperthyroidism, OA, dementia, frequent falls presents to the ER after unwitnessed fall. Found to have R hip fracture and UTI. -Hip fracture secondary to fall -Possible syncopal event leading to fall as it was unwitnessed and pt is poor historian -Head CT neg. Carotid U/S, Echo, Orthostatics as tolerated in supine/ seated positions only. -Ortho consulted by ER. -To be made NPO after midnight. Aspirin to be held. -Type and screen already done -Pain control with ofirmev and to use morphine for breakthrough pain -LR @ 50 ml/hr -Pt is currently medically optimized for this orthopedic intermediate risk surgery -UTI -f/u UCx -ceftriaxone 1g qd IV -OA -hold meds -Glaucoma -will resume eyedrops -DVT ppx -SCDs -FEN -LR @ 50 ml/hr -Monitor electrolytes -NPO -Dispo: Admit to tele Visit type - Emergency Visit Emergency Visit: Yes ED Registration Date: 12/16/18 Care time: The patient presented to the Emergency Department on the above date and was hospitalized for further evaluation of their emergent condition. - New Patient This patient is new to me today: Yes Date on this admission: 12/17/18 - Critical Care Critical Care patient: No
[2018-12-17] MEDS ORDERED: LACTATED RINGERS SOLUTION 1,000 ML/1,000 ML INFUS.BAG IV SCH (02:30)
[2018-12-17] MEDS ORDERED: ACETAMINOPHEN 325 MG TABLET (FP) PO PRN ×2 (07:47→11:09)
[2018-12-17 08:23] LABS: BASO % 0.3 % (0-2.0); HEMATOCRIT 28.5 % (32.4-45.2); HEMOGLOBIN 9.9 GM/dL (10.7-15.3); LYMPH % 15.6 % (8-40); MCH 29.9 pg (25.7-33.7); MCHC 34.8 g/dl (32.0-36.0); MEAN CELL VOLUME 85.8 fl (80-96); MEAN PLT VOLUME 7.2 fl (7.5-11.1); MONO % 5.2 % (3.8-10.2); NEUT % 78.9 % (42.8-82.8); PLATELET COUNT 388 K/MM3 (134-434); RBC 3.32 M/mm3 (3.60-5.2); RDW 15.8 % (11.6-15.6); WHITE BLOOD COUNT 12.3 K/mm3 (4.0-10.0)
--- NOTE | 2018-12-17 08:27 | CON.ORTH ---
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: Dementia ...: No - Alcohol/Substance Use Hx Alcohol Use: No - Smoking History Smoking history: Never smoked Have you smoked in the past 12 months: No Aproximately how many cigarettes per day: 0 Home Medications - Allergies Allergies/Adverse Reactions: Allergies Allergy/AdvReac Type Severity Reaction Status Date / Time No Known Allergies Allergy Verified 08/16/18 14:19 - Home Medications Home Medications: Ambulatory Orders Aspirin [Ecotrin] 81 mg PO DAILY 01/04/18 Alendronate Sodium [Binosto] 10 mg PO DAILY 08/16/18 Citalopram Hydrobromide [Celexa -] 10 mg PO DAILY 08/16/18 Ascorbic Acid [Vitamin C] 500 mg PO DAILY 11/29/18 Brinzolamide [Azopt] 1 drop OU BID 11/29/18 Calcium Carbonate [Calcium] 500 mg PO DAILY 11/29/18 Cholecalciferol (Vitamin D3) [Vitamin D3] 2,000 unit PO DAILY 11/29/18 Lactobacillus Acidophilus [Probiotic] 1 each PO DAILY 11/29/18 Latanoprost 0.005% Eye Drops [Xalatan 0.005% Eye Drops -] 1 drop OU HS 11/29/18 Timolol 0.5% [Timoptic 0.5%] 1 drop OU BID 11/29/18 Vitamin B Complex [B Complex] 1 each PO DAILY 11/29/18 Physical Exam for Ortho Vital Signs: Vital Signs Temperature 97.7 F 12/17/18 07:55 Pulse Rate 98 H 12/17/18 07:55 Respiratory Rate 20 12/17/18 07:55 Blood Pressure 176/83 H 12/17/18 07:55 O2 Sat by Pulse Oximetry (%) 97 12/17/18 05:05 Labs: INR, PTT INR 0.97 (0.83-1.09) 12/16/18 20:19 - Lower Extremity Hip: Yes: Right, Decreased ROM, Leg Externally Rotated, Leg Shortened, Pain, Swelling, Other (nvi) Imaging - Results X-ray: Report Reviewed, Image Reviewed Assessment/Plan 88 y/o F w/PMH CAD, HTN, HLD, hyperthyroidism, OA, dementia, frequent falls presents to the ER after unwitnessed fall. Pt is poor historian and family was not at bedside during interview. Pt was not able to give history and does not remember the events of the day. According to previous notes pt was in chair when her daughter heard a noise in the living room and found the pt on the carpeted floor and was on R side. a/p right displaced IT fx Risks and benefits were d/w daughter in detail- She gives consent for the surgery OR today for right IM gamma nail surgical clearance NPO d/w Dr. Fisher
[2018-12-17 09:17] LABS: ALK PHOS 91 U/L (45-117); ANION GAP 11 MMOL/L (8-16); BILIRUBIN,TOTAL 0.6 mg/dL (0.2-1); BLOOD UREA NITROGEN 13 mg/dL (7-18); CALCIUM 8.3 mg/dL (8.5-10.1); CHLORIDE 100 mmol/L (98-107); CO2 24 mmol/L (21-32); CREATININE 0.4 mg/dL (0.55-1.3); GLUCOSE,RANDOM 145 mg/dL (74-106); PHOSPHOROUS 3.2 mg/dL (2.5-4.9); POTASSIUM 3.8 mmol/L (3.5-5.1); SGPT/ALT 17 U/L (13-61); SODIUM 134 mmol/L (136-145); TOT PROT 6.4 g/dl (6.4-8.2)
[2018-12-17 09:35] LABS: SGOT/AST 17 U/L (15-37)
--- NOTE | 2018-12-17 09:54 | OP ---
Operative Note - Note: Operative Date: 12/17/18 ([facility]) Pre-Operative Diagnosis: right IT fx Operation: right IM gamma nail Post-Operative Diagnosis: Same as Pre-op Surgeon: Saud Fisher Ancillary Specialist: Donavon Lacy Anesthesia: Spinal Estimated Blood Loss (mls): 50 Operative Report Dictated: Yes
[2018-12-17] MEDS ORDERED: PROPOFOL 20 ML ONE ×2 (09:59)
[2018-12-17] MEDS ORDERED: TIMOLOL 0.5% OPHTHALMIC SOL 5 ML BOTTLE OU SCH (10:00)
[2018-12-17] MEDS ORDERED: MIDAZOLAM HCL 2 MG/2 ML SINGLE DOSE VIAL ONE (10:01)
[2018-12-17] MEDS ORDERED: PHENYLEPHRINE HCL 10 MG/1 ML SINGLE DOSE VIAL ONE (10:18)
[2018-12-17] MEDS ORDERED: ceFAZolin SODIUM 1 GM VIAL ONE (10:19)
[2018-12-17] MEDS ORDERED: ceFAZolin SODIUM 1 GM VIAL IVPB ONE (10:20)
[2018-12-17] MEDS ORDERED: ONDANSETRON 4 MG/2 ML VIAL IVPUSH PRN (11:10)
--- NOTE | 2018-12-17 13:32 | SPEC ---
DATE OF OPERATION: 12/17/2018 PREOPERATIVE DIAGNOSIS: Right intertrochanteric hip fracture. POSTOPERATIVE DIAGNOSIS: Right intertrochanteric hip fracture. PROCEDURE: Right Gamma nailing. SURGICAL ATTENDING: Kellen Fisher MD JEWELRY BENCH MOLDER: NAHOMY Gilbert ANESTHESIA: Spinal. CLOSURE: A short Gamma nail with appropriate interlocking screws, No. 1 Vicryl fascia, 2-0 subcutaneous, conor to skin. ESTIMATED BLOOD LOSS: Less than 50 mL. COMPLICATIONS: None. CONDITION: To Recovery in stable condition. DESCRIPTION OF THE PROCEDURE: The patient was taken to the operating room on 12/17/2018. IV Kefzol was administered prophylactically prior to the case. Anesthesia was administered by the anesthesiologist. The patient was then fastened to the fracture table with all prominences well padded. Excellent reduction of the fracture was confirmed in AP and lateral plane by use of fluoroscopy. The right hip area was then prepped and draped in the usual sterile fashion by use of a shower curtain. A small 2-cm longitudinal incision over the tip of the greater trochanter was incised, hemostasis achieved using Bovie cautery. Sharp dissection was carried through the fascia. A guidewire was drilled from the tip of the greater trochanter into the intramedullary canal past the fracture. This was directed by fluoroscopy in both the AP and lateral plane. This was overreamed with a proximal reamer. A short Gamma nail was then malleted down into place. Using the outrigger and a small stab incision laterally, a guidewire was drilled from the lateral aspect of the femur, through the billy, through the neck into the femoral head. Proper placement was confirmed in the AP and lateral plane by using the image intensifier. The guidewire was measured for length, reamed with a triple reamer, and then screwed with the appropriate-sized lag screw. With the traction removed, the compression device was used to compress the fracture. A set screw was placed from above in the dynamic fashion. Again using the outrigger and through a small stab incision distally, a distal hole was drilled, depth gauged and screwed with the appropriate length locking screw in the static hole. The outrigger was removed. The x-rays in the AP and lateral plane revealed excellent position of the hardware with excellent reduction of the fracture. All incisions were irrigated out with copious amounts of irrigation. The fascia was closed in 0 Vicryl, 2-0 subcutaneous, and conor to the skin. Sterile pressure dressing was applied, patient awakened from anesthesia and transferred to Recovery in stable condition. No complications. Estimated blood loss less than 50 mL. KELLEN FISHER M.D. DARIN/[id number]
--- NOTE | 2018-12-17 15:52 | PN ---
Progress Note (short form) - Note Progress Note: Subjective: has painin hip, otherwise denies SOB and CP . Objective: Vital Signs: Last Vital Signs Temp Pulse Resp BP Pulse Ox 98 F 95 H 20 136/89 97 12/17/18 15:00 12/17/18 15:00 12/17/18 15:00 12/17/18 15:00 12/17/18 12:33 Laboratory Results - last 24 hr 12/16/18 12/16/18 12/16/18 20:19 20:19 20:19 WBC 11.8 H RBC 4.20 Hgb 12.6 Hct 36.7 MCV 87.5 MCH 30.1 MCHC 34.4 RDW 16.0 H Plt Count 427 D MPV 6.9 L D Absolute Neuts (auto) 8.8 H Neutrophils % 75.1 D Lymphocytes % 19.0 D Monocytes % 4.3 Eosinophils % 0.7 Basophils % 0.9 Nucleated RBC % 0 PT with INR 11.50 INR 0.97 PTT (Actin FS) 27.2 Sodium 132 L Potassium 4.3 Chloride 98 Carbon Dioxide 25 Anion Gap 9 BUN 14 Creatinine 0.5 L Creat Clearance w eGFR > 60 POC Glucometer Random Glucose 138 H Calcium 9.0 Phosphorus Magnesium Total Bilirubin 0.4 AST 18 ALT 18 Alkaline Phosphatase 108 Creatine Kinase Troponin I Total Protein 7.4 Albumin 3.5 Urine Color Urine Appearance Urine pH Ur Specific [place] Urine Protein Urine Glucose (UA) Urine Ketones Urine Blood Urine Nitrite Urine Bilirubin Urine Urobilinogen Ur Leukocyte Esterase Urine WBC (Auto) Urine RBC (Auto) Ur Epithelial Cells Urine Bacteria Urine Mucus Anti-A Titer Blood Type Antibody Screen 12/16/18 12/16/18 12/16/18 20:19 20:19 21:10 WBC RBC Hgb Hct MCV MCH MCHC RDW Plt Count MPV Absolute Neuts (auto) Neutrophils % Lymphocytes % Monocytes % Eosinophils % Basophils % Nucleated RBC % PT with INR INR PTT (Actin FS) Sodium Potassium Chloride Carbon Dioxide Anion Gap BUN Creatinine Creat Clearance w eGFR POC Glucometer Random Glucose Calcium Phosphorus Magnesium Total Bilirubin AST ALT Alkaline Phosphatase Creatine Kinase 107 Troponin I < 0.02 Total Protein Albumin Urine Color Urine Appearance Urine pH Ur Specific [place] Urine Protein Urine Glucose (UA) Urine Ketones Urine Blood Urine Nitrite Urine Bilirubin Urine Urobilinogen Ur Leukocyte Esterase Urine WBC (Auto) Urine RBC (Auto) Ur Epithelial Cells Urine Bacteria Urine Mucus Anti-A Titer Cancelled Blood Type Cancelled A POSITIVE Antibody Screen Cancelled Negative 12/16/18 12/17/18 12/17/18 21:15 00:10 03:20 WBC RBC Hgb Hct MCV MCH MCHC RDW Plt Count MPV Absolute Neuts (auto) Neutrophils % Lymphocytes % Monocytes % Eosinophils % Basophils % Nucleated RBC % PT with INR INR PTT (Actin FS) Sodium Potassium Chloride Carbon Dioxide Anion Gap BUN Creatinine Creat Clearance w eGFR POC Glucometer 153 Random Glucose Calcium Phosphorus Magnesium Total Bilirubin AST ALT Alkaline Phosphatase Creatine Kinase Troponin I 0.02 Total Protein Albumin Urine Color Vianca Urine Appearance Cloudy Urine pH 5.0 Ur Specific [place] 1.016 Urine Protein Negative Urine Glucose (UA) Negative Urine Ketones 1+ H Urine Blood Negative Urine Nitrite Negative Urine Bilirubin Negative Urine Urobilinogen Negative Ur Leukocyte Esterase 2+ H Urine WBC (Auto) 52 Urine RBC (Auto) 1 Ur Epithelial Cells Rare Urine Bacteria Rare Urine Mucus Rare Anti-A Titer Blood Type Antibody Screen 12/17/18 12/17/18 07:00 07:00 WBC 12.3 H RBC 3.32 L Hgb 9.9 L Hct 28.5 L D MCV 85.8 MCH 29.9 MCHC 34.8 RDW 15.8 H Plt Count 388 MPV 7.2 L Absolute Neuts (auto) 9.7 H Neutrophils % 78.9 Lymphocytes % 15.6 Monocytes % 5.2 Eosinophils % 0.0 D Basophils % 0.3 Nucleated RBC % 0 PT with INR INR PTT (Actin FS) Sodium 134 L Potassium 3.8 Chloride 100 Carbon Dioxide 24 Anion Gap 11 BUN 13 Creatinine 0.4 L Creat Clearance w eGFR > 60 POC Glucometer Random Glucose 145 H Calcium 8.3 L Phosphorus 3.2 Magnesium 2.0 Total Bilirubin 0.6 AST 17 ALT 17 Alkaline Phosphatase 91 Creatine Kinase Troponin I Total Protein 6.4 Albumin 3.0 L Urine Color Urine Appearance Urine pH Ur Specific [place] Urine Protein Urine Glucose (UA) Urine Ketones Urine Blood Urine Nitrite Urine Bilirubin Urine Urobilinogen Ur Leukocyte Esterase Urine WBC (Auto) Urine RBC (Auto) Ur Epithelial Cells Urine Bacteria Urine Mucus Anti-A Titer Blood Type Antibody Screen Physical Exam: NAD , awake , does not know age or location CV: RRR Lungs: CTAB ext : R hip surgical dressing . DP 2+ b/l. no edema on legs Abd: soft, NT, ND , NL BS Imaging: CT C spine reviewed. C4-C5 subluxation Assessment/Plan: 88 y/o lady with h/o CAD, HTN, HLD, hyperthyroid, frequent falls, dementia. who presented after a fall. she was found ot have R hip Fx 1- R hip Fx s/p gamma nailing - pain control - DVT PX - PT 2- C4-C5 anterior subluxation: - place hard C collar and consult neuro sx . Dr. Azar notified 3- UTI: likely leukocytosis is due to the fall , but could be due to UTI - cont ceftriaxone and folow urine cx 4- CAD : resume her asa tomorrow 5- fall : likley mechanical , but due to uncertainty , echo was ordered. montez follow 6- HTN: resolved with no medications. will monitor , if needed can start low dose BB Visit type - Emergency Visit Emergency Visit: Yes ED Registration Date: 12/16/18 Care time: The patient presented to the Emergency Department on the above date and was hospitalized for further evaluation of their emergent condition. - New Patient This patient is new to me today: No - Critical Care Critical Care patient: No
[2018-12-17] MEDS: CEFAZOLIN 1 GM/D5W 1 GM/50 ML BAG IVPB SCH (17:02)
[2018-12-17] MEDS: LACTATED RINGERS SOLUTION 1,000 ML IV SCH ×2 (17:02→21:48)
[2018-12-17] MEDS ORDERED: CEFAZOLIN 1 GM/D5W 1 GM/50 ML BAG IVPB SCH (18:00)
[2018-12-17] MEDS ORDERED: CEFTRIAXONE 1 GM in DEXTROSE 5%-WATER - 50 ML IVPB SCH ×2 (20:00→22:00)
[2018-12-17] MEDS: LATANOPROST 0.005% OPHTH SOLN 2.5ML BOTTLE OU SCH (21:49)
[2018-12-17] MEDS: TIMOLOL 0.5% OPHTHALMIC SOL 5 ML BOTTLE OU SCH (21:49)
[2018-12-17] MEDS ORDERED: LATANOPROST 0.005% OPHTH SOLN 2.5ML BOTTLE OU SCH (22:00)
--- NOTE | 2018-12-17 22:08 | EKG ---
Test Reason : Blood Pressure : / mmHG Vent. Rate : 093 BPM Atrial Rate : 271 BPM P-R Int : 000 ms QRS Dur : 076 ms QT Int : 396 ms P-R-T Axes : -18 031 -67 degrees QTc Int : 492 ms UNDETERMINED RHYTHM ?SINUS RHYTHM WITH SINUS ARRHYTHMIA VS. MULTIFOCAL ATRIAL ARRHYTHMIA MODERATE VOLTAGE CRITERIA FOR LVH, MAY BE NORMAL VARIANT MARKED T-WAVE ABNORMALITY, CONSIDER INFEROLATERAL ISCHEMIA ABNORMAL ECG WHEN COMPARED WITH ECG OF 29-NOV-2018 17:52, BASELINE ARTIFACT Confirmed by KAYLAN RACHEL MD ([id number]) on 12/17/2018 10:07:48 PM Referred By: Confirmed By:KAYLAN RACHEL MD
[2018-12-18] MEDS ORDERED: LORazepam 2 MG/ML SDV VIAL IVPUSH ONE
[2018-12-18] MEDS: CEFAZOLIN 1 GM/D5W 1 GM/50 ML BAG IVPB SCH (02:32)
[2018-12-18 07:33] LABS: HEMATOCRIT 19.5 % (32.4-45.2); MCH 29.8 pg (25.7-33.7); MCHC 34.7 g/dl (32.0-36.0); MEAN CELL VOLUME 85.9 fl (80-96); MEAN PLT VOLUME 7.1 fl (7.5-11.1); PLATELET COUNT 272 K/MM3 (134-434); RBC 2.27 M/mm3 (3.60-5.2); RDW 15.8 % (11.6-15.6); WHITE BLOOD COUNT 6.2 K/mm3 (4.0-10.0)
[2018-12-18 07:47] LABS: ANION GAP 5 MMOL/L (8-16); BLOOD UREA NITROGEN 10 mg/dL (7-18); CALCIUM 7.7 mg/dL (8.5-10.1); CHLORIDE 102 mmol/L (98-107); CO2 28 mmol/L (21-32); CREATININE 0.4 mg/dL (0.55-1.3); GLUCOSE,RANDOM 110 mg/dL (74-106); POTASSIUM 3.9 mmol/L (3.5-5.1); SODIUM 135 mmol/L (136-145)
[2018-12-18 07:55] LABS: HEMOGLOBIN 6.7 GM/dL (10.7-15.3)
--- NOTE | 2018-12-18 09:01 | PN ---
Progress Note (short form) - Note Progress Note: Ortho Pt seen and examined s/p right IM gamma pod #1 Selected Entries 12/18/18 05:29 Temperature 98.2 F Pulse Rate 104 H Respiratory 18 Rate Blood Pressure 122/70 Laboratory Tests 12/18/18 06:35 WBC 6.2 Hgb 6.7 L* Hct 19.5 L D Plt Count 272 D dressing c/d/i, calf soft. nt nvi a/p 2 units PRBCs PT if able wbat hold lovenox until tomorrow dvt ppx pain control will follow
--- NOTE | 2018-12-18 09:40 | PN ---
Progress Note (short form) - Note Progress Note: POD #1 - s/p gamma nail under spinal anesthesia. VSS. Pt. resting comfortably in bed. No apparent anesthetic complications noted. Continue current care.
[2018-12-18] MEDS ORDERED: ENOXAPARIN NA (PORCINE) 40 MG/0.4 ML DISP.SYRIN SQ SCH ×2 (10:00)
[2018-12-18] MEDS ORDERED: ASPIRIN COATED 81 MG TABLET.EC PO SCH (10:00)
[2018-12-18] MEDS ORDERED: cefTRIAXone SODIUM 1 GM VIAL ONE (10:44)
[2018-12-18] MEDS ORDERED: DEXTROSE 5%-WATER - 50 ML IVPB ONE (10:44)
[2018-12-18] MEDS: LACTATED RINGERS SOLUTION 1,000 ML IV SCH (10:52)
[2018-12-18] MEDS: LACTATED RINGERS SOLUTION 1,000 ML/1,000 ML INFUS.BAG IV SCH (10:52)
[2018-12-18] MEDS: CEFTRIAXONE 1 GM in DEXTROSE 5%-WATER - 50 ML IVPB SCH (10:53)
[2018-12-18] MEDS: TIMOLOL 0.5% OPHTHALMIC SOL 5 ML BOTTLE OU SCH ×2 (10:54→21:45)
--- NOTE | 2018-12-18 13:01 | PN ---
Teaching Attending Note Name of Resident: Ramiro Jeff ATTENDING PHYSICIAN STATEMENT I saw and evaluated the patient. I reviewed the resident's note and discussed the case with the resident. I agree with the resident's findings and plan as documented. SUBJECTIVE: unable to obtain hx OBJECTIVE: lethargic. answers some questios with eye closed CV: RRR Lungs: CTAB anteriorly ext : R hip clean dressing , removed with no bruising around surgical wound . DP 2+ b/l. no edema on legs Abd: soft, NT, ND , NL BS Assessment/Plan: 88 y/o lady with h/o CAD, HTN, HLD, hyperthyroid, frequent falls, dementia. who presented after a fall. she was found ot have R hip Fx 1- R intertrochanteric Fx s/p gamma nailing , POD 1 - pain control with tylenol - hold lovenox due to anemia - PT 2- Acute blood loss anemia: - 2 units or RBC ordered. - follow H@H after transfusion - hold lovenox and ASA 3- C4-C5 anterior subluxation: - C collar and Surgical eval - d/w Dr. Azar. MRI of C spine to evaluate chronicity of finding 4- UTI: - cont ceftriaxone ( day 2) and follow urine cx 5- Possible hypoactive delirium: correct all factors like pain an danemia, and reevaluate . avoid sedatives 6- fall : likely mechanical. follow Echo results 6- HTN: resolved with no medications HLOC. will need rehab at dc. If no neck Sx is needed, then possible dc in 1-2 days
--- NOTE | 2018-12-18 18:19 | PN ---
Physical Exam: SUBJECTIVE: Patient seen and examined. Unable to obtain history. OBJECTIVE: Vital Signs Period Temp Pulse Resp BP Sys/Pulido Pulse Ox Last 24 Hr 98.2 F-98.6 F 100-116 18-20 118-156/66-78 GENERAL: Lethargic HEAD: Atraumatic/ Normocephalic ENT: MMM LUNGS:Clear to auscultation anteriorly HEART: RRR ABDOMEN: NDNT No hsm. EXTREMITIES: TEDs on, SCD's/s, no pitting edema appreciated Laboratory Results - last 24 hr 12/16/18 12/18/18 12/18/18 21:10 06:35 06:35 WBC 6.2 RBC 2.27 L Hgb 6.7 L* Hct 19.5 L D MCV 85.9 MCH 29.8 MCHC 34.7 RDW 15.8 H Plt Count 272 D MPV 7.1 L Sodium 135 L Potassium 3.9 Chloride 102 Carbon Dioxide 28 Anion Gap 5 L BUN 10 Creatinine 0.4 L Creat Clearance w eGFR > 60 Random Glucose 110 H Calcium 7.7 L Blood Type A POSITIVE Antibody Screen Negative Crossmatch See Detail Active Medications Generic Name Dose Route Start Last Admin Trade Name Freq PRN Reason Stop Dose Admin Acetaminophen 650 mg 12/17/18 11:09 Tylenol - PO Q6H PRN PAIN Ceftriaxone Sodium 1 gm/ 50 mls @ 100 mls/hr 12/18/18 10:00 12/18/18 10:53 Dextrose IVPB 100 mls/hr DAILY DENISA Administration Lactated Ringer's 1,000 ml in 1,000 mls @ 50 mls/hr 12/17/18 11:09 12/18/18 10:52 Lactated Ringers Solution IV Not Given ASDIR DENISA Lactated Ringer's 1,000 mls @ 75 mls/hr 12/17/18 11:15 12/18/18 10:52 Lactated Ringers Solution IV 75 mls/hr ASDIR DENISA Administration Latanoprost 1 drop 12/17/18 22:00 12/17/18 21:49 Xalatan 0.005% Eye Drops - OU Not Given HS DENISA Ondansetron HCl 4 mg 12/17/18 11:10 Zofran Injection IVPUSH Q6H PRN NAUSEA AND/OR VOMITING Timolol Maleate 1 drop 12/17/18 22:00 12/18/18 10:54 Timoptic 0.5% OU 1 drop BID DENISA Administration ASSESSMENT/PLAN: 88 y/o F w/PMH CAD, HTN, HLD, hyperthyroidism, OA, dementia, frequent falls presents to the ER after unwitnessed fall. Found to have R hip fracture and UTI. #Hip fracture secondary to fall. POD#1 Right I.M Gamma Nail -Possible syncopal event leading to fall as it was unwitnessed and pt is poor historian -Dr Fisher on board -LR @ 50 ml/hr -Tylenol for pain control, physical therapy #Anemia: H/H---> 6.7/19.5. Received 2 U PRBC. Repeat H/H---> 8.8// # C4-C5 anterior sublaxation - Case discussed with neurosurgery, Dr Day. Recommends MRI #UTI - UCx---> Alpha Hemolytic Streptococcus -ceftriaxone 1g qd IV Day 2 - Leuk Est 2+. 52 WBCs -Glaucoma -Latanoprost eye drops - Timolol eye drops -DVT ppx -SCDs, TEDs -FEN -LR @ 75 ml/hr -Monitor electrolytes -NPO -Dispo: med-surg Visit type - Emergency Visit Emergency Visit: Yes ED Registration Date: 12/16/18 Care time: The patient presented to the Emergency Department on the above date and was hospitalized for further evaluation of their emergent condition. - New Patient This patient is new to me today: No - Critical Care Critical Care patient: No - Discharge Referral Referred to [facility] Med P.C.: No
[2018-12-18 20:50] LABS: HEMATOCRIT 24.4 % (32.4-45.2); HEMOGLOBIN 8.8 GM/dL (10.7-15.3); MCH 30.6 pg (25.7-33.7); MCHC 35.8 g/dl (32.0-36.0); MEAN CELL VOLUME 85.5 fl (80-96); MEAN PLT VOLUME 7.5 fl (7.5-11.1); PLATELET COUNT 302 K/MM3 (134-434); RBC 2.86 M/mm3 (3.60-5.2); RDW 15.1 % (11.6-15.6); WHITE BLOOD COUNT 7.8 K/mm3 (4.0-10.0)
[2018-12-18] MEDS: LATANOPROST 0.005% OPHTH SOLN 2.5ML BOTTLE OU SCH (21:46)
[2018-12-19] MEDS: LACTATED RINGERS SOLUTION 1,000 ML IV SCH ×2 (06:08→19:47)
[2018-12-19 07:41] LABS: HEMATOCRIT 21.9 % (32.4-45.2); HEMOGLOBIN 7.9 GM/dL (10.7-15.3); MCH 30.8 pg (25.7-33.7); MCHC 36.2 g/dl (32.0-36.0); MEAN CELL VOLUME 85.3 fl (80-96); MEAN PLT VOLUME 7.3 fl (7.5-11.1); PLATELET COUNT 256 K/MM3 (134-434); RBC 2.57 M/mm3 (3.60-5.2); RDW 15.1 % (11.6-15.6); WHITE BLOOD COUNT 6.9 K/mm3 (4.0-10.0)
[2018-12-19 08:31] LABS: ANION GAP 6 MMOL/L (8-16); BLOOD UREA NITROGEN 11 mg/dL (7-18); CALCIUM 7.4 mg/dL (8.5-10.1); CHLORIDE 102 mmol/L (98-107); CO2 26 mmol/L (21-32); CREATININE 0.3 mg/dL (0.55-1.3); GLUCOSE,RANDOM 100 mg/dL (74-106); MAGNESIUM 1.8 mg/dL (1.8-2.4); PHOSPHOROUS 2.1 mg/dL (2.5-4.9); POTASSIUM 3.5 mmol/L (3.5-5.1); SODIUM 135 mmol/L (136-145)
[2018-12-19] MEDS ORDERED: PT OWN MED DRAWER 7, Y5N ONE (11:01)
[2018-12-19] MEDS ORDERED: DEXTROSE 5%-WATER - 50 ML IVPB ONE (11:02)
[2018-12-19] MEDS ORDERED: cefTRIAXone SODIUM 1 GM VIAL ONE (11:02)
[2018-12-19] MEDS: CEFTRIAXONE 1 GM in DEXTROSE 5%-WATER - 50 ML IVPB SCH (11:09)
[2018-12-19] MEDS: TIMOLOL 0.5% OPHTHALMIC SOL 5 ML BOTTLE OU SCH ×2 (11:09→21:37)
[2018-12-19] MEDS ORDERED: NAPH,MB-DB/K PH,MBDB POWDER PACKET PO ONE (12:23)
--- NOTE | 2018-12-19 12:49 | CONSULT ---
Consult - text type - Consultation Consultation Note: NEUROSURGERY CONSULTATION Angela Pablo is an 88 year old female with a history of dementia who suffered a fall and was treated with a gamma nail procedure for a fracture. She was noted to have Cervical subluxation of C4 on C5 (Grade 1-2) on CT Cervical and is awaiting MRI scan to evaluate acuity of injury and whether there is any spinal cord compression. Patient is sleeping and does not easily awaken to verbal stimulation. Patient with her head displaying mild coronal tilt. Patient is not wearing collar. Will await further imaging and discussion with care team before developing recommendations for potential intervention (ACDF versus Collar versus observation).
[2018-12-19] MEDS: LACTATED RINGERS SOLUTION 1,000 ML/1,000 ML INFUS.BAG IV SCH (18:49)
--- NOTE | 2018-12-19 19:06 | PN ---
Physical Exam: SUBJECTIVE: Patient seen and examined at bedside. No acute events overnight. OBJECTIVE: Vital Signs Period Temp Pulse Resp BP Sys/Pulido Pulse Ox Last 24 Hr 98.0 F-98.6 F 3-106 3-22 120-140/64-74 95-95 GENERAL: Lethargic, responds to questions with eyes closed HEAD: Atraumatic/ Normocephalic ENT: MMM LUNGS:Clear to auscultation anteriorly HEART: RRR ABDOMEN: NDNT No hsm. EXTREMITIES: TEDs on, SCD's/s, no pitting edema appreciated Laboratory Results - last 24 hr 12/18/18 12/19/18 12/19/18 19:30 07:00 07:00 WBC 7.8 6.9 RBC 2.86 L 2.57 L Hgb 8.8 L 7.9 L Hct 24.4 L D 21.9 L MCV 85.5 85.3 MCH 30.6 30.8 MCHC 35.8 36.2 H RDW 15.1 15.1 Plt Count 302 256 MPV 7.5 7.3 L Sodium 135 L Potassium 3.5 Chloride 102 Carbon Dioxide 26 Anion Gap 6 L BUN 11 Creatinine 0.3 L Creat Clearance w eGFR > 60 Random Glucose 100 Calcium 7.4 L Phosphorus 2.1 L Magnesium 1.8 Active Medications Generic Name Dose Route Start Last Admin Trade Name Freq PRN Reason Stop Dose Admin Acetaminophen 650 mg 12/17/18 11:09 Tylenol - PO Q6H PRN PAIN Ceftriaxone Sodium 1 gm/ 50 mls @ 100 mls/hr 12/18/18 10:00 12/19/18 11:09 Dextrose IVPB 100 mls/hr DAILY DENISA Administration Lactated Ringer's 1,000 ml in 1,000 mls @ 50 mls/hr 12/17/18 11:09 12/19/18 18:49 Lactated Ringers Solution IV Not Given ASDIR DENISA Lactated Ringer's 1,000 mls @ 75 mls/hr 12/17/18 11:15 12/19/18 06:08 Lactated Ringers Solution IV 75 mls/hr ASDIR DENISA Administration Latanoprost 1 drop 12/17/18 22:00 12/18/18 21:46 Xalatan 0.005% Eye Drops - OU 1 drop HS DENISA Administration Ondansetron HCl 4 mg 12/17/18 11:10 Zofran Injection IVPUSH Q6H PRN NAUSEA AND/OR VOMITING Timolol Maleate 1 drop 12/17/18 22:00 12/19/18 11:09 Timoptic 0.5% OU 1 drop BID DENISA Administration ASSESSMENT/PLAN: 88 y/o F w/PMH CAD, HTN, HLD, hyperthyroidism, OA, dementia, frequent falls presents to the ER after unwitnessed fall. Found to have R hip fracture and UTI. #Hip fracture secondary to fall. POD#2 Right I.M Gamma Nail -Possible syncopal event leading to fall as it was unwitnessed and pt is poor historian -Dr Fisher on board -LR @ 75 ml/hr -Tylenol for pain control, physical therapy #Anemia: H/H---> 6.7/19.5. Received 2 U PRBC. Repeat H/H---> 8.8/24/4. H/H today 7.9/21.9. If H/H stable tomorrow, will resume SQ Heparin. # C4-C5 anterior sublaxation - Case discussed with neurosurgery, Dr Day. Recommends MRI #UTI - UCx---> Alpha Hemolytic Streptococcus -ceftriaxone 1g qd IV Day 3 - Leuk Est 2+. 52 WBCs -Glaucoma -Latanoprost eye drops - Timolol eye drops -DVT ppx -SCDs, TEDs -FEN -LR @ 75 ml/hr -Monitor electrolytes -NPO -Dispo: med-surg Visit type - Emergency Visit Emergency Visit: Yes ED Registration Date: 12/16/18 Care time: The patient presented to the Emergency Department on the above date and was hospitalized for further evaluation of their emergent condition. - New Patient This patient is new to me today: No - Critical Care Critical Care patient: No - Discharge Referral Referred to [facility] Med P.C.: No
--- NOTE | 2018-12-19 19:38 | PN ---
Teaching Attending Note Name of Resident: Yao Jeff ATTENDING PHYSICIAN STATEMENT I saw and evaluated the patient. I reviewed the resident's note and discussed the case with the resident. I agree with the resident's findings and plan as documented. SUBJECTIVE: no events over night . seh denies pain and SOB. OBJECTIVE: awake, but speaks with eyes closed . gets agitated and pushes examiner away and pulling sheets over her unable to fully evaluate her , but R hip wound with little amount of dry blood on badages with no erythema surrounding conor . Assessment/Plan: 88 y/o lady with h/o CAD, HTN, HLD, hyperthyroid, frequent falls, dementia. who presented after a fall. she was found ot have R hip Fx 1- R intertrochanteric Fx s/p gamma nailing, POD 2 - pain control with tylenol - hold lovenox due to anemia. if HB is stable in am , then resume lovenox due to high risk of DVT - PT 2- Acute blood loss anemia: -stable HB today s/p 2 units RBC Tx 12/18 - cont to hold ASA - hold lovenox as above 3- C4-C5 anterior subluxation: - C collar and Surgical eval - MRI is pending . Unable to reach daughter for MRI screening 4- UTI: - cont ceftriaxone ( day 4) . urine cx reviewed. 5- Possible hypoactive delirium: correct all factors like pain an danemia, and reevaluate . avoid sedatives 6- fall : likely mechanical. 6- HTN: resolved with no medications HLOC. will need rehab at [facility].
[2018-12-19] MEDS: LATANOPROST 0.005% OPHTH SOLN 2.5ML BOTTLE OU SCH (21:37)
[2018-12-20] MEDS: LACTATED RINGERS SOLUTION 1,000 ML IV SCH (06:37)
[2018-12-20] MEDS ORDERED: NAPH,MB-DB/K PH,MBDB POWDER PACKET PO ONE (08:55)
--- NOTE | 2018-12-20 09:03 | PN ---
Teaching Attending Note Name of Resident: Ramiro Jeff ATTENDING PHYSICIAN STATEMENT I saw and evaluated the patient. I reviewed the resident's note and discussed the case with the resident. I agree with the resident's findings and plan as documented. SUBJECTIVE: Patient has no new complain. patient has dementia. OBJECTIVE: Vital Signs Temperature 98.4 F 12/20/18 08:55 Pulse Rate 105 H 12/20/18 08:55 Respiratory Rate 20 12/20/18 08:55 Blood Pressure 143/90 12/20/18 08:55 O2 Sat by Pulse Oximetry (%) 95 12/19/18 22:00 GENERAL: Awake, alert, and oriented x2 (person and place). In NAD. HEAD: Normal with no signs of trauma. EYES: sclera anicteric; EARS, NOSE, THROAT: Ears normal, LUNGS: Breath sounds equal, clear to auscultation bilaterally anteriorly. HEART: Regular rate and rhythm, normal S1 and S2 ABDOMEN: Soft, nontender, not distended, normoactive bowel sounds LOWER EXTREMITIES:warm, well-perfused. No peripheral edema. NEUROLOGICAL: Gait not observed. PSYCHIATRIC: Cooperative for some parts of physical exam but not all. SKIN: Warm, dry CBCD WBC 6.9 K/mm3 (4.0-10.0) 12/19/18 07:00 RBC 2.57 M/mm3 (3.60-5.2) L 12/19/18 07:00 Hgb 7.9 GM/dL (10.7-15.3) L 12/19/18 07:00 Hct 21.9 % (32.4-45.2) L 12/19/18 07:00 MCV 85.3 fl (80-96) 12/19/18 07:00 MCHC 36.2 g/dl (32.0-36.0) H 12/19/18 07:00 RDW 15.1 % (11.6-15.6) 12/19/18 07:00 Plt Count 256 K/MM3 (134-434) 12/19/18 07:00 MPV 7.3 fl (7.5-11.1) L 12/19/18 07:00 CMP Sodium 135 mmol/L (136-145) L 12/19/18 07:00 Potassium 3.5 mmol/L (3.5-5.1) 12/19/18 07:00 Chloride 102 mmol/L (98-107) 12/19/18 07:00 Carbon Dioxide 26 mmol/L (21-32) 12/19/18 07:00 Anion Gap 6 MMOL/L (8-16) L 12/19/18 07:00 BUN 11 mg/dL (7-18) 12/19/18 07:00 Creatinine 0.3 mg/dL (0.55-1.3) L 12/19/18 07:00 Creat Clearance w eGFR > 60 (>60) 12/19/18 07:00 Random Glucose 100 mg/dL (74-106) 12/19/18 07:00 Calcium 7.4 mg/dL (8.5-10.1) L 12/19/18 07:00 Total Bilirubin 0.6 mg/dL (0.2-1) 12/17/18 07:00 AST 17 U/L (15-37) 12/17/18 07:00 ALT 17 U/L (13-61) 12/17/18 07:00 Alkaline Phosphatase 91 U/L (45-117) 12/17/18 07:00 Total Protein 6.4 g/dl (6.4-8.2) 12/17/18 07:00 Albumin 3.0 g/dl (3.4-5.0) L 12/17/18 07:00 CARDIAC ENZYMES Creatine Kinase 107 U/L (26-192) 12/16/18 20:19 Troponin I 0.02 ng/ml (0.00-0.05) 12/17/18 03:20 Current Medications Generic Name Dose Route Start Last Admin Trade Name Katie PRN Reason Stop Dose Admin Acetaminophen 650 mg 12/17/18 11:09 Tylenol - PO Q6H PRN PAIN Ceftriaxone Sodium 1 gm/ 50 mls @ 100 mls/hr 12/18/18 10:00 12/19/18 11:09 Dextrose IVPB 100 mls/hr DAILY DENISA Administration Lactated Ringer's 1,000 ml in 1,000 mls @ 50 mls/hr 12/17/18 11:09 12/19/18 18:49 Lactated Ringers Solution IV Not Given ASDIR DENIAS Lactated Ringer's 1,000 mls @ 75 mls/hr 12/17/18 11:15 12/20/18 06:37 Lactated Ringers Solution IV 75 mls/hr ASDIR DENISA Administration Latanoprost 1 drop 12/17/18 22:00 12/19/18 21:37 Xalatan 0.005% Eye Drops - OU 1 drop HS DENISA Administration Ondansetron HCl 4 mg 12/17/18 11:10 Zofran Injection IVPUSH Q6H PRN NAUSEA AND/OR VOMITING Timolol Maleate 1 drop 12/17/18 22:00 12/19/18 21:37 Timoptic 0.5% OU 1 drop BID DENISA Administration Home Medications Medication Instructions Recorded Aspirin [Ecotrin] 81 mg PO DAILY 01/04/18 Alendronate Sodium [Binosto] 10 mg PO DAILY 08/16/18 Citalopram Hydrobromide [Celexa -] 10 mg PO DAILY 08/16/18 Ascorbic Acid [Vitamin C] 500 mg PO DAILY 11/29/18 Brinzolamide [Azopt] 1 drop OU BID 11/29/18 Calcium Carbonate [Calcium] 500 mg PO DAILY 11/29/18 Cholecalciferol (Vitamin D3) 2,000 unit PO DAILY 11/29/18 [Vitamin D3] Lactobacillus Acidophilus 1 each PO DAILY 11/29/18 [Probiotic] Latanoprost 0.005% Eye Drops 1 drop OU HS 11/29/18 [Xalatan 0.005% Eye Drops -] Timolol 0.5% [Timoptic 0.5%] 1 drop OU BID 11/29/18 Vitamin B Complex [B Complex] 1 each PO DAILY 11/29/18 ASSESSMENT AND PLAN: Patient is a 88yo female with Pmhx of CAD, HTN, HLD, hyperthyroid, frequent falls, dementia. who presented after a fall. she was found ot have R hip Fx # Acute R intertrochanteric Fx s/p gamma nailing, POD #2 , pain control with tylenol hold lovenox due to anemia. if HB is stable , can resume lovenox due to high risk of DVT, PT evaluation. Patient is not wearing collar. # Acute blood loss anemia: stable HB today s/p 2 units RBC Tx 12/18 , hold ASA and Lovenox. # Anterior cervical subluxation:C4-C5 (Grade 1-2) C-collar and Surgical eval , MRI is pending . Unable to reach daughter for MRI screening # UTI: on ceftriaxone ( day 5) . urine cx reviewed. fall precaution: likely mechanical. # HTN: resolved with no medications will need rehab at [facility].
[2018-12-20] MEDS ORDERED: DEXTROSE 5%-WATER - 50 ML IVPB ONE (10:25)
[2018-12-20] MEDS ORDERED: cefTRIAXone SODIUM 1 GM VIAL ONE (10:25)
[2018-12-20] MEDS: CEFTRIAXONE 1 GM in DEXTROSE 5%-WATER - 50 ML IVPB SCH (10:40)
[2018-12-20] MEDS: TIMOLOL 0.5% OPHTHALMIC SOL 5 ML BOTTLE OU SCH ×2 (10:40→22:42)
[2018-12-20 11:58] LABS: HEMATOCRIT 24.4 % (32.4-45.2); HEMOGLOBIN 8.6 GM/dL (10.7-15.3); MCH 30.7 pg (25.7-33.7); MCHC 35.2 g/dl (32.0-36.0); MEAN CELL VOLUME 87.1 fl (80-96); PLATELET COUNT 292 K/MM3 (134-434); RDW 15.6 % (11.6-15.6); WHITE BLOOD COUNT 6.6 K/mm3 (4.0-10.0)
--- NOTE | 2018-12-20 12:39 | PN ---
Progress Note (short form) - Note Progress Note: Ortho Pt seen and examined s/p right IM gamma pod #3 Selected Entries 12/20/18 08:55 Temperature 98.4 F Pulse Rate 105 H Respiratory 20 Rate Blood Pressure 143/90 Laboratory Tests 12/20/18 11:45 WBC 6.6 Hgb 8.6 L Hct 24.4 L Plt Count 292 dressing c/d/i, calf soft. nt nvi a/p PT if able wbat dvt ppx pain control d/c planning
--- NOTE | 2018-12-20 17:26 | PN ---
Progress Note (short form) - Note Progress Note: MRI still not completed. Patient's daughter present and clinical course and potential consequences of untreated Cervical spine pathology discussed. I would not push her to undergo surgery, however, I stressed that evaluation of her injury would be prudent since there remains a small, but significant possibility that she has a clinically significant injury which may require treatment. She verbalizes an understanding and accepts responsibility for any deleterious consequences of failure to diagnose or treat an injury due to her decision not to image further at this time. All questions answered.
--- NOTE | 2018-12-20 19:49 | PN ---
Physical Exam: SUBJECTIVE: Patient seen and examined at bedside. No acute events overnight. OBJECTIVE: Vital Signs Period Temp Pulse Resp BP Sys/Pulido Pulse Ox Last 24 Hr 97.2 F-98.4 F 98-105 18-20 130-143/70-90 95-95 GENERAL: AAOx1. Dopes not open eyes when prompted. HEAD: Atraumatic/ Normocephalic ENT: MMM LUNGS: Clear to auscultation anteriorly HEART: RRR ABDOMEN: NDNT No hsm. EXTREMITIES: TEDs on, SCD's/s Laboratory Results - last 24 hr 12/16/18 12/20/18 21:10 11:45 WBC 6.6 RBC 2.80 L Hgb 8.6 L Hct 24.4 L MCV 87.1 MCH 30.7 MCHC 35.2 RDW 15.6 Plt Count 292 MPV 7.0 L Crossmatch See Detail Active Medications Generic Name Dose Route Start Last Admin Trade Name Freq PRN Reason Stop Dose Admin Acetaminophen 650 mg 12/17/18 11:09 Tylenol - PO Q6H PRN PAIN Ceftriaxone Sodium 1 gm/ 50 mls @ 100 mls/hr 12/18/18 10:00 12/20/18 10:40 Dextrose IVPB 100 mls/hr DAILY DENISA Administration Latanoprost 1 drop 12/17/18 22:00 12/19/18 21:37 Xalatan 0.005% Eye Drops - OU 1 drop HS DENISA Administration Ondansetron HCl 4 mg 12/17/18 11:10 Zofran Injection IVPUSH Q6H PRN NAUSEA AND/OR VOMITING Timolol Maleate 1 drop 12/17/18 22:00 12/20/18 10:40 Timoptic 0.5% OU 1 drop BID DENISA Administration ASSESSMENT/PLAN: 88 y/o F w/PMH CAD, HTN, HLD, hyperthyroidism, OA, dementia, frequent falls presents to the ER after unwitnessed fall. Found to have R hip fracture and UTI. #Hip fracture secondary to fall. POD#3 Right I.M Gamma Nail -Possible syncopal event leading to fall as it was unwitnessed and pt is poor historian -Dr Fisher on board -Tylenol for pain control, physical therapy #Anemia: H/H today 8.6/24.4. Continue to trend. # C4-C5 anterior sublaxation - Case discussed with neurosurgery, Dr Day. Recommends MRI. #UTI - UCx---> Alpha Hemolytic Streptococcus -ceftriaxone 1g qd IV Day 3 - Leuk Est 2+. 52 WBCs -Glaucoma -Latanoprost eye drops - Timolol eye drops -DVT ppx -SCDs, TEDs -FEN -No Fluids -Monitor electrolytes -Regular Diet -Dispo: For D/c Tomorrow Visit type - Emergency Visit Emergency Visit: Yes ED Registration Date: 12/16/18 Care time: The patient presented to the Emergency Department on the above date and was hospitalized for further evaluation of their emergent condition. - New Patient This patient is new to me today: No - Critical Care Critical Care patient: No - Discharge Referral Referred to [facility] Med P.C.: No
[2018-12-20] MEDS: LATANOPROST 0.005% OPHTH SOLN 2.5ML BOTTLE OU SCH (22:42)
[2018-12-21 08:29] LABS: HEMATOCRIT 22.9 % (32.4-45.2); MCH 30.7 pg (25.7-33.7); MCHC 34.9 g/dl (32.0-36.0); MEAN PLT VOLUME 7.4 fl (7.5-11.1); PLATELET COUNT 302 K/MM3 (134-434); RDW 15.5 % (11.6-15.6); WHITE BLOOD COUNT 5.9 K/mm3 (4.0-10.0)
[2018-12-21 08:55] LABS: ANION GAP 4 MMOL/L (8-16); BLOOD UREA NITROGEN 14 mg/dL (7-18); CALCIUM 7.5 mg/dL (8.5-10.1); CHLORIDE 103 mmol/L (98-107); CO2 30 mmol/L (21-32); CREATININE 0.2 mg/dL (0.55-1.3); GLUCOSE,RANDOM 110 mg/dL (74-106); POTASSIUM 3.3 mmol/L (3.5-5.1); SODIUM 138 mmol/L (136-145)
[2018-12-21] MEDS ORDERED: cefTRIAXone SODIUM 1 GM VIAL ONE (10:04)
[2018-12-21] MEDS ORDERED: DEXTROSE 5%-WATER - 50 ML IVPB ONE (10:04)
[2018-12-21] MEDS: CEFTRIAXONE 1 GM in DEXTROSE 5%-WATER - 50 ML IVPB SCH (10:10)
[2018-12-21] MEDS: TIMOLOL 0.5% OPHTHALMIC SOL 5 ML BOTTLE OU SCH ×2 (10:12→21:03)
--- NOTE | 2018-12-21 12:49 | PN ---
Progress Note (short form) - Note Progress Note: Patient lying in NAD MRI pending
[2018-12-21] MEDS ORDERED: MELATONIN 1 MG TABLET PO ONE ×2 (12:57→13:00)
--- NOTE | 2018-12-21 15:04 | PN ---
Physical Exam: SUBJECTIVE: Patient seen and examined at bedside. No acute events overnight. OBJECTIVE: Vital Signs Period Temp Pulse Resp BP Sys/Pulido Pulse Ox Last 24 Hr 98.1 F-98.6 F 77-95 16-20 132-145/74-80 95 GENERAL: Doesnt open eyes when speaking. Frail HEAD: Atraumatic/ Normocephalic ENT: MMM LUNGS: Clear to auscultation anteriorly HEART: RRR ABDOMEN: NDNT No hsm. EXTREMITIES: TEDs on, SCD's/s Laboratory Results - last 24 hr 12/16/18 12/21/18 12/21/18 21:10 07:30 07:30 WBC 5.9 RBC 2.60 L Hgb 8.0 L Hct 22.9 L MCV 88.0 MCH 30.7 MCHC 34.9 RDW 15.5 Plt Count 302 MPV 7.4 L Sodium 138 Potassium 3.3 L Chloride 103 Carbon Dioxide 30 Anion Gap 4 L BUN 14 Creatinine 0.2 L Creat Clearance w eGFR > 60 Random Glucose 110 H Calcium 7.5 L Phosphorus 3.0 Magnesium 2.0 Blood Type A POSITIVE Antibody Screen Negative Crossmatch See Detail Active Medications Generic Name Dose Route Start Last Admin Trade Name Freq PRN Reason Stop Dose Admin Acetaminophen 650 mg 12/17/18 11:09 Tylenol - PO Q6H PRN PAIN Ceftriaxone Sodium 1 gm/ 50 mls @ 100 mls/hr 12/18/18 10:00 12/21/18 10:10 Dextrose IVPB 100 mls/hr DAILY DENISA Administration Latanoprost 1 drop 12/17/18 22:00 12/20/18 22:42 Xalatan 0.005% Eye Drops - OU 1 drop HS DENISA Administration Ondansetron HCl 4 mg 12/17/18 11:10 Zofran Injection IVPUSH Q6H PRN NAUSEA AND/OR VOMITING Timolol Maleate 1 drop 12/17/18 22:00 12/21/18 10:12 Timoptic 0.5% OU 1 drop BID DENISA Administration ASSESSMENT/PLAN: 88 y/o F w/PMH CAD, HTN, HLD, hyperthyroidism, OA, dementia, frequent falls presents to the ER after unwitnessed fall. Found to have R hip fracture and UTI. #Hip fracture secondary to fall. POD#4 Right I.M Gamma Nail -Possible syncopal event leading to fall as it was unwitnessed and pt is poor historian -Dr Fisher on board -Tylenol for pain control, physical therapy #Anemia: H/H today 8.0/22.9 # C4-C5 anterior sublaxation - Case discussed with neurosurgery, Dr Day. Recommends MRI. Daughter has given consent for MRI. Questionnaire filled out. #UTI - UCx---> Alpha Hemolytic Streptococcus -ceftriaxone 1g qd IV Day 4 - Leuk Est 2+. 52 WBCs -Glaucoma -Latanoprost eye drops - Timolol eye drops -DVT ppx -SCDs, TEDs -FEN -No Fluids -Monitor electrolytes -Regular Diet -Dispo: Possible DC tomorrow Visit type - Emergency Visit Emergency Visit: Yes ED Registration Date: 12/16/18 Care time: The patient presented to the Emergency Department on the above date and was hospitalized for further evaluation of their emergent condition. - New Patient This patient is new to me today: No - Critical Care Critical Care patient: No - Discharge Referral Referred to [facility] Med P.C.: No
--- NOTE | 2018-12-21 15:40 | PN ---
Teaching Attending Note Name of Resident: Ramiro Jeff ATTENDING PHYSICIAN STATEMENT I saw and evaluated the patient. I reviewed the resident's note and discussed the case with the resident. I agree with the resident's findings and plan as documented. SUBJECTIVE: Patient is lying in bed with no acute distress, does not want to wear the neck color. OBJECTIVE: Vital Signs Temperature 98.1 F 12/21/18 06:00 Pulse Rate 88 12/21/18 10:00 Respiratory Rate 18 12/21/18 10:00 Blood Pressure 136/80 12/21/18 10:00 O2 Sat by Pulse Oximetry (%) 95 12/20/18 21:00 GENERAL: Awake, alert, and oriented x2 (person and place). In NAD. HEAD: Normal with no signs of trauma. EYES: sclera anicteric; EARS, NOSE, THROAT: Ears normal, LUNGS: Breath sounds equal, clear to auscultation bilaterally anteriorly. HEART: Regular rate and rhythm, normal S1 and S2 ABDOMEN: Soft, nontender, not distended, normoactive bowel sounds LOWER EXTREMITIES:warm, well-perfused. No peripheral edema. NEUROLOGICAL: Gait not observed. PSYCHIATRIC: Cooperative for some parts of physical exam but not all. SKIN: Warm, dry CBCD WBC 5.9 K/mm3 (4.0-10.0) 12/21/18 07:30 RBC 2.60 M/mm3 (3.60-5.2) L 12/21/18 07:30 Hgb 8.0 GM/dL (10.7-15.3) L 12/21/18 07:30 Hct 22.9 % (32.4-45.2) L 12/21/18 07:30 MCV 88.0 fl (80-96) 12/21/18 07:30 MCHC 34.9 g/dl (32.0-36.0) 12/21/18 07:30 RDW 15.5 % (11.6-15.6) 12/21/18 07:30 Plt Count 302 K/MM3 (134-434) 12/21/18 07:30 MPV 7.4 fl (7.5-11.1) L 12/21/18 07:30 CMP Sodium 138 mmol/L (136-145) 12/21/18 07:30 Potassium 3.3 mmol/L (3.5-5.1) L 12/21/18 07:30 Chloride 103 mmol/L (98-107) 12/21/18 07:30 Carbon Dioxide 30 mmol/L (21-32) 12/21/18 07:30 Anion Gap 4 MMOL/L (8-16) L 12/21/18 07:30 BUN 14 mg/dL (7-18) 12/21/18 07:30 Creatinine 0.2 mg/dL (0.55-1.3) L 12/21/18 07:30 Creat Clearance w eGFR > 60 (>60) 12/21/18 07:30 Random Glucose 110 mg/dL (74-106) H 12/21/18 07:30 Calcium 7.5 mg/dL (8.5-10.1) L 12/21/18 07:30 Total Bilirubin 0.6 mg/dL (0.2-1) 12/17/18 07:00 AST 17 U/L (15-37) 12/17/18 07:00 ALT 17 U/L (13-61) 12/17/18 07:00 Alkaline Phosphatase 91 U/L (45-117) 12/17/18 07:00 Total Protein 6.4 g/dl (6.4-8.2) 12/17/18 07:00 Albumin 3.0 g/dl (3.4-5.0) L 12/17/18 07:00 CARDIAC ENZYMES Creatine Kinase 107 U/L (26-192) 12/16/18 20:19 Troponin I 0.02 ng/ml (0.00-0.05) 12/17/18 03:20 Current Medications Generic Name Dose Route Start Last Admin Trade Name Freq PRN Reason Stop Dose Admin Acetaminophen 650 mg 12/17/18 11:09 Tylenol - PO Q6H PRN PAIN Ceftriaxone Sodium 1 gm/ 50 mls @ 100 mls/hr 12/18/18 10:00 12/21/18 10:10 Dextrose IVPB 100 mls/hr DAILY DENISA Administration Latanoprost 1 drop 12/17/18 22:00 12/20/18 22:42 Xalatan 0.005% Eye Drops - OU 1 drop HS DENISA Administration Ondansetron HCl 4 mg 12/17/18 11:10 Zofran Injection IVPUSH Q6H PRN NAUSEA AND/OR VOMITING Timolol Maleate 1 drop 12/17/18 22:00 12/21/18 10:12 Timoptic 0.5% OU 1 drop BID DENISA Administration Home Medications Medication Instructions Recorded Aspirin [Ecotrin] 81 mg PO DAILY 01/04/18 Alendronate Sodium [Binosto] 10 mg PO DAILY 08/16/18 Citalopram Hydrobromide [Celexa -] 10 mg PO DAILY 08/16/18 Ascorbic Acid [Vitamin C] 500 mg PO DAILY 11/29/18 Brinzolamide [Azopt] 1 drop OU BID 11/29/18 Calcium Carbonate [Calcium] 500 mg PO DAILY 11/29/18 Cholecalciferol (Vitamin D3) 2,000 unit PO DAILY 11/29/18 [Vitamin D3] Lactobacillus Acidophilus 1 each PO DAILY 11/29/18 [Probiotic] Latanoprost 0.005% Eye Drops 1 drop OU HS 11/29/18 [Xalatan 0.005% Eye Drops -] Timolol 0.5% [Timoptic 0.5%] 1 drop OU BID 11/29/18 Vitamin B Complex [B Complex] 1 each PO DAILY 11/29/18 ASSESSMENT AND PLAN: Patient is a 88yo female with Pmhx of CAD, HTN, HLD, hyperthyroid, frequent falls, dementia. who presented after a fall. she was found ot have R hip Fx # Acute R intertrochanteric Fx s/p gamma nailing, POD #2 , pain control with tylenol hold lovenox due to anemia. if HB is stable , can resume lovenox due to high risk of DVT, PT evaluation. Patient is not wearing collar. # Acute blood loss anemia: stable HB today s/p 2 units RBC Tx 12/18 , hold ASA and Lovenox. # Anterior cervical subluxation:C4-C5 (Grade 1-2) C-collar and Surgical eval , MRI is pending . Unable to reach daughter for MRI screening # UTI: on ceftriaxone ( day 5) . urine cx reviewed. fall precaution: likely mechanical. # HTN: resolved with no medications will need rehab [place] [facility].
[2018-12-21] MEDS: KCL 10 MEQ IVPB 10 MEQ/100 ML INFUS.BAG IVPB SCH ×2 (18:59→20:43)
[2018-12-21] MEDS: LATANOPROST 0.005% OPHTH SOLN 2.5ML BOTTLE OU SCH (21:03)
[2018-12-21 23:11] VITALS: BMI 19.4
[2018-12-22 07:52] LABS: HEMOGLOBIN 8.3 GM/dL (10.7-15.3); MCH 30.3 pg (25.7-33.7); MCHC 34.5 g/dl (32.0-36.0); MEAN CELL VOLUME 87.9 fl (80-96); MEAN PLT VOLUME 7.6 fl (7.5-11.1); PLATELET COUNT 338 K/MM3 (134-434); RBC 2.73 M/mm3 (3.60-5.2); WHITE BLOOD COUNT 6.4 K/mm3 (4.0-10.0)
[2018-12-22 08:40] LABS: ANION GAP 7 MMOL/L (8-16); BLOOD UREA NITROGEN 13 mg/dL (7-18); CHLORIDE 106 mmol/L (98-107); CO2 28 mmol/L (21-32); CREATININE 0.2 mg/dL (0.55-1.3); GLUCOSE,RANDOM 103 mg/dL (74-106); MAGNESIUM 2.2 mg/dL (1.8-2.4); PHOSPHOROUS 3.2 mg/dL (2.5-4.9); POTASSIUM 3.9 mmol/L (3.5-5.1); SODIUM 141 mmol/L (136-145)
[2018-12-22] MEDS ORDERED: DEXTROSE 5%-WATER - 50 ML IVPB ONE (08:49)
[2018-12-22] MEDS ORDERED: PT OWN MED DRAWER 7, Y5N ONE (08:49)
[2018-12-22] MEDS ORDERED: cefTRIAXone SODIUM 1 GM VIAL ONE (08:49)
[2018-12-22] MEDS: CEFTRIAXONE 1 GM in DEXTROSE 5%-WATER - 50 ML IVPB SCH (09:55)
[2018-12-22] MEDS: TIMOLOL 0.5% OPHTHALMIC SOL 5 ML BOTTLE OU SCH (09:56)
--- NOTE | 2018-12-22 10:48 | PN ---
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
--- NOTE | 2018-12-22 15:45 | DS ---
Physical Exam: SUBJECTIVE: Patient seen and examined at bedside. No acute events overnight. Daughter at bedside. OBJECTIVE: Vital Signs Period Temp Pulse Resp BP Sys/Pulido Pulse Ox Last 24 Hr 97.9 F-98.6 F 80-101 18-20 102-142/46-80 97 PHYSICAL EXAM GENERAL: Frail, resting in bed, doesnt open eyes when prompted HEAD: NC/AT ENT: MMM LUNGS: CTAB HEART: RRR ABDOMEN: NDNT No hsm. EXTREMITIES: TEDs on, SCD's/s LABS Laboratory Results - last 24 hr 12/22/18 12/22/18 07:00 07:00 WBC 6.4 RBC 2.73 L Hgb 8.3 L Hct 24.0 L MCV 87.9 MCH 30.3 MCHC 34.5 RDW 16.0 H Plt Count 338 MPV 7.6 Sodium 141 Potassium 3.9 Chloride 106 Carbon Dioxide 28 Anion Gap 7 L BUN 13 Creatinine 0.2 L Creat Clearance w eGFR > 60 Random Glucose 103 Calcium 8.0 L Phosphorus 3.2 Magnesium 2.2 HOSPITAL COURSE: Date of Admission:12/16/18 Pt is an 88 y/o F w/ PMH CAD, HTN, HLD, hyperthyroidism, OA, dementia, frequent falls who presented to the hospital after unwitnessed fall. Pt was found to have Right femoral intertrochanteric fracture. Pt subsequently underwent a right gamma nailing procedure with Dr Fisher. Furthermore, pt was found to have a sublaxation at the level of C4-C5. Pt's daughter was initially reluctant to have pt undergo an MRI as she did not want pt to have surgery if it was recommended post MRI results. Pt's daughter ultimately agreed upon the MRI however pt was uncooperative during MRI and MRI could not be performed. Furthermore, pt was noted to be anemic during stay with an H/H of 6.7/19.5. Pt subsequently received 2 U PRBCs. Additionally, pt was noted to have a UTI during stay and was treated with 5 days of Ceftriaxone. Daughter was informed to follow up with Neurosurgery, Dr Hakan Day as an outpatient to follow the sublaxation. Date of Discharge: 12/22/18 Minutes to complete discharge: 35 Discharge Summary Reason For Visit: URIN TRACT INFECTION/FRACTURE OF HIP/FALL Current Active Problems Hip fracture (Acute) Knee pain, right (Acute) UTI (urinary tract infection) (Acute) Condition: Improved - Instructions Diet, Activity, Other Instructions: You presented to the hospital due to a fall. You were found to have a right hip fracture. You were also found to have a urinary tract infection. Please follow up with the orthopedic surgeon in [address] Fisher. A referral has been provided in your discharge papers. Please follow up with your primary care doctor this week as well. On imaging of your neck, you were found to have a misalignment of the bones in your neck which may put you at increased risk of further damage. You were evaluated by Neurosurgery and recommended to undergo an MRI of your Spine. Please continue to wear the neck color as prescribed by neurosurgery. You were unable to tolerate the MRI during your hospital stay. It is still recommended that you undergo the MRI as an outpatient. Please follow up with Dr Dipak Day, Neurosurgeon. A referral has been provided for you in your discharge paperwork. Please return to the Emergency Department if at any time you begin to experience chest pain, shortness of breath, nausea/vomiting, fevers, or any other abnormal symptom. Referrals: Dipak Day MD, [facility] [Staff Physician] - 1 Week Saud Fisher MD [Staff Physician] - 1 Week Prasad Golden MD [Primary Care Provider] - 1 Week Disposition: LONGTERM FACILITY - Home Medications Comprehensive Discharge Medication List: Ambulatory Orders Aspirin [Ecotrin] 81 mg PO DAILY 01/04/18 Alendronate Sodium [Binosto] 10 mg PO DAILY 08/16/18 Citalopram Hydrobromide [Celexa -] 10 mg PO DAILY 08/16/18 Ascorbic Acid [Vitamin C] 500 mg PO DAILY 11/29/18 Brinzolamide [Azopt] 1 drop OU BID 11/29/18 Calcium Carbonate [Calcium] 500 mg PO DAILY 11/29/18 Cholecalciferol (Vitamin D3) [Vitamin D3] 2,000 unit PO DAILY 11/29/18 Lactobacillus Acidophilus [Probiotic] 1 each PO DAILY 11/29/18 Latanoprost 0.005% Eye Drops [Xalatan 0.005% Eye Drops -] 1 drop OU HS 11/29/18 Timolol 0.5% [Timoptic 0.5%] 1 drop OU BID 11/29/18 Vitamin B Complex [B Complex] 1 each PO DAILY 11/29/18 This patient is new to me today: No Emergency Visit: Yes ED Registration Date: 12/16/18 Care time: The patient presented to the Emergency Department on the above date and was hospitalized for further evaluation of their emergent condition. Critical Care patient: No - Discharge Referral Referred to [facility] No
[2018-12-22 18:51] VITALS: BP 155/83; PULSE 96; TEMP 97.5
--- NOTE | 2018-12-22 21:19 | PN ---
Teaching Attending Note Name of Resident: Ramiro Jeff ATTENDING PHYSICIAN STATEMENT I saw and evaluated the patient. I reviewed the resident's note and discussed the case with the resident. I agree with the resident's findings and plan as documented. SUBJECTIVE: Patient is feeling better refusing MRI, and does not want to wear the neck color OBJECTIVE: Vital Signs Temperature 97.5 F L 12/22/18 17:50 Pulse Rate 96 H 12/22/18 17:50 Respiratory Rate 20 12/22/18 17:50 Blood Pressure 155/83 12/22/18 17:50 O2 Sat by Pulse Oximetry (%) 97 12/22/18 09:00 GENERAL: Awake, alert, and oriented x2 (person and place). In NAD. HEAD: Normal with no signs of trauma. EYES: sclera anicteric; EARS, NOSE, THROAT: Ears normal, LUNGS: Breath sounds equal, clear to auscultation bilaterally anteriorly. HEART: Regular rate and rhythm, normal S1 and S2 ABDOMEN: Soft, nontender, not distended, normoactive bowel sounds LOWER EXTREMITIES:warm, well-perfused. No peripheral edema. NEUROLOGICAL: Gait not observed. PSYCHIATRIC: Cooperative for some parts of physical exam but not all. SKIN: Warm, dry CBCD WBC 6.4 K/mm3 (4.0-10.0) 12/22/18 07:00 RBC 2.73 M/mm3 (3.60-5.2) L 12/22/18 07:00 Hgb 8.3 GM/dL (10.7-15.3) L 12/22/18 07:00 Hct 24.0 % (32.4-45.2) L 12/22/18 07:00 MCV 87.9 fl (80-96) 12/22/18 07:00 MCHC 34.5 g/dl (32.0-36.0) 12/22/18 07:00 RDW 16.0 % (11.6-15.6) H 12/22/18 07:00 Plt Count 338 K/MM3 (134-434) 12/22/18 07:00 MPV 7.6 fl (7.5-11.1) 12/22/18 07:00 CMP Sodium 141 mmol/L (136-145) 12/22/18 07:00 Potassium 3.9 mmol/L (3.5-5.1) 12/22/18 07:00 Chloride 106 mmol/L (98-107) 12/22/18 07:00 Carbon Dioxide 28 mmol/L (21-32) 12/22/18 07:00 Anion Gap 7 MMOL/L (8-16) L 12/22/18 07:00 BUN 13 mg/dL (7-18) 12/22/18 07:00 Creatinine 0.2 mg/dL (0.55-1.3) L 12/22/18 07:00 Creat Clearance w eGFR > 60 (>60) 12/22/18 07:00 Random Glucose 103 mg/dL (74-106) 12/22/18 07:00 Calcium 8.0 mg/dL (8.5-10.1) L 12/22/18 07:00 Total Bilirubin 0.6 mg/dL (0.2-1) 12/17/18 07:00 AST 17 U/L (15-37) 12/17/18 07:00 ALT 17 U/L (13-61) 12/17/18 07:00 Alkaline Phosphatase 91 U/L (45-117) 12/17/18 07:00 Total Protein 6.4 g/dl (6.4-8.2) 12/17/18 07:00 Albumin 3.0 g/dl (3.4-5.0) L 12/17/18 07:00 CARDIAC ENZYMES Creatine Kinase 107 U/L (26-192) 12/16/18 20:19 Troponin I 0.02 ng/ml (0.00-0.05) 12/17/18 03:20 Home Medications Medication Instructions Recorded Aspirin [Ecotrin] 81 mg PO DAILY 01/04/18 Alendronate Sodium [Binosto] 10 mg PO DAILY 08/16/18 Citalopram Hydrobromide [Celexa -] 10 mg PO DAILY 08/16/18 Ascorbic Acid [Vitamin C] 500 mg PO DAILY 11/29/18 Brinzolamide [Azopt] 1 drop OU BID 11/29/18 Calcium Carbonate [Calcium] 500 mg PO DAILY 11/29/18 Cholecalciferol (Vitamin D3) 2,000 unit PO DAILY 11/29/18 [Vitamin D3] Lactobacillus Acidophilus 1 each PO DAILY 11/29/18 [Probiotic] Latanoprost 0.005% Eye Drops 1 drop OU HS 11/29/18 [Xalatan 0.005% Eye Drops -] Timolol 0.5% [Timoptic 0.5%] 1 drop OU BID 11/29/18 Vitamin B Complex [B Complex] 1 each PO DAILY 11/29/18 ASSESSMENT AND PLAN: Patient is a 88yo female with Pmhx of CAD, HTN, HLD, hyperthyroid, frequent falls, dementia. who presented after a fall. she was found ot have R hip Fx # Acute R intertrochanteric Fx s/p gamma nailing, POD #2 , pain control with tylenol can resume lovenox due to high risk of DVT, PT evaluation. Patient is not wearing collar. # Acute blood loss anemia: stable HB today s/p 2 units RBC Tx 12/18 , hold ASA and Lovenox. # Anterior cervical subluxation:C4-C5 (Grade 1-2) C-collar and Surgical eval , refused MRI # UTI: on ceftriaxone ( day 5) . urine cx reviewed. fall precaution: likely mechanical. # HTN: resolved with no medications dc to rehab
== END 2018-12-22 20:41 | DRG 956 ==
LOC: JER 19:08 → JERBED 23:10 → J7W 12-17 01:59 → J6S 12-17 12:23
PROVIDERS: ADMIT Internal Medicine; ATTEND Internal Medicine
PROC: 0QS606Z Reposition Right Upper Femur with Intramedullary Internal Fixation Device, Open Approach (ICD-10-PCS; principal; 2018-12-17 09:30)
PROC: 30233N1 Transfusion of Nonautologous Red Blood Cells into Peripheral Vein, Percutaneous Approach (ICD-10-PCS; 2018-12-18)
DX: S82.141A Displaced bicondylar fracture of right tibia, initial encounter for closed fracture (principal); S72.141A Displaced intertrochanteric fracture of right femur, initial encounter for closed fracture; S13.150A Subluxation of C4/C5 cervical vertebrae, initial encounter; N39.0 Urinary tract infection, site not specified; D62 Acute posthemorrhagic anemia; W18.39XA Other fall on same level, initial encounter; Z91.81 History of falling; Y93.89 Activity, other specified; Y92.89 Other specified places as the place of occurrence of the external cause; Y99.8 Other external cause status; B95.4 Other streptococcus as the cause of diseases classified elsewhere; I25.10 Atherosclerotic heart disease of native coronary artery without angina pectoris; R41.0 Disorientation, unspecified; I10 Essential (primary) hypertension; E78.5 Hyperlipidemia, unspecified; E05.90 Thyrotoxicosis, unspecified without thyrotoxic crisis or storm; M81.0 Age-related osteoporosis without current pathological fracture; R29.6 Repeated falls; F03.90 Unspecified dementia, unspecified severity, without behavioral disturbance, psychotic disturbance, mood disturbance, and anxiety; H40.9 Unspecified glaucoma
CPT/HCPCS: 36415; 36430; 70450-TC; 71045-TC-FY; 72125-TC; 73030-TC-RT-FY; 73523-TC-FY; 76000-TC-FY; 80048; 80053; 81003; 81015; 82550; 82962; 83735; 84100; 84484; 85025; 85027; 85610; 85730; 86850; 86900; 86901; 86922; 87086; 87186; 93005; 93010; 93880-TC; 94760; 97116-GP; 97162-GP; 99285-25; J0131; P9038; P9058